=== PATIENT | male | born 1985 | race Caucasian/White ===

== ENCOUNTER → 2021-06-20 09:37 | Outpatient (BNVA) | payer OTHER, SELFPAY | PROVIDERS: PCP Physician Assistant Medical; Visit Provider Internal Medicine | DX: G71.00 Muscular dystrophy, unspecified (principal); I45.6 Pre-excitation syndrome; F11.99 Opioid use, unspecified with unspecified opioid-induced disorder; F10.10 Alcohol abuse, uncomplicated; F12.10 Cannabis abuse, uncomplicated; F17.200 Nicotine dependence, unspecified, uncomplicated; Z51.81 Encounter for therapeutic drug level monitoring | CPT/HCPCS: 80305; 99202 ==

== ENCOUNTER → 2021-06-27 13:12 | Outpatient (BNVA) | payer OTHER, SELFPAY | PROVIDERS: PCP Physician Assistant Medical; Visit Provider Internal Medicine | DX: Z51.81 Encounter for therapeutic drug level monitoring (principal); F11.90 Opioid use, unspecified, uncomplicated | CPT/HCPCS: 80305; 99212 ==

== ENCOUNTER → 2021-07-04 13:20 | Outpatient (BNVA) | payer OTHER, SELFPAY | PROVIDERS: PCP Physician Assistant Medical; Visit Provider Internal Medicine | DX: F11.20 Opioid dependence, uncomplicated (principal); Z51.81 Encounter for therapeutic drug level monitoring; Z79.899 Other long term (current) drug therapy | CPT/HCPCS: 80305; 99212 ==

== ENCOUNTER → 2021-07-11 13:54 | Outpatient (BNVA) | payer OTHER, SELFPAY | PROVIDERS: PCP Physician Assistant Medical; Visit Provider Internal Medicine | DX: F11.20 Opioid dependence, uncomplicated (principal); Z51.81 Encounter for therapeutic drug level monitoring; Z79.899 Other long term (current) drug therapy | CPT/HCPCS: 80305; 99212 ==

== ENCOUNTER → 2021-07-17 10:47 | Outpatient (BNVA) | payer OTHER, SELFPAY | PROVIDERS: Visit Provider Internal Medicine | DX: F11.90 Opioid use, unspecified, uncomplicated (principal) | CPT/HCPCS: 80305; 99212 ==

== ENCOUNTER → 2021-07-28 11:45 | Outpatient (BNVA) | payer OTHER, SELFPAY | PROVIDERS: Visit Provider Internal Medicine | DX: Z51.81 Encounter for therapeutic drug level monitoring (principal); F11.90 Opioid use, unspecified, uncomplicated | CPT/HCPCS: 80305; 99212 ==

== ENCOUNTER → 2021-08-11 15:47 | Outpatient (BNVA) | payer OTHER, SELFPAY | PROVIDERS: Visit Provider Internal Medicine | DX: Z51.81 Encounter for therapeutic drug level monitoring (principal); F11.90 Opioid use, unspecified, uncomplicated | CPT/HCPCS: 99212 ==

== ENCOUNTER → 2021-08-25 10:15 | Outpatient (BNVA) | payer OTHER, SELFPAY | PROVIDERS: Visit Provider Internal Medicine | DX: Z51.81 Encounter for therapeutic drug level monitoring (principal); F11.90 Opioid use, unspecified, uncomplicated; F17.200 Nicotine dependence, unspecified, uncomplicated | CPT/HCPCS: 80305; 99212 ==

== ENCOUNTER → 2021-09-25 10:45 | Outpatient (BNVA) | payer OTHER, SELFPAY | PROVIDERS: Visit Provider Internal Medicine | DX: Z51.81 Encounter for therapeutic drug level monitoring (principal); F11.20 Opioid dependence, uncomplicated | CPT/HCPCS: 80305; 99212 ==

== ENCOUNTER → 2021-10-23 10:27 | Outpatient (BNVA) | payer OTHER, SELFPAY | PROVIDERS: Visit Provider Internal Medicine | DX: Z51.81 Encounter for therapeutic drug level monitoring (principal); Z79.899 Other long term (current) drug therapy | CPT/HCPCS: 80305 ==

== ENCOUNTER → 2021-11-17 09:59 | Outpatient (BNVA) | payer OTHER, SELFPAY | PROVIDERS: Visit Provider Internal Medicine | DX: Z51.81 Encounter for therapeutic drug level monitoring (principal); F11.20 Opioid dependence, uncomplicated | CPT/HCPCS: 80305; 99211 ==

== ENCOUNTER → 2022-01-12 10:24 | Outpatient (BNVA) | payer OTHER, SELFPAY | PROVIDERS: Visit Provider Internal Medicine | DX: Z51.81 Encounter for therapeutic drug level monitoring (principal); F11.20 Opioid dependence, uncomplicated | CPT/HCPCS: 80305; 99211 ==

== ENCOUNTER → 2022-03-09 10:16 | Outpatient (BNVA) | payer OTHER, SELFPAY | PROVIDERS: Visit Provider Internal Medicine | DX: Z51.81 Encounter for therapeutic drug level monitoring (principal); F11.20 Opioid dependence, uncomplicated | CPT/HCPCS: 80305; 99212 ==

== ENCOUNTER → 2022-04-11 13:50 | Outpatient (BNVA) | payer OTHER, SELFPAY | PROVIDERS: Visit Provider Internal Medicine | DX: Z51.81 Encounter for therapeutic drug level monitoring (principal); F11.20 Opioid dependence, uncomplicated | CPT/HCPCS: 80305; 96372; Q9992 ==

== ENCOUNTER → 2022-05-02 13:56 | Outpatient (BNVA) | payer OTHER, SELFPAY | PROVIDERS: Visit Provider Internal Medicine | DX: Z51.81 Encounter for therapeutic drug level monitoring (principal); F11.20 Opioid dependence, uncomplicated | CPT/HCPCS: 80305; 96372; Q9992 ==

== ENCOUNTER → 2022-06-01 13:27 | Outpatient (BNVA) | payer OTHER, SELFPAY | PROVIDERS: Visit Provider Internal Medicine | DX: F11.20 Opioid dependence, uncomplicated (principal); Z51.81 Encounter for therapeutic drug level monitoring; Z79.899 Other long term (current) drug therapy | CPT/HCPCS: Q9991 ==

== ENCOUNTER → 2022-08-22 12:56 | Outpatient (BNVA) | payer OTHER, SELFPAY | PROVIDERS: Visit Provider Psychiatry & Neurology Neurology | DX: G71.02 Facioscapulohumeral muscular dystrophy (principal); M54.9 Dorsalgia, unspecified; M41.9 Scoliosis, unspecified; R20.0 Anesthesia of skin; R20.2 Paresthesia of skin | CPT/HCPCS: 99202 ==

== ENCOUNTER 2022-09-10 17:57 | Outpatient (REF) | payer OTHER, SELFPAY ==
--- NOTE | ~2022-09-10 | MR_ITS ---
EXAMINATION: MR LUMBAR SPINE WITHOUT CONTRAST CLINICAL INFORMATION: Dorsalgia. COMPARISON: None TECHNIQUE: MRI of the lumbar spine was obtained using routine sequences without contrast. FINDINGS: The lumbar vertebral bodies maintain normal heights and alignment. Mild edema seen at the anterior superior corner of T12, likely degenerative. The disc heights are preserved. The distal spinal cord appears normal. The conus medullaris terminates normally at the L1 level. There is significant fatty atrophy of the paraspinal and gluteal musculature. The imaged portions of the intra-abdominal and intrapelvic contents are within normal limits. SPINAL LEVELS: L1-L2: No posterior disc abnormality. No spinal canal or neural foraminal stenosis. L2-L3: No posterior disc abnormality. No spinal canal or neural foraminal stenosis. L3-L4: No posterior disc abnormality. No spinal canal or neural foraminal stenosis. L4-L5: Mild disc bulging with mild facet arthropathy. Mild narrowing of the bilateral neural foramina. No spinal canal stenosis. L5-S1: Prominent epidural fat. No spinal canal stenosis. Mild facet arthropathy. No neural foraminal stenosis. MR/MR lumbar spine wo con IMPRESSION: 1. No significant narrowing of the spinal canal or neural foramina. No nerve root compression identified. 2. Significant fatty atrophy of the paraspinal and gluteal musculature of uncertain etiology but given the patient's age, further evaluation is recommended.
== END 2022-09-10 17:58 | disposition home or self-care (01) ==
LOC: HO.MRI 17:57
PROVIDERS: Visit Provider Psychiatry & Neurology Neurology
DX: M54.9 Dorsalgia, unspecified (principal); M41.9 Scoliosis, unspecified; G71.02 Facioscapulohumeral muscular dystrophy
CPT/HCPCS: 72148

== ENCOUNTER 2022-10-25 13:18 | Outpatient (REF) | payer OTHER, SELFPAY ==
--- NOTE | 2022-10-25 09:30 | EMG_ITS ---
Bilateral median and ulnar motor and sensory studies were performed. Bilateral radial sensory studies were performed and paraspinal muscles were tested with a needle. IMPRESSION: 1. Wmad-af-bnypctkw bilateral median neuropathy across carpal tunnel. 2. 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 MD ABI Siddiqui/DEEPTHI / [id number]
== END 2022-10-25 13:19 | disposition home or self-care (01) ==
LOC: HO.NEURO 13:18
PROVIDERS: Visit Provider Psychiatry & Neurology Neurology
DX: R20.0 Anesthesia of skin (principal); R20.2 Paresthesia of skin
CPT/HCPCS: 95886; 95911

== ENCOUNTER → 2022-11-26 12:59 | Outpatient (BNVA) | payer OTHER, SELFPAY | PROVIDERS: Visit Provider Psychiatry & Neurology Neurology | DX: G71.02 Facioscapulohumeral muscular dystrophy (principal); M54.9 Dorsalgia, unspecified; M41.9 Scoliosis, unspecified; R20.0 Anesthesia of skin; R20.2 Paresthesia of skin; Z99.3 Dependence on wheelchair | CPT/HCPCS: 99212 ==

== ENCOUNTER 2023-04-18 22:18 | Emergency (ER) | payer OTHER, SELFPAY ==
[2023-04-18 22:28] VITALS: BP 159/105; PULSE 86; RESP 18; TEMP 37; O2SAT 96; BMI 40.7
[2023-04-18 22:55] LABS: MANUAL DIFF FLAG NO
[2023-04-18 22:57] LABS: Appearance Urine Clear; Color Urine Dark Yellow; Glucose Urine UA Negative (Negative); Leukocyte Esterase Urine Negative (Negative); Nitrite Urine Negative (Negative); Specific Gravity - Urine >= 1.030 (1.005-1.025); Urine Blood Negative (Negative); Urine Ketones Negative (Negative); Urine Protein Negative (Neg-Trace)
[2023-04-18 23:00] LABS: Basophils Absolute Auto 0.1 X10*3/uL (0.0-0.2); Basophils Percent Auto 0.4 % (0-2); Eosinophils Absolute Auto 0.2 X10*3/uL (0.0-0.4); Eosinophils Percent Auto 1.2 % (0-4); Hematocrit 48.2 % (42.0-52.0); Hemoglobin 16.1 g/dl (14.0-18.0); Imm Gran Abs Auto 0.02 X10*3/uL (0.00-0.03); Imm Gran Pct Auto 0.2 % (0.0-0.4); Lymphocytes Absolute Auto 4.2 X10*3/uL (1.2-4.9); Lymphocytes Percent Auto 31.8 % (20-40); Mean Corpuscular HGB Conc 33.4 g/dl (31.0-36.0); Mean Corpuscular Hemoglobin 31.8 pg (27.0-33.0); Mean Corpuscular Volume 95.3 fL (80.0-98.0); Mean Platelet Volume 11.5 fL (9.4-12.4); Monocytes Absolute Auto 1.1 X10*3/uL (0.1-1.2); Monocytes Percent Auto 8.3 % (2-11); Neutrophils Absolute Auto 7.6 x10*3/uL (2.0-8.3); Neutrophils Percent Auto 58.1 % (45-73); Platelet Count 243 X10*3/uL (160-400); Red Blood Count 5.06 X10*6/uL (4.60-5.80); Red Cell Distribution Width 13.2 % (11.0-16.0); White Blood Count 13.1 X10*3/uL (4.8-10.8)
[2023-04-18 23:12] LABS: Anion Gap 14 (12-20); Blood Urea Nitrogen 12 mg/dL (9-16); Calcium 9.9 mg/dL (8.4-10.2); Carbon Dioxide 27 mmol/L (22-29); Chloride 102 mmol/L (96-108); Creatinine Clr Calc Pharmacy 191.1; Estimated Glomerular Filt Rate > 60; Glucose Random 128 mg/dL (60-115); Potassium 4.1 mmol/L (3.3-5.1); Sodium 139 mmol/L (135-145)
--- NOTE | 2023-04-18 23:28 | ED_ITS ---
HPI - Male Genitourinary General Chief complaint: Urogenital-Male Stated complaint: ?uti Time Seen by Provider: 04/18/23 22:57 Source: patient Mode of arrival: ambulatory Limitations: no limitations History of Present Illness HPI Narrative: Patient is a 37-year-old male presents emergency department for evaluation of burning sensation to the shaft of his penis. He is being followed by his primary care provider for a fungal infection for which he is being prescribed clotrimazole. He states he has been using this for the past week but his symptoms continue. He states he initially had testing including gonorrhea, chlamydia, and a urinalysis all of which were negative. He denies concern of sexually transmitted infections at this time, he is only 1 sexual partner, his partner is not new. He denies any swelling, fevers, chills, burning upon urination. Related Data Home Medications Medication Instructions Recorded Confirmed albuterol sulfate 90 mcg/actuation 0 mcg inhalation 08/20/22 11/26/22 aerosol inhaler lisinopril 20 mg tablet 20 mg PO DAILY 08/20/22 11/26/22 Allergies Allergy/AdvReac Type Severity Reaction Status Date / Time naproxen Allergy Mild Unknown Verified 04/18/23 22:27 acetaminophen [From Vicodin] Allergy Unknown Itching Verified 04/18/23 22:27 baclofen Allergy Unknown ITCH, Verified 04/18/23 22:27 Dizziness hydrocodone [From Vicodin] Allergy Unknown Itching Verified 04/18/23 22:27 tramadol [TRAMADOL] Allergy Unknown ITCH Verified 04/18/23 22:27 [facility] Past Medical History Attestation statement: The following information was validated with the patient. Source: old records reviewed Medical History Back pain Carpal tunnel syndrome GERD (gastroesophageal reflux disease) HTN (hypertension) Hyperlipidemia Hypoxemia Muscular dystrophy Numbness and tingling in both hands Opioid use disorder GABRIEL on CPAP Right hip pain Scoliosis Tobacco use disorder WPW (Zfike-Vybdrvgvu-Zmdld syndrome) Family History Family History Mother Hypotension Muscular dystrophy Father Heart disease Social History Social History Alcohol intake: current Alcohol intake frequency: holidays/special occasions only Patient Tobacco Use Status: Current everyday Tobacco user Cigarette Packs Per Day: 1 Years Smoked: 20 e-Cigarette/Vaping Use: Never Used Substance Use Type: Marijuana Advance Directives: No Advance Directives Information Provided: Yes Physical Exam Vital Signs: Vital Signs: Last Vital Signs Temp 98.6 F 04/18/23 22:28 Pulse 86 04/18/23 22:28 Resp 18 04/18/23 22:28 BP 159/105 H 04/18/23 22:28 Pulse Ox 96 04/18/23 22:28 O2 Del Method Room Air 04/18/23 22:28 BMI result Body Mass Index 40.7 Vital signs have been reviewed as normal and appeared to be correct. Blood pressure initially elevated 159/105, patient with history of hypertension and anxiety, upon repeat 134/87..? Heart rate normal.? Respiration rate normal. T emperature normal.? Oxygen saturation normal. Appearance: Alert.?Oriented to person, place and time. No acute distress.?Normal affect. CVS: Heart sounds normal. Normal heart rate and rhythm.? Pulses normal.?? Respiratory: No respiratory distress.? Lung sounds clear to auscultation bilaterally?? Abdomen: Soft and non-tender. Normoactive bowel sounds. ? Genitourinary: Performed with frankie gonzalez; Sandip. Tinea cruris of scrotum/penile shaft with small fissure adjacent to the urethral meatus Skin: Skin warm and dry.? Normal skin color.? Neuro: Moves all extremities spontaneously. Sensation intact bilaterally. Ambulates with normal steady gait. Medical Decision Making Medical Decision Making MDM Narrative: Patient is a 37-year-old male who presents emergency department for painful irritation of the penis for which she is being followed by his primary care provider being treated for yeast infection with topical clotrimazole. Examination at this time is consistent with yeast infection, there is a small fissure adjacent to the urethral meatus. At this time I advised patient he should continue with current treatment, offered repeat testing for sexually transmitted infection, however he declines concern at this time. I reviewed serum labs obtained from triage; CBC reveals mild leukocytosis of 13.1 without left shift. BMP is overall unremarkable, aside from mildly elevated glucose. Urinalysis is not consistent with urinary tract infection. Patient will follow- up with primary care provider, and reviewed worrisome signs and symptoms that would warrant re-evaluation the emergency department. Differential Diagnosis Differential Diagnoses: The differential diagnosis associated with the presentation includes (Herpes simplex virus, chlamydia, gonorrhea, syphilis, tinea cruris, Cathy, urinary tract infection) Lab Data [facility] Lab Attestation statement: I reviewed the patient's lab results. (Findings As noted in [facility] narrative) 04/18/23 22:50 04/18/23 22:50 Labs: Lab Results 04/18/23 04/18/23 04/18/23 Range/Units 22:50 22:50 22:50 WBC 13.1 H (4.8-10.8) X10*3/uL RBC 5.06 (4.60-5.80) X10*6/uL Hgb 16.1 (14.0-18.0) g/dl Hct 48.2 (42.0-52.0) % MCV 95.3 (80.0-98.0) fL MCH 31.8 (27.0-33.0) pg MCHC 33.4 (31.0-36.0) g/dl RDW 13.2 (11.0-16.0) % Plt Count 243 (160-400) X10*3/uL MPV 11.5 (9.4-12.4) fL Immature Gran % (Auto) 0.2 (0.0-0.4) % Neut % (Auto) 58.1 (45-73) % Lymph % (Auto) 31.8 (20-40) % Wake % (Auto) 8.3 (2-11) % Eos % (Auto) 1.2 (0-4) % Baso % (Auto) 0.4 (0-2) % Lymph # (Auto) 4.2 (1.2-4.9) X10*3/uL Wake # (Auto) 1.1 (0.1-1.2) X10*3/uL Eos # (Auto) 0.2 (0.0-0.4) X10*3/uL Baso # (Auto) 0.1 (0.0-0.2) X10*3/uL Abs Immat Gran (auto) 0.02 (0.00-0.03) X10*3/uL Absolute Neuts (auto) 7.6 (2.0-8.3) x10*3/uL Absolute Nucleated RBC 0.000 (0.0-0.012) X10*3/uL Nucleated RBC % (auto) 0.0 (0.0-0.2) /100WBC Sodium 139 (135-145) mmol/L Potassium 4.1 (3.3-5.1) mmol/L Chloride 102 (96-108) mmol/L Carbon Dioxide 27 (22-29) mmol/L Anion Gap 14 (12-20) BUN 12 (9-16) mg/dL Creatinine 0.65 (0.5-1.4) mg/dL Estim Creat Clear Calc 191.1 Estimated GFR > 60 Random Glucose 128 H (60-115) mg/dL Calcium 9.9 (8.4-10.2) mg/dL Urine Color Dark Yellow Urine Appearance Clear Urine pH 6.0 (5.0-9.0) Ur Specific [place] >= 1.030 H (1.005-1.025) Urine Protein Negative (Neg-Trace) mg/dL Urine Glucose (UA) Negative (Negative) mg/dL Urine Ketones Negative (Negative) mg/dL Urine Blood Negative (Negative) Urine Nitrite Negative (Negative) Ur Leukocyte Esterase Negative (Negative) Discharge Plan Discharge Clinical Impression: Tinea cruris Patient Disposition: Home, Self-Care Instructions: Shailesh Stephen (ED) Additional Instructions: Continue using the antifungal cream as prescribed by your primary care provider. Please contact their office tomorrow to arrange for follow-up You may return back to emergency department any new or worsening symptoms or concerns. Prescriptions: No Action lisinopril 20 mg tablet 20 mg PO DAILY albuterol sulfate 90 mcg/actuation HFA aerosol inhaler 0 mcg inhalation Referrals: Physician,Unknown J [Primary Care Provider] -
--- NOTE | 2023-04-18 23:35 | PC.NURSE ---
Pt A&Ox4, Pt denies any pain at this time, reports burning to head of penis x 2 weeks and recent tx for yeast infection, denies pain/discharge/itching or pain with urination. Pt denies any ABD pain, N/V/D.
== END 2023-04-19 00:12 | disposition home or self-care (01) ==
PROVIDERS: Emergency Provider Student in an Organized Health Care Education/Training Program
DX: B35.6 Tinea cruris (principal); Z79.899 Other long term (current) drug therapy
CPT/HCPCS: 36415; 80048; 81003; 85025; 99283; 99284

== ENCOUNTER 2023-04-24 07:44 | Emergency (ER) | payer OTHER, SELFPAY ==
[2023-04-24 07:48] VITALS: BP 158/89; PULSE 89; RESP 20; TEMP 36.1; O2SAT 97; BMI 40.7
[2023-04-24 08:07] VITALS: BP 141/83; PULSE 108; RESP 17; O2SAT 98
--- NOTE | 2023-04-24 08:07 | ED_ITS ---
HPI - Male Genitourinary General Chief complaint: Urogenital-Male Stated complaint: Burning when Urinating Time Seen by Provider: 04/24/23 08:04 Source: patient Mode of arrival: ambulatory Limitations: no limitations History of Present Illness HPI Narrative: 2 weeks of penile burning. No burning with urination. There is burning when urine gets on the penis. No drainage from the penis. Onset (ago): week(s) Duration: constant Related Data Home Medications Medication Instructions Recorded Confirmed albuterol sulfate 90 mcg/actuation 0 mcg inhalation 08/20/22 11/26/22 aerosol inhaler lisinopril 20 mg tablet 20 mg PO DAILY 08/20/22 11/26/22 Allergies Allergy/AdvReac Type Severity Reaction Status Date / Time naproxen Allergy Mild Unknown Verified 04/24/23 07:51 acetaminophen [From Vicodin] Allergy Unknown Itching Verified 04/24/23 07:51 baclofen Allergy Unknown ITCH, Verified 04/24/23 07:51 Dizziness hydrocodone [From Vicodin] Allergy Unknown Itching Verified 04/24/23 07:51 tramadol [TRAMADOL] Allergy Unknown ITCH Verified 04/24/23 07:51 Review of Systems Review of Systems: Yes all other systems are reviewed and are negative Neurologic: Denies Sensory deficit (Neuro) PMFSH Past Medical History Medical History Back pain Carpal tunnel syndrome GERD (gastroesophageal reflux disease) HTN (hypertension) Hyperlipidemia Hypoxemia Muscular dystrophy Numbness and tingling in both hands Opioid use disorder GABRIEL on CPAP Right hip pain Scoliosis Tobacco use disorder WPW (Gepzl-Tqadxfkrq-Vjjvf syndrome) Family History Family History Mother Hypotension Muscular dystrophy Father Heart disease Social History Social History Alcohol intake: current Alcohol intake frequency: does not drink Patient Tobacco Use Status: Current everyday Tobacco user Cigarette Packs Per Day: 1 Years Smoked: 20 Smoked in Last 30 Days: No e-Cigarette/Vaping Use: Never Used Use of substances other than those prescribed or required for medical reasons: Yes Substance Use Type: Marijuana Advance Directives: No Advance Directives Information Provided: Yes Physical Exam Vital Signs: Vital Signs: Last Vital Signs Temp 98.7 F 04/24/23 10:22 Pulse 71 04/24/23 10:22 Resp 16 04/24/23 10:22 BP 117/72 04/24/23 10:22 Pulse Ox 99 04/24/23 10:22 O2 Del Method Room Air 04/24/23 10:22 BMI result Body Mass Index 40.7 Const: Nutritional Appearance: obese Orientation/consciousness: oriented to person and patient oriented x3 Limitations: no limitations HEENT: Head: Yes normal to inspection Ears: external ears normal General nose exam: Normal external nose present Mouth: Normal oral and palatal mucosa present and oropharynx normal Throat: Yes posterior oropharynx normal Eyes: General: appearance normal, both eyes and all related structures Neck: Other: supple Neck: Yes normal visual inspection Chest: Chest palpation & inspection: normal inspection of the chest Resp: Auscultation: clear to auscultation bilaterally Cardio: Jugular venous distension: no JVD Rate: regular rate Rhythm: regular rhythm Heart sounds: S1 normal heart sound present and S2 normal heart sound present GI: Inspection: Yes normal to inspection Palpation (GI): Soft to palpation, nontender and No hepatosplenomegaly present Auscultation: normal bowel sounds : Other: penis with erythema under and around glans consistent with candidiasis Skin: General skin exam: no rashes or lesions noted Neuro: General: oriented to person and patient oriented x3 Cranial nerves: Yes CN's II-XII intact bilaterally Motor exam (neuro): 5/5 motor strength present throughout Sensory Exam: No Sensory deficit (Neuro) Extrem: General: Yes normal to inspection Psych: Appearance: grossly normal Course Reevaluation(s) Reevaluation #1: patient with likely early diabetes and candidiasis will dc home Time: 10:29 Medications Administered Discontinued Medications Generic Name Dose Route Start Last Admin Trade Name Freq PRN Reason Stop Dose Admin Fluconazole 150 mg 04/24/23 08:13 04/24/23 08:19 Fluconazole 150 Mg Tablet PO 04/24/23 08:14 150 mg ONCE ONE Administration Medical Decision Making Differential Diagnosis Differential Diagnoses: The differential diagnosis associated with the presentation includes (Urinary tract infection, STD, diabetes were all considered) Lab Data MDM Lab Attestation statement: I reviewed the patient's lab results. (significant for no UTI, elevated glucose at 125) Labs: Lab Results 07/05/23 07/05/23 Range/Units 08:00 08:18 POC Glucose 125 H (60-115) mg/dL Urine Color Yellow Urine Appearance Clear Urine pH 5.5 (5.0-9.0) Ur Specific [place] >= 1.030 H (1.005-1.025) Urine Protein Negative (Neg-Trace) mg/dL Urine Glucose (UA) Negative (Negative) mg/dL Urine Ketones Trace (Negative) mg/dL Urine Blood Negative (Negative) Urine Nitrite Negative (Negative) Ur Leukocyte Esterase Negative (Negative) Tests considered The following testing was considered but not selected: I considered getting a chem 7 but glucose only 125 Discharge Plan Discharge Clinical Impression: Candidiasis, Diabetes Patient Disposition: Home, Self-Care Instructions: Diabetes and Your Skin (ED) Prescriptions: No Action lisinopril 20 mg tablet 20 mg PO DAILY albuterol sulfate 90 mcg/actuation HFA aerosol inhaler 0 mcg inhalation
[2023-04-24 10:22] VITALS: BP 117/72; PULSE 71; RESP 16; TEMP 37.1; O2SAT 99
== END 2023-04-24 12:12 | disposition home or self-care (01) ==
PROVIDERS: Emergency Provider Emergency Medicine; PCP Internal Medicine
DX: B37.9 Candidiasis, unspecified (principal); E11.9 Type 2 diabetes mellitus without complications; I10 Essential (primary) hypertension; E78.5 Hyperlipidemia, unspecified; G47.33 Obstructive sleep apnea (adult) (pediatric); Z99.89 Dependence on other enabling machines and devices; F17.210 Nicotine dependence, cigarettes, uncomplicated
CPT/HCPCS: 81003; 82947; 99283; 99284

== ENCOUNTER 2023-05-16 23:11 | Emergency (ER) | payer OTHER, SELFPAY ==
--- NOTE | ~2023-05-16 | CT_ITS ---
EXAMINATION: CT ABDOMEN AND PELVIS WITHOUT CONTRAST CLINICAL INFORMATION: Right abdominal pain COMPARISON: 11/20/2016 TECHNIQUE: Multidetector volumetric imaging was performed from the superior aspect of the liver through the pubic symphysis. Sagittal and coronal reformatted images were obtained on the technologist's workstation. This CT examination was performed using dose optimization techniques as appropriate, variously including the following: *Automated exposure control *Adjustment of mA and/or kV according to patient size (this includes techniques or standardized protocols for targeted exams where dose is matched to indication/reason for exam; i.e. extremities or head) *Use of iterative reconstruction technique DLP: 871 mGy-cm FINDINGS: LUNG BASES: The visualized lung bases are unremarkable. LIVER, GALLBLADDER, AND BILIARY TREE: The liver is normal in size and shape with decreased attenuation. No focal hepatic lesion or biliary ductal dilatation is present. The gallbladder is unremarkable with no evidence of radiopaque gallstones, gallbladder wall thickening, or obvious pericholecystic inflammatory changes. PANCREAS: Unremarkable. SPLEEN: Unremarkable. ADRENAL GLANDS: Unremarkable. KIDNEYS AND URETERS: The kidneys are normal in size, shape, and attenuation. No hydronephrosis, hydroureter, or calculi seen. No perinephric stranding. BLADDER: Unremarkable. GASTROINTESTINAL TRACT: The stomach is unremarkable. Normal caliber small bowel. There is no obstruction. Normal appendix. No colonic wall thickening or inflammation. No free air or free fluid. ABDOMINAL WALL: No significant hernia is appreciated. LYMPH NODES: Normal. VASCULAR: Normal caliber aorta with mild atherosclerotic vascular calcifications noted. PELVIC VISCERA: The prostate and seminal vesicles are unremarkable. OSSEOUS STRUCTURES: No acute or suspicious osseous abnormality. Mild degenerative change throughout the spine. Small endplate osteophytes are present. CT/CT abdomen pelvis wo IV con IMPRESSION: 1. No acute findings in the abdomen or pelvis. No inflammatory changes. Normal appendix. 2. Hepatic steatosis. Fleischner guidelines were followed.
[2023-05-16 23:36] VITALS: BP 133/90; PULSE 116; RESP 20; TEMP 36.6; O2SAT 95; BMI 41.5
[2023-05-17 00:23] LABS: MANUAL DIFF FLAG NO
[2023-05-17 00:24] VITALS: BP 143/84; PULSE 95; RESP 18; TEMP 36.7; O2SAT 95
[2023-05-17 00:24] LABS: Basophils Percent Auto 0.4 % (0-2); Eosinophils Absolute Auto 0.2 X10*3/uL (0.0-0.4); Hemoglobin 14.7 g/dl (14.0-18.0); Imm Gran Abs Auto 0.02 X10*3/uL (0.00-0.03); Imm Gran Pct Auto 0.2 % (0.0-0.4); Lymphocytes Absolute Auto 3.1 X10*3/uL (1.2-4.9); Mean Corpuscular HGB Conc 32.7 g/dl (31.0-36.0); Mean Corpuscular Hemoglobin 31.5 pg (27.0-33.0); Mean Corpuscular Volume 96.4 fL (80.0-98.0); Mean Platelet Volume 11.4 fL (9.4-12.4); Monocytes Absolute Auto 0.7 X10*3/uL (0.1-1.2); Monocytes Percent Auto 8.6 % (2-11); Neutrophils Absolute Auto 4.5 x10*3/uL (2.0-8.3); Neutrophils Percent Auto 52.8 % (45-73); Platelet Count 226 X10*3/uL (160-400); Red Blood Count 4.67 X10*6/uL (4.60-5.80); Red Cell Distribution Width 12.9 % (11.0-16.0); White Blood Count 8.5 X10*3/uL (4.8-10.8)
[2023-05-17 00:26] LABS: Appearance Urine Clear; Color Urine Yellow; Glucose Urine UA Negative (Negative); Leukocyte Esterase Urine Trace (Negative); Nitrite Urine Negative (Negative); Specific Gravity - Urine >= 1.030 (1.005-1.025); UMIC TRIGGER UACC YES; Urine Blood Negative (Negative); Urine Ketones Trace mg/dL (Negative); Urine Protein 30 (1+) mg/dL (Neg-Trace)
[2023-05-17 00:31] LABS: Bacteria Urine None Seen (None Seen); Hyaline Casts Urine 0-2 /LPF (0-2); RBC Urine 0-2 /HPF (0-2); UACC Culture Trigger YES
[2023-05-17 00:48] LABS: Alanine Aminotransferase 49 U/L (0-40); Albumin Level 4.3 g/dL (3.5-5.0); Alkaline Phosphatase 71 U/L (39-117); Anion Gap 18 (12-20); Aspartate Amino Transferase 30 U/L (5-37); Bilirubin Direct 0.2 mg/dL (0.0-0.5); Bilirubin Total 0.8 mg/dL (0.0-1.0); Blood Urea Nitrogen 11 mg/dL (9-16); Calcium 10.2 mg/dL (8.4-10.2); Carbon Dioxide 23 mmol/L (22-29); Chloride 105 mmol/L (96-108); Estimated Glomerular Filt Rate > 60; Glucose Random 151 mg/dL (60-115); Lipase 22 U/L (8-78); Potassium 4.2 mmol/L (3.3-5.1); Sodium 142 mmol/L (135-145); Total Protein 7.8 g/dL (6.5-8.0)
--- NOTE | 2023-05-17 01:26 | ED.ABDPAIN ---
HPI - Abdominal Pain General Chief Complaint: Abdominal Pain Stated Complaint: abd pain Time Seen by Provider: 05/17/23 00:27 Source: patient and family Mode of arrival: ambulatory Limitations: no limitations History of Present Illness HPI narrative: 37-year-old male presented for evaluation of lower abdominal pain. Abdominal pain symptoms started about a month ago that is associated with severe burning in the genital you patient was evaluated by PCP several times and has been tested for STDs with negative results, patient declined risk for STDs, no past intra-abdominal surgery history. Pain is associated with nausea no vomiting, good appetite Parth's. Related Data Home Medications Medication Instructions Recorded Confirmed albuterol sulfate 90 mcg/actuation 0 mcg inhalation 08/20/22 11/26/22 aerosol inhaler lisinopril 20 mg tablet 20 mg PO DAILY 08/20/22 11/26/22 Previous Rx's Medication Instructions Recorded fluconazole 150 mg tablet 150 mg PO DAILY #1 tab 04/24/23 (Diflucan) cefuroxime axetil 500 mg tablet 500 mg PO Q12H #14 tabs 05/17/23 Allergies Allergy/AdvReac Type Severity Reaction Status Date / Time naproxen Allergy Mild Unknown Verified 05/16/23 23:36 acetaminophen [From Vicodin] Allergy Unknown Itching Verified 05/16/23 23:36 baclofen Allergy Unknown ITCH, Verified 05/16/23 23:36 Dizziness hydrocodone [From Vicodin] Allergy Unknown Itching Verified 05/16/23 23:36 tramadol [TRAMADOL] Allergy Unknown ITCH Verified 05/16/23 23:36 Review of Systems Review of Systems All other systems are reviewed and are negative Constitutional: Reports as per HPI and Reports no additional constitutional complaints Eyes: Reports as per HPI and Reports no additional eye complaints Reports system reviewed and no additional complaints, except as documented Cardiovascular: Reports as per HPI and Reports no additional cardiovascular complaints Respiratory: Reports as per HPI and Reports no additional respiratory complaints Gastrointestinal: Reports as per HPI and Reports no additional gastrointestinal complaints Genitourinary: Reports no additional female genitourinary complaints Musculoskeletal: Reports no additional musculoskeletal complaints Skin/Breast: Reports system reviewed and no additional complaints, except as docu Psychiatric: Reports no additional psychiatric complaints Endocrine: Reports no additional endocrine complaints Hematologic/Lymphatic: Reports no additional hematologic/lymphatic complaints Allergic/Immunologic: Reports no additional allergic/immunologic complaints Reports system reviewed and no additional complaints, except as documented and Reports Abnormal speech present [facility] Past Medical History Medical History Back pain Carpal tunnel syndrome GERD (gastroesophageal reflux disease) HTN (hypertension) Hyperlipidemia Hypoxemia Muscular dystrophy Numbness and tingling in both hands Opioid use disorder GABRIEL on CPAP Right hip pain Scoliosis Tobacco use disorder WPW (Ujckm-Oybjpoong-Chslx syndrome) Family History Family History Mother Hypotension Muscular dystrophy Father Heart disease Social History Social History Alcohol intake: current Alcohol intake frequency: does not drink Patient Tobacco Use Status: Current everyday Tobacco user Cigarette Packs Per Day: 1 Years Smoked: 20 e-Cigarette/Vaping Use: Never Used Substance Use Type: Marijuana Advance Directives: No Advance Directives Information Provided: No Physical Exam ED Vital Signs: Vital Signs - 24 hr 05/16/23 23:36 05/17/23 00:24 05/17/23 01:59 Temperature 98 F 98.1 F 98.2 F Pulse Rate 116 H 95 77 Respiratory Rate 20 18 16 Blood Pressure 133/90 H 143/84 H 119/83 Pulse Oximetry 95 95 96 Oxygen Delivery Method Room Air Room Air Room Air BMI result Body Mass Index 41.5 Vital signs have been reviewed as appeared to be correct. Blood pressure normal. Heart rate normal. Respiration rate normal. Temperature normal. Oxygen saturation normal. Appearance: Alert. Oriented X3. No acute distress. Head: Normal external exam. Normocephalic. Atraumatic. No Henry signs noted. No raccoon eyes noted Eyes: PERRLA. EOMI. Conjunctiva and sclera normal. Eyelids normal. ENT: TM's Normal. Pharynx normal. Uvula midline. Moist mucous membranes. No trismus noted. No drooling noted. No muffled voice noted. Neck: Normal inspection. Neck supple. FROM. No adenopathy. Thyroid Normal. No meningeal signs. No neck mass noted. CVS: Normal heart rate and rhythm. Heart sound normal. No murmurs noted. Pulses normal throughout. Respiratory: No respiratory distress. Painless inspiration. Breath sounds normal. No wheezes/rales/rhonchi noted. Chest nontender. No accessory muscle usage noted or decreased air movement noted. Abdomen: Soft and nontender. Bowel sounds normal in all 4 quadrants. No distention noted. No organomegaly noted. No visible injury noted. Back: No CVA tenderness. Full range of motion noted. Skin: Skin warm and dry. Normal skin color. Normal skin turgor. No rashes/lesions/lacerations noted. Extremities: No lower extremity edema. Extremities exhibit normal range of motion. Extremities nontender. Neuro: Oriented X 3. Cranial nerve exam: II-XII are grossly intact No motor deficit. No sensory deficit. Reflexes normal. Course Course Course Narrative: 37-year-old male came in for acute on chronic abdominal pain, patient has unremarkable CT of the abdomen and pelvis unremarkable labs, UA is consistent with mild UTI start the patient on cefuroxime and drink plenty of fluids. will reassure the patient and instructed to follow-up with PCP. Medical Decision Making Differential Diagnosis Differential Diagnoses: The differential diagnosis associated with the presentation includes (Diverticular disease, colitis, appendicitis, pancreatitis, severe electrolyte abnormality, severe anemia, UTI.) Admission/Observation Consideration of admission/observation: Escalation of care including admission/observation considered Lab Data MDM Lab Attestation statement: I reviewed the patient's lab results. 05/17/23 00:20 05/17/23 00:18 Labs: Lab Results 05/17/23 05/17/23 05/17/23 Range/Units 00:18 00:20 00:20 WBC 8.5 (4.8-10.8) X10*3/uL RBC 4.67 (4.60-5.80) X10*6/uL Hgb 14.7 (14.0-18.0) g/dl Hct 45.0 (42.0-52.0) % MCV 96.4 (80.0-98.0) fL MCH 31.5 (27.0-33.0) pg MCHC 32.7 (31.0-36.0) g/dl RDW 12.9 (11.0-16.0) % Plt Count 226 (160-400) X10*3/uL MPV 11.4 (9.4-12.4) fL Immature Gran % (Auto) 0.2 (0.0-0.4) % Neut % (Auto) 52.8 (45-73) % Lymph % (Auto) 36.0 (20-40) % [place] % (Auto) 8.6 (2-11) % Eos % (Auto) 2.0 (0-4) % Baso % (Auto) 0.4 (0-2) % Lymph # (Auto) 3.1 (1.2-4.9) X10*3/uL [place] # (Auto) 0.7 (0.1-1.2) X10*3/uL Eos # (Auto) 0.2 (0.0-0.4) X10*3/uL Baso # (Auto) 0.0 (0.0-0.2) X10*3/uL Abs Immat Gran (auto) 0.02 (0.00-0.03) X10*3/uL Absolute Neuts (auto) 4.5 (2.0-8.3) x10*3/uL Absolute Nucleated RBC 0.000 (0.0-0.012) X10*3/uL Nucleated RBC % (auto) 0.0 (0.0-0.2) /100WBC Sodium 142 (135-145) mmol/L Potassium 4.2 (3.3-5.1) mmol/L Chloride 105 (96-108) mmol/L Carbon Dioxide 23 (22-29) mmol/L Anion Gap 18 (12-20) BUN 11 (9-16) mg/dL Creatinine 0.82 (0.5-1.4) mg/dL Estim Creat Clear Calc 153.0 Estimated GFR > 60 Random Glucose 151 H (60-115) mg/dL Calcium 10.2 (8.4-10.2) mg/dL Total Bilirubin 0.8 (0.0-1.0) mg/dL Direct Bilirubin 0.2 (0.0-0.5) mg/dL AST 30 (5-37) U/L ALT 49 H (0-40) U/L Alkaline Phosphatase 71 (39-117) U/L Total Protein 7.8 (6.5-8.0) g/dL Albumin 4.3 (3.5-5.0) g/dL Lipase 22 (8-78) U/L Urine Color Yellow Urine Appearance Clear Urine pH 6.0 (5.0-9.0) Ur Specific [place] >= 1.030 H (1.005-1.025) Urine Protein 30 (1+) H (Neg-Trace) mg/dL Urine Glucose (UA) Negative (Negative) mg/dL Urine Ketones Trace (Negative) mg/dL Urine Blood Negative (Negative) Urine Nitrite Negative (Negative) Ur Leukocyte Esterase Trace H (Negative) Urine RBC 0-2 (0-2) /HPF Urine WBC 11-20 H (0-5) /HPF Ur Squamous Epith Cells 3-5 (0-2) /HPF Urine Bacteria None Seen (None Seen) Hyaline Casts 0-2 (0-2) /LPF Independent Interpretation I performed an independent interpretation of an: CT Scan (Abdomen and pelvis: No acute intra-abdominal pathology.) Radiology Impression Discussion of test interpretation with radiology: I have reviewed the radiologist's reading. Discharge Plan Discharge Clinical Impression: Abdominal pain, Acute UTI Patient Disposition: Home, Self-Care Instructions: Abdominal Pain (ED) Prescriptions: New cefuroxime axetil 500 mg tablet 500 mg PO Q12H Qty: 14 0RF No Action fluconazole [Diflucan] 150 mg tablet 150 mg PO DAILY Qty: 1 0RF Rx Instructions: take in 10 days lisinopril 20 mg tablet 20 mg PO DAILY albuterol sulfate 90 mcg/actuation HFA aerosol inhaler 0 mcg inhalation Referrals: Bebeto Proctor MD [Primary Care Provider] -
[2023-05-17 01:59] VITALS: BP 119/83; PULSE 77; RESP 16; TEMP 36.8; O2SAT 96
== END 2023-05-17 03:33 | disposition home or self-care (01) ==
PROVIDERS: Emergency Provider Emergency Medicine; PCP Internal Medicine
DX: N39.0 Urinary tract infection, site not specified (principal); R10.2 Pelvic and perineal pain; F17.210 Nicotine dependence, cigarettes, uncomplicated; Z71.6 Tobacco abuse counseling; Z79.899 Other long term (current) drug therapy
CPT/HCPCS: 36415; 74176; 80048; 80076; 81001; 83690; 85025; 87086; 87147; 99284

== ENCOUNTER 2023-07-31 14:26 | Emergency (ER) | payer OTHER, SELFPAY ==
--- NOTE | ~2023-07-31 | XR_ITS ---
EXAMINATION: XR CHEST CLINICAL INFORMATION: Chest pain COMPARISON: None available. TECHNIQUE: Frontal view of the chest was obtained. FINDINGS: No significant abnormality is noted involving the heart, lungs, mediastinum, bony thorax or soft tissues. XR/XR chest 1V IMPRESSION: Unremarkable chest examination.
[2023-07-31 15:12] VITALS: BP 156/90; PULSE 102; RESP 20; TEMP 36.8; O2SAT 100; BMI 40.7
--- NOTE | 2023-07-31 15:13 | ED.GENADULT ---
HPI - General Adult General Stated complaint: Dizzy SOB Related Data Home Medications Medication Instructions Recorded Confirmed albuterol sulfate 90 mcg/actuation 0 mcg inhalation 08/20/22 11/26/22 aerosol inhaler lisinopril 20 mg tablet 20 mg PO DAILY 08/20/22 11/26/22 Previous Rx's Medication Instructions Recorded fluconazole 150 mg tablet 150 mg PO DAILY #1 tab 04/24/23 (Diflucan) cefuroxime axetil 500 mg tablet 500 mg PO Q12H #14 tabs 05/17/23 Allergies Allergy/AdvReac Type Severity Reaction Status Date / Time naproxen Allergy Mild Unknown Verified 05/16/23 23:36 acetaminophen [From Vicodin] Allergy Unknown Itching Verified 05/16/23 23:36 baclofen Allergy Unknown ITCH, Verified 05/16/23 23:36 Dizziness hydrocodone [From Vicodin] Allergy Unknown Itching Verified 05/16/23 23:36 tramadol [TRAMADOL] Allergy Unknown ITCH Verified 05/16/23 23:36 PMFSH Past Medical History Medical History Back pain Carpal tunnel syndrome GERD (gastroesophageal reflux disease) HTN (hypertension) Hyperlipidemia Hypoxemia Muscular dystrophy Numbness and tingling in both hands Opioid use disorder GABRIEL on CPAP Right hip pain Scoliosis Tobacco use disorder WPW (Uqonr-Omdbnkweb-Mofbc syndrome) Family History Family History Mother Hypotension Muscular dystrophy Father Heart disease Social History Social History Alcohol intake: current Alcohol intake frequency: does not drink Patient Tobacco Use Status: Current everyday Tobacco user Cigarette Packs Per Day: 1 Years Smoked: 20 e-Cigarette/Vaping Use: Never Used Substance Use Type: Marijuana Course Course Course Narrative: This is an RME: Additional HPI, ROS, PE not included below will be deferred to primary provider. This is [id number], with a hx of MS, HTN, GABRIEL, WPW, GERD, presenting to the emergency department with a complaint of chest pain x 3 days. Pt reporting left arm pain and numbness. Father had many heart attacks before the age of 40. Patient pale, diaphoretic, appears unwell. Will to charge nurse who will bring patient back LUBA Plan: EKG, labs Discharge Plan Discharge Prescriptions: No Action fluconazole [Diflucan] 150 mg tablet 150 mg PO DAILY Qty: 1 0RF Rx Instructions: take in 10 days cefuroxime axetil 500 mg tablet 500 mg PO Q12H Qty: 14 0RF lisinopril 20 mg tablet 20 mg PO DAILY albuterol sulfate 90 mcg/actuation HFA aerosol inhaler 0 mcg inhalation
--- NOTE | 2023-07-31 15:14 | ECG_ITS ---
Test Reason : CHEST PAIN Blood Pressure : / mmHG Vent. Rate : 095 BPM Atrial Rate : 095 BPM P-R Int : 140 ms QRS Dur : 070 ms QT Int : 344 ms P-R-T Axes : 063 020 -02 degrees QTc Int : 432 ms Normal sinus rhythm Anterior infarct , age undetermined Abnormal ECG When compared with ECG of 24-AUG-2008 19:38, Vncjv-[id number]-[id number] is no longer Present Referred By: Sheila Galloway Electronically Signed By:TAWANA REYES MD
--- NOTE | 2023-07-31 15:38 | ED_ITS ---
HPI - Chest Pain General Chief Complaint: Chest Pain Stated Complaint: Dizzy SOB Time Seen by Provider: 07/31/23 15:25 Source: patient Mode of arrival: ambulatory Limitations: no limitations History of Present Illness HPI narrative: This is a 37 years old male presented to the emergency department with chief complaint of chest pain for about 3 days he is also complaining of shortness of breath. He has been in a lot of stress he states that his brother age 39 of respiratory failure secondary to COPD on June. Chest pain is precordial not exertional he states shows that he has history of GERD the is supposed to have an endoscopy in August complaint: chest pain Onset (ago): day(s) (3) Timing of current episode: constant Onset: during rest Pain location: substernal Relieving factors: nothing Exacerbating factors: nothing Risk Factors Coronary artery disease risk factors: smoking history (Quit smoking 2 months ago), hypertension and family history of CAD before age 50 (Father had an NC before age 50) Thoracic aortic dissection risk factors: none Related Data Home Medications Medication Instructions Recorded Confirmed albuterol sulfate 90 mcg/actuation 0 mcg inhalation 08/20/22 11/26/22 aerosol inhaler lisinopril 20 mg tablet 20 mg PO DAILY 08/20/22 11/26/22 Previous Rx's Medication Instructions Recorded fluconazole 150 mg tablet 150 mg PO DAILY #1 tab 04/24/23 (Diflucan) cefuroxime axetil 500 mg tablet 500 mg PO Q12H #14 tabs 05/17/23 lorazepam 1 mg tablet 1 mg PO BEDTIME PRN anxiety #7 tabs 07/31/23 Allergies Allergy/AdvReac Type Severity Reaction Status Date / Time naproxen Allergy Mild Unknown Verified 05/16/23 23:36 acetaminophen [From Vicodin] Allergy Unknown Itching Verified 05/16/23 23:36 baclofen Allergy Unknown ITCH, Verified 05/16/23 23:36 Dizziness hydrocodone [From Vicodin] Allergy Unknown Itching Verified 05/16/23 23:36 tramadol [TRAMADOL] Allergy Unknown ITCH Verified 05/16/23 23:36 Review of Systems 2 Constitutional: Constitutional: Reports no additional constitutional complaints ENT: Reports system reviewed and no additional complaints, except as documented Cardiovascular: Cardiovascular: Reports chest pain PMFSH Past Medical History Medical History Carpal tunnel syndrome Right hip pain Numbness and tingling in both hands Scoliosis Back pain Hyperlipidemia GERD (gastroesophageal reflux disease) HTN (hypertension) GABRIEL on CPAP Hypoxemia Tobacco use disorder Opioid use disorder WPW (Ubpan-Clququgtb-Hixcw syndrome) Muscular dystrophy Family History Family History Mother Hypotension Muscular dystrophy Father Heart disease Social History Social History Unable to assess alcohol history related to: Unknown Alcohol intake: current Alcohol intake frequency: does not drink Patient Tobacco Use Status: Current everyday Tobacco user Cigarette Packs Per Day: 1 Years Smoked: 20 Smoked in Last 30 Days: No e-Cigarette/Vaping Use: Never Used Use of substances other than those prescribed or required for medical reasons: Unknown Substance Use Type: Marijuana Advance Directives: No Advance Directives Information Provided: No Physical Exam 2 Vital Signs: Vital Signs: Last Vital Signs Temp 98.3 F 07/31/23 20:02 Pulse 78 07/31/23 20:02 Resp 16 07/31/23 20:02 BP 126/75 07/31/23 20:02 Pulse Ox 98 07/31/23 20:02 O2 Del Method Room Air 07/31/23 20:02 BMI result Body Mass Index 40.7 Const: General: cooperative Nutritional Appearance: well nourished O rientation/consciousness: patient oriented x3 Limitations: no limitations HEENT: Head: Yes normal to inspection General nose exam: Normal external nose present Face and sinus: Yes normal facial exam Neck: Neck: Yes normal visual inspection Chest: Chest palpation & inspection: normal inspection of the chest Cardio: Jugular venous distension: no JVD Rate: regular rate Rhythm: r egular rhythm GI: Inspection: Yes normal to inspection Palpation (GI): Soft to palpation, not firm, nontender and no guarding Auscultation: normal bowel sounds Skin: General skin exam: no rashes or lesions noted and elasticity normal R ashes: no rashes Neuro: General: patient oriented x3 Extrem: General: Yes normal to inspection and Yes full ROM Right lower extremity: normal to inspection Course Reevaluation(s) Reevaluation #1: I re-examined the patient at this time delta troponin is fllat, chest x-ray within normal limits a D-dimer negative I think at this point can be discharged home safely. He did ask me for a brief prescription for lorazepam he has a lot of anxiety secondary to the of his brother Time: 21:54 Medications Administered Discontinued Medications Generic Name Dose Route Start Last Admin Trade Name Richarq PRN Reason Stop Dose Admin Lorazepam 1 mg 07/31/23 15:37 07/31/23 15:51 Lorazepam 1 Mg Tablet PO 07/31/23 15:38 1 mg ONCE ONE Administration Medical Decision Making Lab Data 07/31/23 15:46 07/31/23 15:46 Labs: Lab Results 07/31/23 07/31/23 Range/Units 15:46 18:22 WBC 10.6 (4.8-10.8) X10*3/uL RBC 4.86 (4.60-5.80) X10*6/uL Hgb 15.5 (14.0-18.0) g/dl Hct 45.6 (42.0-52.0) % MCV 93.8 (80.0-98.0) fL MCH 31.9 (27.0-33.0) pg MCHC 34.0 (31.0-36.0) g/dl RDW 12.6 (11.0-16.0) % Plt Count 245 (160-400) X10*3/uL MPV 11.4 (9.4-12.4) fL Immature Gran % (Auto) 0.3 (0.0-0.4) % Neut % (Auto) 71.9 (45-73) % Lymph % (Auto) 21.6 (20-40) % [place] % (Auto) 5.5 (2-11) % Eos % (Auto) 0.2 (0-4) % Baso % (Auto) 0.5 (0-2) % Lymph # (Auto) 2.3 (1.2-4.9) X10*3/uL [place] # (Auto) 0.6 (0.1-1.2) X10*3/uL Eos # (Auto) 0.0 (0.0-0.4) X10*3/uL Baso # (Auto) 0.1 (0.0-0.2) X10*3/uL Abs Immat Gran (auto) 0.03 (0.00-0.03) X10*3/uL Absolute Neuts (auto) 7.7 (2.0-8.3) x10*3/uL Absolute Nucleated RBC 0.000 (0.0-0.012) X10*3/uL Nucleated RBC % (auto) 0.0 (0.0-0.2) /100WBC PT 12.2 (11.1-13.3) SEC INR 1.0 (0.9-1.1) APTT 30.5 (26.0-36.4) SEC D-Dimer High Sensitivty < 150 NG/ML Sodium 140 (135-145) mmol/L Potassium 4.0 (3.3-5.1) mmol/L Chloride 104 (96-108) mmol/L Carbon Dioxide 17 L (22-29) mmol/L Anion Gap 23 H (12-20) BUN 8 L (9-16) mg/dL Creatinine 0.58 (0.5-1.4) mg/dL Estim Creat Clear Calc 214.1 Estimated GFR > 60 Random Glucose 117 H (60-115) mg/dL Calcium 10.2 (8.4-10.2) mg/dL Magnesium 2.0 (1.6-2.6) mg/dL Total Bilirubin 1.3 H (0.0-1.0) mg/dL Direct Bilirubin 0.3 (0.0-0.5) mg/dL AST 42 H (5-37) U/L ALT 70 H (0-40) U/L Alkaline Phosphatase 73 (39-117) U/L Troponin I High Sens < 2.7 2.7 (<3.5-35.0) ng/L Total Protein 8.1 H (6.5-8.0) g/dL Albumin 4.5 (3.5-5.0) g/dL Discharge Plan Discharge Clinical Impression: Chest pain Patient Disposition: Home, Self-Care Instructions: Chest Pain (DC) Prescriptions: New lorazepam 1 mg tablet 1 mg PO BEDTIME PRN (Reason: anxiety) Qty: 7 0RF No Action fluconazole [Diflucan] 150 mg tablet 150 mg PO DAILY Qty: 1 0RF Rx Instructions: take in 10 days cefuroxime axetil 500 mg tablet 500 mg PO Q12H Qty: 14 0RF lisinopril 20 mg tablet 20 mg PO DAILY albuterol sulfate 90 mcg/actuation HFA aerosol inhaler 0 mcg inhalation
[2023-07-31 16:23] LABS: Troponin-I High Sensitivity < 2.7 ng/L (<3.5-35.0)
[2023-07-31 16:30] LABS: Alanine Aminotransferase 70 U/L (0-40); Albumin Level 4.5 g/dL (3.5-5.0); Alkaline Phosphatase 73 U/L (39-117); Anion Gap 23 (12-20); Aspartate Amino Transferase 42 U/L (5-37); Bilirubin Direct 0.3 mg/dL (0.0-0.5); Bilirubin Total 1.3 mg/dL (0.0-1.0); Blood Urea Nitrogen 8 mg/dL (9-16); Calcium 10.2 mg/dL (8.4-10.2); Carbon Dioxide 17 mmol/L (22-29); Chloride 104 mmol/L (96-108); Creatinine Clr Calc Pharmacy 214.1; Estimated Glomerular Filt Rate > 60; Glucose Random 117 mg/dL (60-115); Sodium 140 mmol/L (135-145); Total Protein 8.1 g/dL (6.5-8.0)
[2023-07-31 18:54] LABS: Troponin-I High Sensitivity 2.7 ng/L (<3.5-35.0)
[2023-07-31 19:36] VITALS: PULSE 72
--- NOTE | 2023-07-31 19:36 | PC.NURSE ---
I assumedc are of the pt at 1900. Pt is sitting up in bed at this time.Pt stated he feels better now than he did when he came in. Pt is A&Ox4, GCS 15, with warm dry skin. Pt is on the ekg monitor at this time. Waiting for disposition.
[2023-07-31 20:02] VITALS: BP 126/75; PULSE 78; RESP 16; TEMP 36.8; O2SAT 98
--- NOTE | 2023-07-31 20:02 | MHC.EDTECH ---
This tech assumed care of patient at 1900, hourly rounds and vitals completed. Patient is watching TV at this time and call street within reach.
== END 2023-07-31 22:07 | disposition home or self-care (01) ==
PROVIDERS: Physician Assistant Medical; Emergency Provider Emergency Medicine; PCP Internal Medicine
DX: R07.89 Other chest pain (principal); R42 Dizziness and giddiness; R06.02 Shortness of breath; Z87.891 Personal history of nicotine dependence; Z79.899 Other long term (current) drug therapy
CPT/HCPCS: 36415; 71045; 80048; 80076; 83735; 84484; 85025; 85379; 85610; 85730; 93005; 99283; 99285

== ENCOUNTER 2023-09-19 09:06 | Inpatient (IN) | payer OTHER, SELFPAY ==
[2023-09-19] VITALS (8 sets, daily range): BP systolic 132–161; BP diastolic 64–97; PULSE 74–99; RESP 18–22; TEMP 36.6–36.8; O2SAT 94–100; BMI 44.7; BMI 45.6
--- NOTE | ~2023-09-19 | XR_ITS ---
EXAMINATION: XR CHEST 2 VIEW CLINICAL INFORMATION: Chest pain and shortness of breath COMPARISON: 07/31/2023 TECHNIQUE: PA and lateral views of the chest obtained. FINDINGS: Patchy infiltrate is evident in the lingula, new since the prior examination. The right lung is clear. There are no pleural effusions. The cardiomediastinal silhouette is normal. XR/XR chest 2V IMPRESSION: Lingular pneumonia. Follow-up is recommended to confirm clearing.
--- NOTE | 2023-09-19 11:03 | ECG_ITS ---
Test Reason : chest pain, SOB Blood Pressure : / mmHG Vent. Rate : 074 BPM Atrial Rate : 074 BPM P-R Int : 142 ms QRS Dur : 080 ms QT Int : 404 ms P-R-T Axes : 063 008 -16 degrees QTc Int : 448 ms Normal sinus rhythm with sinus arrhythmia Low voltage QRS Possible Inferior infarct , age undetermined Abnormal ECG When compared with ECG of 31-JUL-2023 15:18, No significant change was found Referred By: Sheila Galloway Electronically Signed By:VLADIMIR GOINS MD
[2023-09-19] MEDS: Albuterol Sulfate 2.5 MG, Albuterol/Iprat 2.5/0.5MG 3 ML 3 ML INHALE (11:21)
[2023-09-19 11:33] LABS: Influenza A PCR NEGATIVE (Negative); Influenza B PCR NEGATIVE (Negative); Resp Syncy Virus RNA Qual PCR NEGATIVE (Negative); SARS COV2 PCR INHOUSE NEGATIVE (Negative)
[2023-09-19 12:39] LABS: MANUAL DIFF FLAG NO
[2023-09-19 12:56] LABS: Basophils Absolute Auto 0.1 X10*3/uL (0.0-0.2); Basophils Percent Auto 0.5 % (0-2); Eosinophils Absolute Auto 0.1 X10*3/uL (0.0-0.4); Eosinophils Percent Auto 0.9 % (0-4); Hematocrit 46.9 % (42.0-52.0); Hemoglobin 15.3 g/dl (14.0-18.0); Imm Gran Abs Auto 0.03 X10*3/uL (0.00-0.03); Imm Gran Pct Auto 0.3 % (0.0-0.4); Lymphocytes Absolute Auto 3.6 X10*3/uL (1.2-4.9); Lymphocytes Percent Auto 34.1 % (20-40); Mean Corpuscular HGB Conc 32.6 g/dl (31.0-36.0); Mean Corpuscular Hemoglobin 31.3 pg (27.0-33.0); Mean Corpuscular Volume 95.9 fL (80.0-98.0); Mean Platelet Volume 11.4 fL (9.4-12.4); Monocytes Absolute Auto 0.8 X10*3/uL (0.1-1.2); Monocytes Percent Auto 7.9 % (2-11); Neutrophils Percent Auto 56.3 % (45-73); Platelet Count 246 X10*3/uL (160-400); Red Blood Count 4.89 X10*6/uL (4.60-5.80); White Blood Count 10.6 X10*3/uL (4.8-10.8)
[2023-09-19 12:58] LABS: Lactic Acid 3.4 mmol/L (0.5-2.0)
[2023-09-19 13:00] LABS: Alanine Aminotransferase 67 U/L (0-40); Albumin Level 4.1 g/dL (3.5-5.0); Alkaline Phosphatase 74 U/L (39-117); Anion Gap 14 (12-20); Aspartate Amino Transferase 35 U/L (5-37); Bilirubin Direct 0.3 mg/dL (0.0-0.5); Blood Urea Nitrogen 17 mg/dL (9-16); Calcium 9.2 mg/dL (8.4-10.2); Carbon Dioxide 28 mmol/L (22-29); Chloride 103 mmol/L (96-108); Creatinine Clr Calc Pharmacy 201.2; Estimated Glomerular Filt Rate > 60; Glucose Random 148 mg/dL (60-115); Potassium 3.8 mmol/L (3.3-5.1); Sodium 141 mmol/L (135-145); Total Protein 7.2 g/dL (6.5-8.0)
[2023-09-19 13:03] LABS: B Type Natriuretic Peptide < 10 pg/mL (<100)
--- NOTE | 2023-09-19 13:03 | ED.URI ---
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 He was seen by his primary care physician who prescribed him doxycycline and prednisone. He finish the entire course of doxycycline, states that several days into this prescription he started to feel better however over the last several days he has felt worse. He has been unable sleep as he has had some pressure in his chest as well as a cold sensation throughout his chest. He states that he has been unable to sleep lying down as he has had worsening shortness of breath. He is coughing up yellow mucus. Also endorsing subjective fevers and chills. No abdominal pain, nausea, vomiting or diarrhea. He is a former smoker, quit in March. Of note, he has a history of opiate use disorder, denies IV drug use, has not used opiates in over 10 years. Other complaints or concerns at this time. MD elicited complaint: fever and cough Pertinent past history: immunosuppression (Muscular dystrophy) Onset (ago): week(s) Consistency: constant and progressively worsening Severity: moderate Description of mucous: yellow Able to tolerate fluids by mouth: Yes Exacerbating factors: nothing Relieving factors: nothing Associated symptoms: denies other symptoms Treatments prior to arrival: none Related Data Home Medications Medication Instructions Recorded Confirmed albuterol sulfate 90 mcg/actuation 90 mcg inhalation Q4H PRN 08/20/22 09/19/23 aerosol inhaler Shortness Of Breath lisinopril 20 mg tablet 20 mg PO DAILY 08/20/22 09/19/23 doxycycline monohydrate 100 mg 100 mg PO BID 09/19/23 09/19/23 tablet gabapentin 100 mg capsule 100 mg PO BID 09/19/23 09/19/23 prednisone 20 mg tablet 40 mg PO DAILY 09/19/23 09/19/23 sertraline 50 mg tablet 50 mg PO DAILY 09/19/23 09/19/23 Previous Rx's Medication Instructions Recorded lorazepam 1 mg tablet 1 mg PO BEDTIME PRN anxiety #7 tabs 07/31/23 Allergies Allergy/AdvReac Type Severity Reaction Status Date / Time naproxen Allergy Mild Unknown Verified 09/19/23 09:23 acetaminophen [From Vicodin] Allergy Unknown Itching Verified 09/19/23 09:23 baclofen Allergy Unknown ITCH, Verified 05/16/23 23:36 Dizziness hydrocodone [From Vicodin] Allergy Unknown Itching Verified 09/19/23 09:23 tramadol [TRAMADOL] Allergy Unknown ITCH Verified 09/19/23 09:23 Review of Systems Review of Systems: Yes all other systems are reviewed and are negative Constitutional: Constitutional: Reports as per [facility] Past Medical History Attestation statement: The following information was validated with the patient. Medical History Carpal tunnel syndrome Right hip pain Numbness and tingling in both hands Scoliosis Back pain Hyperlipidemia GERD (gastroesophageal reflux disease) HTN (hypertension) GABRIEL on CPAP Hypoxemia Tobacco use disorder Opioid use disorder WPW (Chcvz-Hevoftgnx-Inikz syndrome) Muscular dystrophy Family History Family History Mother Hypotension Muscular dystrophy Father Heart disease Social History Social History Unable to assess alcohol history related to: Unknown Alcohol intake: current Alcohol intake frequency: does not drink Patient Tobacco Use Status: Current everyday Tobacco user Cigarette Packs Per Day: 1 Years Smoked: 20 Smoked in Last 30 Days: No e-Cigarette/Vaping Use: Never Used Substance Use Type: Marijuana Advance Directives: No Physical Exam Vital Signs: Vital Signs: Last Vital Signs Temp 98.2 F 09/19/23 16:34 Pulse 80 09/19/23 16:34 Resp 20 09/19/23 16:34 BP 136/73 09/19/23 16:34 Pulse Ox 96 09/19/23 16:34 O2 Del Method Room Air 09/19/23 16:34 BMI result Body Mass Index 44.7 Const: General: cooperative, comfortable and no acute distress Orientation/consciousness: patient oriented x3 Limitations: no limitations HEENT: Head: Yes normal to inspection, Yes normocephalic and Yes atraumatic Ears: hearing grossly normal bilaterally and TM's normal bilaterally General nose exam: Normal external nose present Face and sinus: Yes normal facial exam Mouth: Normal oral and palatal mucosa present, oropharynx normal and moist mucous membranes Throat: Yes posterior oropharynx normal, Yes tonsils normal and Yes uvula midline Eyes: General: appearance normal, both eyes and all related structures Eyelids: Yes eyelids normal Conjunctivae: conjunctivae normal Sclerae: sclerae normal Pupils: Equal, round and reactive pupils present EOM: EOMs intact bilaterally Neck: Neck: Yes normal visual inspection, Yes full ROM and Yes no lymphadenopathy Lymphatic: no lymphadenopathy noted Chest: Chest palpation & inspection: normal inspection of the chest Resp: Other: Coarse lung sounds heard throughout, expiratory wheezes heard in the upper lungs Effort & Inspection: normal respiratory effort and able to speak in complete sentences Cardio: Rate: regular rate Rhythm: regular rhythm Heart sounds: S1 normal heart sound present and S2 normal heart sound present GI: Inspection: Yes normal to inspection Skin: General skin exam: no rashes or lesions noted Trauma: no lacerations or abrasions Wounds: no wounds Neuro: General: patient oriented x3 and moves all extremities Cranial nerves: Yes Equal, round and reactive pupils present Extrem: Other: No peripheral edema noted. No calf tenderness. General: Yes normal to inspection Right upper extremity: normal to inspection Left upper extremity: normal to inspection Right lower extremity: normal to inspection Left lower extremity: normal to inspection Course Reevaluation(s) Reevaluation #1: Patient feeling better after receiving updraft however still feeling short of breath, with chest tightness. Lungs still coarse. Chest x-ray returns, revealing lingular pneumonia. Blood work returns, no leukocytosis however patient has a lactic acid at 3.4. Given known infection of pneumonia, will treat with IV fluid bolus, ceftriaxone and azithromycin. This was discussed with my attending physician Dr. Vasquez, who agrees that given patient's clinical appearance upon arrival and failure of outpatient antibiotics, will attempt to admit for further management and care of pneumonia. Nurse attempting IV at bedside at this time. Time: 13:00 Reevaluation #2: It is brought to my attention that the antibiotics were hung prior to obtaining the blood cultures. The antibiotics were stopped and blood cultures were taken on opposite arm. I discussed hospital admission with patient who is agreeable. Discussed case with hospitalist, Iram Bass PA-C. Time: 14:48 Reevaluation #3: Patient was seen by hospitalist and transfer of care was initiated. Medications Administered Generic Name Dose Route Start Last Admin Trade Name Freq PRN Reason Stop Dose Admin Enoxaparin Sodium 40 mg 09/19/23 19:30 09/19/23 19:47 Enoxaparin Sodium 40 Mg/0.4 Ml Syringe SUBCUT 40 mg Q24H FABIO Administration Gabapentin 100 mg 09/19/23 21:00 09/19/23 19:47 Gabapentin 100 Mg Capsule PO 100 mg BID FABIO Administration Discontinued Medications Generic Name Dose Route Start Last Admin Trade Name Freq PRN Reason Stop Dose Admin Albuterol/Ipratropium 3 ml 09/19/23 18:15 09/19/23 18:21 Albuterol/Iprat 2.5/0.5mg 3 Ml Ampul.Neb INHALE Not Given Q4H FABIO Albuterol Sulfate 2.5 mg/ 0 mg 09/19/23 11:18 09/19/23 11:21 Albuterol/Ipratropium 3 ml INHALE 09/19/23 11:19 1 dose ONCE ONE Administration Sodium Chloride 3,885 mls @ 3,885 mls/hr 09/19/23 12:59 09/19/23 16:42 Ns 30 ml/kg infuse over 1 hr (3885 ml) 09/19/23 13:58 Infused IV Infusion .Q1H STA Azithromycin 500 mg/ Sodium 250 mls @ 125 mls/hr 09/19/23 13:17 09/19/23 16:31 Chloride IV 09/19/23 15:16 Infused ONCE ONE Infusion Ceftriaxone Sodium 1 gm/ 50 mls @ 100 mls/hr 09/19/23 13:17 09/19/23 14:18 Sodium Chloride IV 09/19/23 13:46 Infused ONCE ONE Infusion Lorazepam 0.5 mg 09/19/23 13:53 09/19/23 14:57 Lorazepam 0.5 Mg Tablet PO 09/19/23 13:54 0.5 mg ONCE ONE Administration Medical Decision Making Medical Decision Making [facility] Narrative: 37-year-old male presenting to the emergency department for evaluation cough and wheeze the last month, worsening over the last week. He was seen by primary care physician last week and was started on a course of doxycycline and prednisone. He states initially he felt as though his symptoms were improving however, symptoms worsened over the last several days. He has been on no able to lie flat secondary to his shortness of breath. Upon my initial assessment, patient appear to be in slight respiratory distress, leaning forward, unable to lie backwards secondary to shortness of breath. Respiratory therapy was called for treatment. Plan: Labs, EKG, chest x-ray, viral swabs, lactic Differential Diagnosis Differential Diagnoses: The differential diagnosis associated with the presentation includes Pneumonia, ACS, upper respiratory infection, COVID Admission/Observation Consideration of admission/observation: Escalation of care including admission/observation considered Escalation of care including admission and observation was considered given failure of outpatient treatment as well as immunosuppression. Lab Data MDM Lab Attestation statement: I reviewed the patient's lab results. Patient has no leukocytosis, stable H&H. BUN 17, random glucose 148, ALT mildly elevated at 67, all other liver enzymes within normal limits. Viral swabs negative. 09/19/23 12:34 09/19/23 12:34 Labs: Lab Results 09/19/23 09/19/23 09/19/23 Range/Units 10:49 12:34 16:55 WBC 10.6 (4.8-10.8) X10*3/uL RBC 4.89 (4.60-5.80) X10*6/uL Hgb 15.3 (14.0-18.0) g/dl Hct 46.9 (42.0-52.0) % MCV 95.9 (80.0-98.0) fL MCH 31.3 (27.0-33.0) pg MCHC 32.6 (31.0-36.0) g/dl RDW 13.0 (11.0-16.0) % Plt Count 246 (160-400) X10*3/uL MPV 11.4 (9.4-12.4) fL Immature Gran % (Auto) 0.3 (0.0-0.4) % Neut % (Auto) 56.3 (45-73) % Lymph % (Auto) 34.1 (20-40) % [place] % (Auto) 7.9 (2-11) % Eos % (Auto) 0.9 (0-4) % Baso % (Auto) 0.5 (0-2) % Lymph # (Auto) 3.6 (1.2-4.9) X10*3/uL [place] # (Auto) 0.8 (0.1-1.2) X10*3/uL Eos # (Auto) 0.1 (0.0-0.4) X10*3/uL Baso # (Auto) 0.1 (0.0-0.2) X10*3/uL Abs Immat Gran (auto) 0.03 (0.00-0.03) X10*3/uL Absolute Neuts (auto) 6.0 (2.0-8.3) x10*3/uL Absolute Nucleated RBC 0.000 (0.0-0.012) X10*3/uL Nucleated RBC % (auto) 0.0 (0.0-0.2) /100WBC Sodium 141 (135-145) mmol/L Potassium 3.8 (3.3-5.1) mmol/L Chloride 103 (96-108) mmol/L Carbon Dioxide 28 (22-29) mmol/L Anion Gap 14 (12-20) BUN 17 H (9-16) mg/dL Creatinine 0.65 (0.5-1.4) mg/dL Estim Creat Clear Calc 201.2 Estimated GFR > 60 Random Glucose 148 H (60-115) mg/dL Lactic Acid 3.4 H* (0.5-2.0) mmol/L Lactic Acid F/U @ 2Hr 2.7 H* (0.5-2.0) mmol/L Calcium 9.2 D (8.4-10.2) mg/dL Total Bilirubin 1.0 (0.0-1.0) mg/dL Direct Bilirubin 0.3 (0.0-0.5) mg/dL AST 35 (5-37) U/L ALT 67 H (0-40) U/L Alkaline Phosphatase 74 (39-117) U/L Troponin I High Sens < 2.7 (<3.5-35.0) ng/L B-Natriuretic Peptide < 10 (<100) pg/mL Total Protein 7.2 (6.5-8.0) g/dL Albumin 4.1 (3.5-5.0) g/dL Influenza Type A (PCR) NEGATIVE (Negative) Influenza Type B (PCR) NEGATIVE (Negative) RSV RNA Qual (PCR) NEGATIVE (Negative) SARS-CoV-2 RNA (RT-PCR) NEGATIVE (Negative) Independent Interpretation I performed an independent interpretation of an: EKG Interpretation: EKG, normal sinus rhythm with sinus arrhythmia at a ventricular rate of 74 beats per minute, HI interval 142 Similar appearing EKG from previous EKG performed on July 31, 2023. Radiology Impression Discussion of test interpretation with radiology: I have reviewed the radiologist's reading. Radiologist Impression: EXAMINATION: XR CHEST 2 VIEW CLINICAL INFORMATION: Chest pain and shortness of breath COMPARISON: 07/31/2023 TECHNIQUE: PA and lateral views of the chest obtained. FINDINGS: Patchy infiltrate is evident in the lingula, new since the prior examination. The right lung is clear. There are no pleural effusions. The cardiomediastinal silhouette is normal. XR/XR chest 2V IMPRESSION: Lingular pneumonia. Follow-up is recommended to confirm clearing. Dictated By: Sandip Marrero MD Critical Care Time Critical Care Time Critical Care Time: Yes Total Critical Care Time: 40 Attestation: I have personally provided critical care time exclusive of time spent on separately billable procedures. Time includes review of lab data, radiology results, discussion with consultants, and monitoring for potential decompensation. Intervention performed as documented. Discharge Plan Discharge Clinical Impression: Lingular pneumonia Patient Disposition: Admitted As Inpatient
[2023-09-19 13:06] LABS: Troponin-I High Sensitivity < 2.7 ng/L (<3.5-35.0)
[2023-09-19] MEDS: cefTRIAXone sodium 1 GM in 0.9 % Sodium Chloride 50 ML IV (13:29)
[2023-09-19] MEDS: Azithromycin 500 MG in 0.9 % Sodium Chloride 250 ML 125 MG IV (14:17)
[2023-09-19 14:38] LABS: Reflex Lactate? Lactic Acid Added
[2023-09-19] MEDS: LORazepam 0.5 MG TABLET PO (14:57)
--- NOTE | 2023-09-19 16:43 | PC.NURSE ---
2L of IV infused, was slower than normal due to the position of the IV but fluid finally was all infused. Per PA, wait on the other 2 Liters until Lactic Acid comes back. Tech will draw lab soon.
[2023-09-19 17:21] LABS: ~Lactic Acid-LAB USE ONLY 2.7 mmol/L (0.5-2.0)
--- NOTE | 2023-09-19 17:28 | PHA.MEDREC ---
Pharmacy Consult ? Medication Reconciliation Pharmacy has completed the medication reconciliation. Patient states he no longer takes Buspar or Hydroxyzine due to unwanted side affects such as shaking
--- NOTE | 2023-09-19 18:01 | PC.NURSE ---
3rd liter of fluid was hung at approx 5pm
--- NOTE | 2023-09-19 18:30 | P.HPHOSP_ITS ---
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 In the ED pt was Labs were significant for CXR showed CT? EKG demonstrated Pt was treated with Pt will be admitted to the hospital [facility] Medical History Carpal tunnel syndrome Right hip pain Numbness and tingling in both hands Scoliosis Back pain Hyperlipidemia GERD (gastroesophageal reflux disease) HTN (hypertension) GABRIEL on CPAP Hypoxemia Tobacco use disorder Opioid use disorder WPW (Uzvhm-Hvbzrnrsj-Stpra syndrome) Muscular dystrophy Family History Mother Hypotension Muscular dystrophy Father Heart disease Social History Unable to assess alcohol history related to: Unknown Alcohol intake: current Alcohol intake frequency: does not drink Patient Tobacco Use Status: Current everyday Tobacco user Cigarette Packs Per Day: 1 Years Smoked: 20 Smoked in Last 30 Days: No e-Cigarette/Vaping Use: Never Used Substance Use Type: Marijuana Advance Directives: No Meds Allergies Allergy/AdvReac Type Severity Reaction Status Date / Time naproxen Allergy Mild Unknown Verified 09/19/23 09:23 acetaminophen [From Vicodin] Allergy Unknown Itching Verified 09/19/23 09:23 baclofen Allergy Unknown ITCH, Verified 05/16/23 23:36 Dizziness hydrocodone [From Vicodin] Allergy Unknown Itching Verified 09/19/23 09:23 tramadol [TRAMADOL] Allergy Unknown ITCH Verified 09/19/23 09:23 Active Medications: Current Medications Albuterol/Ipratropium (Albuterol/Iprat 2.5/0.5mg 3 Ml Ampul.Neb) 3 ml INHALE RQ4H FABIO Azithromycin 500 mg/ Sodium (Chloride) 250 mls @ 125 mls/hr IV Q24H FABIO Ceftriaxone Sodium 1 gm/ (Sodium Chloride) 50 mls @ 100 mls/hr IV Q24H FABIO Sodium Chloride (0.9 % Sodium Chloride Flush 3 Ml Syringe) 3 ml IVFLUSH QSHIFT FABIO Home Medications Medication Instructions Recorded Confirmed Last Taken Type albuterol sulfate 90 mcg/actuation 90 mcg inhalation Q4H PRN 08/20/22 09/19/23 Unknown History aerosol inhaler Shortness Of Breath lisinopril 20 mg tablet 20 mg PO DAILY 08/20/22 09/19/23 Unknown History doxycycline monohydrate 100 mg 100 mg PO BID 09/19/23 09/19/23 Unknown History tablet gabapentin 100 mg capsule 100 mg PO BID 09/19/23 09/19/23 Unknown History prednisone 20 mg tablet 40 mg PO DAILY 09/19/23 09/19/23 Unknown History sertraline 50 mg tablet 50 mg PO DAILY 09/19/23 09/19/23 Unknown History Physical Exam 2 Vital Signs and Narrative: Vital Signs: Last Vital Signs Temp 98.2 F 09/19/23 16:34 Pulse 80 09/19/23 16:34 Resp 20 09/19/23 16:34 BP 136/73 09/19/23 16:34 Pulse Ox 96 09/19/23 16:34 O2 Del Method Room Air 09/19/23 16:34 BMI result Body Mass Index 44.7 Results Labs 09/19/23 12:34 09/19/23 12:34 Labs: Laboratory Results - last 24 hr 09/19/23 09/19/23 09/19/23 10:49 12:34 16:55 MCV 95.9 MCH 31.3 MCHC 32.6 RDW 13.0 Plt Count 246 MPV 11.4 Immature Gran % (Auto) 0.3 Neut % (Auto) 56.3 Lymph % (Auto) 34.1 Miller % (Auto) 7.9 Eos % (Auto) 0.9 Baso % (Auto) 0.5 Lymph # (Auto) 3.6 Miller # (Auto) 0.8 Eos # (Auto) 0.1 Baso # (Auto) 0.1 Abs Immat Gran (auto) 0.03 Absolute Neuts (auto) 6.0 Absolute Nucleated RBC 0.000 Nucleated RBC % (auto) 0.0 Anion Gap 14 Estim Creat Clear Calc 201.2 Estimated GFR > 60 Random Glucose 148 H Lactic Acid 3.4 H* Lactic Acid F/U @ 2Hr 2.7 H* Calcium 9.2 D Total Bilirubin 1.0 Direct Bilirubin 0.3 AST 35 ALT 67 H Alkaline Phosphatase 74 B-Natriuretic Peptide < 10 Total Protein 7.2 Albumin 4.1 Influenza Type A (PCR) NEGATIVE Influenza Type B (PCR) NEGATIVE RSV RNA Qual (PCR) NEGATIVE SARS-CoV-2 RNA (RT-PCR) NEGATIVE Imaging Radiologist's Impressions: Impressions Chest X-Ray 09/19/23 11:20 IMPRESSION: Lingular pneumonia. Follow-up is recommended to confirm clearing. Quality VTE VTE Risk Level:: Medical - moderate - high VTE Device Contraindication: N/A - Device Ordered VTE Drug Contraindication: N/A - Med Ordered
[2023-09-19 18:37] LABS: Cancel Lactic Acid Canceled
--- NOTE | 2023-09-19 18:47 | PC.NURSE ---
Per Dr Eubanks he does not want the fourth liter of fluid hung. Per pharmacy ( [facility]), IV fluid cannot be discontinued as I had already done so.
--- NOTE | 2023-09-19 19:05 | P.HPHOSP_ITS ---
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 he c/o sob and He is coughing up yellow mucus. Also endorsing subjective fevers and chills. No abdominal pain, nausea, vomiting or diarrhea. He is a former smoker, quit in March. Of note, he has a history of opiate use disorder, denies IV drug use, has not used opiates in over 10 years. Other complaints or concerns at this time. Lab imaging EKG reviewed: CBC seems fine BMP fine Has lactic acidosis 3.4-2.7 XR/XR chest 2V IMPRESSION: Lingular pneumonia. Follow-up is recommended to confirm clearing. Patient received nebs, antibiotics in the ED: Requested admission for pneumonia. Review of Systems 2 Review of Systems: As above. COUNTS INCLUDE 234 BEDS AT THE [facility] Medical History Carpal tunnel syndrome Right hip pain Numbness and tingling in both hands Scoliosis Back pain Hyperlipidemia GERD (gastroesophageal reflux disease) HTN (hypertension) GABRIEL on CPAP Hypoxemia Tobacco use disorder Opioid use disorder WPW (Baaem-Hwruhtyst-Cmjta syndrome) Muscular dystrophy Family History Mother Hypotension Muscular dystrophy Father Heart disease Social History Household Members: Family Housing: House Do you presently have visiting nurse or other home services: No Unable to assess alcohol history related to: Unknown Alcohol intake: current Alcohol intake frequency: does not drink Patient Tobacco Use Status: Former Tobacco user Quit Date: 03/21/2023 Cigarette Packs Per Day: 1 Years Smoked: 20 Smoked in Last 30 Days: No e-Cigarette/Vaping Use: Never Used Use of substances other than those prescribed or required for medical reasons: No Substance Use Type: Marijuana Currently Displaying Signs/Symptoms of Drug Intoxication Withdrawal: No Have you been hit, kicked, punched, or otherwise hurt by someone within the past year? If so, by whom?: No Do you feel safe in your current relationship?: Yes Is there a partner from a previous relationship who is making you feel unsafe now?: No Are you made to feel afraid or neglected: No Advance Directives: No Do you have thoughts of harming others: None Do you have a plan to hurt others: No Plan Recently lost weight without trying: No Nutrition Risks: No Nutritional Risk Meds Allergies Allergy/AdvReac Type Severity Reaction Status Date / Time naproxen Allergy Mild Unknown Verified 09/19/23 09:23 acetaminophen [From Vicodin] Allergy Unknown Itching Verified 09/19/23 09:23 baclofen Allergy Unknown ITCH, Verified 05/16/23 23:36 Dizziness hydrocodone [From Vicodin] Allergy Unknown Itching Verified 09/19/23 09:23 tramadol [TRAMADOL] Allergy Unknown ITCH Verified 09/19/23 09:23 Active Medications: Current Medications Albuterol/Ipratropium (Albuterol/Iprat 2.5/0.5mg 3 Ml Ampul.Neb) 3 ml INHALE RQ4H [facility] Azithromycin 500 mg/ Sodium (Chloride) 250 mls @ 125 mls/hr IV Q24H [facility] Ceftriaxone Sodium 1 gm/ (Sodium Chloride) 50 mls @ 100 mls/hr IV Q24H [facility] Sodium Chloride (0.9 % Sodium Chloride Flush 3 Ml Syringe) 3 ml IVFLUSH QSHIFT [facility] Home Medications Medication Instructions Recorded Confirmed Last Taken Type albuterol sulfate 90 mcg/actuation 90 mcg inhalation Q4H PRN 08/20/22 09/19/23 Unknown History aerosol inhaler Shortness Of Breath lisinopril 20 mg tablet 20 mg PO DAILY 08/20/22 09/19/23 Unknown History doxycycline monohydrate 100 mg 100 mg PO BID 09/19/23 09/19/23 Unknown History tablet gabapentin 100 mg capsule 100 mg PO BID 09/19/23 09/19/23 Unknown History prednisone 20 mg tablet 40 mg PO DAILY 09/19/23 09/19/23 Unknown History sertraline 50 mg tablet 50 mg PO DAILY 09/19/23 09/19/23 Unknown History ropinirole 1 mg tablet 1 mg PO BEDTIME 09/20/23 09/20/23 09/18/23 23:55 History Physical Exam 2 Vital Signs and Narrative: Vital Signs: Last Vital Signs Temp 98.2 F 09/19/23 16:34 Pulse 80 09/19/23 16:34 Resp 20 09/19/23 16:34 BP 136/73 09/19/23 16:34 Pulse Ox 96 09/19/23 16:34 O2 Del Method Room Air 09/19/23 16:34 BMI result Body Mass Index 44.7 Appearance: Alert.? Oriented X3.? sob Eyes: Pupils equal, round and reactive to light.? Sclera nonicteric.? ENT: Pharynx normal.? Moist mucous membranes. cvs: rrr, [id number] , no murmur res: air entry slightly diminshed at bases ,has faint wheezing left>right abd: no rebound or guarding ,nt, bs present. ext pulses present , no cyanosis. neuro: axo3 , nonfocal. Results Labs 09/19/23 12:34 09/19/23 12:34 Labs: Laboratory Results - last 24 hr 09/19/23 09/19/23 09/19/23 10:49 12:34 16:55 MCV 95.9 MCH 31.3 MCHC 32.6 RDW 13.0 Plt Count 246 MPV 11.4 Immature Gran % (Auto) 0.3 Neut % (Auto) 56.3 Lymph % (Auto) 34.1 [place] % (Auto) 7.9 Eos % (Auto) 0.9 Baso % (Auto) 0.5 Lymph # (Auto) 3.6 [place] # (Auto) 0.8 Eos # (Auto) 0.1 Baso # (Auto) 0.1 Abs Immat Gran (auto) 0.03 Absolute Neuts (auto) 6.0 Absolute Nucleated RBC 0.000 Nucleated RBC % (auto) 0.0 Anion Gap 14 Estim Creat Clear Calc 201.2 Estimated GFR > 60 Random Glucose 148 H Lactic Acid 3.4 H* Lactic Acid F/U @ 2Hr 2.7 H* Calcium 9.2 D Total Bilirubin 1.0 Direct Bilirubin 0.3 AST 35 ALT 67 H Alkaline Phosphatase 74 B-Natriuretic Peptide < 10 Total Protein 7.2 Albumin 4.1 Influenza Type A (PCR) NEGATIVE Influenza Type B (PCR) NEGATIVE RSV RNA Qual (PCR) NEGATIVE SARS-CoV-2 RNA (RT-PCR) NEGATIVE Imaging Radiologist's Impressions: Impressions Chest X-Ray 09/19/23 11:20 IMPRESSION: Lingular pneumonia. Follow-up is recommended to confirm clearing. 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 CAP: Chest x-ray shows pneumonia: Patient seen event short of breath, productive cough patient also failed outpatient antibiotic therapy, also has history of muscular dystrophy. Elevated lactic acid likely due to nebs use. Not septic Blood cultures sent. Will continue nebs, antibiotics. Muscular dystrophy: Supportive care. Depression: Continue home medications Hypertension:: Stable, continue home lisinopril. DVT prophylaxis: SubQ Lovenox. Patient will benefit from 48-72 hour hospital admission care: Considering patient failed outpatient antibiotic therapy, still significant symptomatic, needs IV antibiotics, and respiratory status monitoring. Quality Stroke Does the patient have a stroke diagnosis?: No VTE Prior VTE?: No VTE Risk Level:: Medical - moderate - high VTE Device Contraindication: N/A - Device Ordered VTE Drug Contraindication: N/A - Med Ordered
[2023-09-19 19:21] LABS: Cancel Lactic Acid Canceled
[2023-09-19] MEDS: Enoxaparin Sodium 40 MG/0.4 ML SYRINGE SUBCUT (19:47)
[2023-09-19] MEDS: Gabapentin 100 MG CAPSULE PO (19:47)
[2023-09-19] MEDS: Albuterol/Iprat 2.5/0.5MG 3 ML AMPUL.NEB INHALE ×2 (20:12→23:22)
[2023-09-20] VITALS (9 sets, daily range): BP systolic 114–133; BP diastolic 56–73; PULSE 69–91; RESP 17–20; TEMP 36.2–37.1; O2SAT 93–97
[2023-09-20] MEDS: 0.9 % Sodium Chloride Flush 3 ML SYRINGE IVFLUSH ×3 (00:24→20:36)
[2023-09-20] MEDS: LORazepam 1 MG TABLET PO ×2 (00:24→23:29)
[2023-09-20] MEDS: rOPINIRole HCL 1 MG TABLET PO ×2 (00:24→23:28)
[2023-09-20] MEDS: Gabapentin 100 MG CAPSULE PO ×2 (08:00→23:28)
[2023-09-20] MEDS: Sertraline HCL 50 MG TABLET PO (08:00)
[2023-09-20] MEDS: lisinopriL 20 MG TABLET PO (08:00)
[2023-09-20] MEDS: Ibuprofen 400 MG TABLET PO (08:22)
[2023-09-20] MEDS: Albuterol/Iprat 2.5/0.5MG 3 ML AMPUL.NEB INHALE ×2 (08:50→11:46)
[2023-09-20] MEDS: cefTRIAXone sodium 1 GM in 0.9 % Sodium Chloride 50 ML IV (12:58)
[2023-09-20] MEDS: Azithromycin 500 MG in 0.9 % Sodium Chloride 250 ML 125 MG IV (13:31)
--- NOTE | 2023-09-20 16:45 | P.CDIM_ITS ---
PROVIDER RESPONSE TEXT: To clarify, the appropriate diagnosis supported by the clinical indicators: Acute QUERY TEXT: PHYSICIAN'S DOCUMENTATION REQUEST Date of Query: 09/20/2023 09:13 AM EST Patient Name: Baron Pickering Admit Date: 09/19/2023 Dear Sunita Eubanks, A review of the medical record indicates additional documentation may be needed. Please review below and update the documentation accordingly. Clinical Indicators: H&P: Plan - Lactic acidosis 3.4-2.7 elevated lactic acid likely due to nebs use. Not septic. Clarify which of the following accurately represents the acuity of the Lactic acidosis: Acute Acute on chronic Other (explain) Clinically unable to determine (explain) Thank you, Tere Wise, CCS, CDIS Use of terms such as suspected, likely, concern for, or probable (associated with a specific diagnosi s that is being evaluated, monitored, or treated as if it exists) are acceptable and can be coded in the inpatient se tting, when documented at the time of discharge. Please use your independent medical judgment in providing your response. THIS QUERY IS PART OF THE PERMANENT MEDICAL RECORD
--- NOTE | 2023-09-20 16:57 | P.CDIM_ITS ---
PROVIDER RESPONSE TEXT: To clarify, the appropriate diagnosis supported by the clinical indicators: Obesity Due to excess calories QUERY TEXT: PHYSICIAN'S DOCUMENTATION REQUEST Date of Query: 09/20/2023 10:20 AM EST Patient Name: Baron Pickering Admit Date: 09/19/2023 Dear Sunita Eubanks, A review of the medical record indicates additional documentation may be needed. Please review below and update the documentation accordingly. Clinical Indicators: Nursing notes Height and Weight: BMI 45.6 132kg Extreme obesity Class III If possible, please provide an associated diagnosis related to the abnormal BMI, such as: Obesity Due to excess calories Obesity Due to other cause Specify the other cause Severe or Morbid Obesity With alveolar hypoventilation Severe or Morbid Obesity Without alveolar hypoventilation Other (explain) Clinically unable to determine (explain) Thank you, Tere Wise, CCS, CDIS Use of terms such as suspected, likely, concern for, or probable (associated with a specific diagnosi s that is being evaluated, monitored, or treated as if it exists) are acceptable and can be coded in the inpatient se tting, when documented at the time of discharge. Please use your independent medical judgment in providing your response. THIS QUERY IS PART OF THE PERMANENT MEDICAL RECORD
[2023-09-20] MEDS: Enoxaparin Sodium 40 MG/0.4 ML SYRINGE SUBCUT (20:36)
[2023-09-20] MEDS: Ibuprofen 600 MG TABLET PO (21:15)
[2023-09-21 03:58] VITALS: BP 110/67; PULSE 67; RESP 17; TEMP 37.1; O2SAT 96
[2023-09-21 07:39] VITALS: BP 145/88; PULSE 63; RESP 18; TEMP 36.4; O2SAT 93
[2023-09-21] MEDS: lisinopriL 20 MG TABLET PO (08:20)
[2023-09-21] MEDS: Sertraline HCL 50 MG TABLET PO (08:20)
[2023-09-21] MEDS: Gabapentin 100 MG CAPSULE PO (08:20)
[2023-09-21] MEDS: 0.9 % Sodium Chloride Flush 3 ML SYRINGE IVFLUSH (08:21)
--- NOTE | 2023-09-21 09:09 | MHC.CM.PN ---
PT REPORTS HE LIVES AT HOME WITH HIS S/O AND IS INDEPENDENT WITH ALL CARE HE DENIES HAVING ANY HOME SERVICES AND USES ONLY A CPAP FOR DME PT SAYS HE HAS A HCP NAMING HIS MOTHER AND S/O HIS AGENTS, COPY REQUESTED PCP: CHELSEA EMERY DCP: HOME NO SERVICES VIA SELF TRANSPORT
[2023-09-21 11:19] VITALS: BP 150/90; PULSE 73; RESP 18; TEMP 36.4; O2SAT 94
--- NOTE | 2023-09-21 11:25 | MHC.CM.PN ---
Patient has been medically cleared for dc to home today, self care.
--- NOTE | 2023-09-21 11:28 | PM.DS ---
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 he c/o sob and He is coughing up yellow mucus. Also endorsing subjective fevers and chills. No abdominal pain, nausea, vomiting or diarrhea. He is a former smoker, quit in March. Of note, he has a history of opiate use disorder, denies IV drug use, has not used opiates in over 10 years. Other complaints or concerns at this time. Lab imaging EKG reviewed: CBC seems fine BMP fine Has lactic acidosis 3.4-2.7 XR/XR chest 2V IMPRESSION: Lingular pneumonia. Follow-up is recommended to confirm clearing. Patient received nebs, antibiotics in the ED: Requested admission for pneumonia. hospital course: Patient was admitted for community-acquired pneumonia: No leukocytosis, no fever, chest x-ray shows lingular pneumonia: blood cultures sent which is negative for 48 hour, patient was given IV antibiotics. viral -influenza a and B negative, RSV negative, COVID negative also. Patient seems to be improved significantly. Going home with p.o. antibiotics. Consider chest imaging study in 3-4 weeks to see resolution of pneumonia. Patient will need 8 more days of antibiotics p.o. Ceftin 500 mg p.o. b.i.d., azithromycin 500 mg daily. plan: complete 8 more days of antibiotics p.o. Ceftin 500 mg p.o. b.i.d., azithromycin 500 mg daily. Above plan discussed with the patient detail length he understand and in agreement with the above plan, time spent 50 minute. Time Attestation Discharge coordination time: Greater than 30 minutes Quality: Safe Use of Opioids Does Pt have an Active Cancer Diagnosis on the Problem List?: No Quality: Stroke Does the patient have a stroke diagnosis?: No Physical Exam Vital Signs: Vital Signs: Last Vital Signs Temp 97.5 F 09/21/23 11:19 Pulse 73 09/21/23 11:19 Resp 18 09/21/23 11:19 BP 150/90 H 09/21/23 11:19 Pulse Ox 94 09/21/23 11:19 O2 Del Method Room Air 09/21/23 11:19 BMI result Body Mass Index 45.6 Appearance: Alert.? Oriented X3.? not in distress.? cvs: rrr, [id number] , no murmur res: clear to auscultation ,no rhonchii or wheezing abd: no rebound or guarding ,nt, bs present. ext pulses present , no cyanosis . neuro: axo3 , nonfocal. DS: Data Data Completed and Pending Labs on day of discharge: Preliminary micro results at discharge 09/19/23 14:38 Blood Culture - Preliminary Blood - Venous No growth after 24 hours. 09/19/23 14:32 Blood Culture - Preliminary Blood - Venous No growth after 24 hours. Imaging Chest x-ray: Radiologist's impression: ITS Impressions Chest X-Ray 09/19/23 11:20 IMPRESSION: Lingular pneumonia. Follow-up is recommended to confirm clearing. Discharge Plan Discharge Anticipated Discharge Date/Time: 09/21/23 11:22 Patient Disposition: Home, Self-Care Discharge Diagnosis: pneumonia Referrals: Bebeto Proctor MD [Primary Care Provider] - 1 Week Discharge Medications: New cefuroxime axetil 500 mg tablet 500 mg PO BID Qty: 18 0RF azithromycin 500 mg tablet 500 mg PO DAILY 6 Days Qty: 7 0RF Continued lorazepam 1 mg tablet 1 mg PO BEDTIME PRN (Reason: anxiety) Qty: 7 0RF prednisone 20 mg tablet 40 mg PO DAILY doxycycline monohydrate 100 mg tablet 100 mg PO BID gabapentin 100 mg capsule 100 mg PO BID sertraline 50 mg tablet 50 mg PO DAILY ropinirole 1 mg tablet 1 mg PO BEDTIME lisinopril 20 mg tablet 20 mg PO DAILY albuterol sulfate 90 mcg/actuation HFA aerosol inhaler 90 mcg inhalation Q4H PRN (Reason: Shortness Of Breath) Discharge Orders: Discharge Order (Routine); Ordered 09/21/23 Ordered By: Sunita Eubanks Diet: Advance to usual diet Activity on Discharge: As tolerated Stand Alone Forms: Patient Portal Discharge page Care Plan Goals: Patient was admitted for community-acquired pneumonia: No leukocytosis, no fever, chest x-ray shows lingular pneumonia: blood cultures sent which is negative for 48 hour, patient was given IV antibiotics. viral -influenza a and B negative, RSV negative, COVID negative also. Patient seems to be improved significantly. Going home with p.o. antibiotics. Consider chest imaging study in 3-4 weeks to see resolution of pneumonia. Patient will need 7 more days of antibiotics p.o. Ceftin 500 mg p.o. b.i.d., azithromycin 500 mg daily. Health Concerns: As above. Plan of Treatment: As above. Assessment: As above. Patient Instructions: Pneumonia (DC)
[2023-09-21] MEDS: cefuroxime axetiL 500 MG TABLET PO (12:16)
[2023-09-21] MEDS: Azithromycin 500 MG TABLET PO (12:16)
== END 2023-09-21 13:16 | disposition home or self-care (01) | DRG 139 ==
LOC: HO.ED 15:09 → HO.EDOVER 18:15 → HO.IMC 20:18
PROVIDERS: Physician Assistant Medical; Student in an Organized Health Care Education/Training Program; Admitting Provider Internal Medicine; Emergency Provider Emergency Medicine Emergency Medical Services; PCP Internal Medicine; Visit Provider Internal Medicine
DX: J18.9 Pneumonia, unspecified organism (principal); D84.89 Other immunodeficiencies; E87.21 Acute metabolic acidosis; E66.09 Other obesity due to excess calories; Z68.42 Body mass index [BMI] 45.0-49.9, adult; G71.00 Muscular dystrophy, unspecified; G47.33 Obstructive sleep apnea (adult) (pediatric); Z20.822 Contact with and (suspected) exposure to COVID-19; Z87.891 Personal history of nicotine dependence; Z79.52 Long term (current) use of systemic steroids; Z79.899 Other long term (current) drug therapy
CPT/HCPCS: 0241U; 36415; 71046; 80048; 80076; 83605; 83880; 84484; 85025; 87040; 93005; 94640; 94660; 99222; 99285; J0456; J0696; J1650

== ENCOUNTER → 2023-09-19 11:03 | Outpatient (BNV) | payer OTHER, SELFPAY | PROVIDERS: Admitting Provider Internal Medicine; Emergency Provider Emergency Medicine Emergency Medical Services; PCP Internal Medicine; Visit Provider Internal Medicine Cardiovascular Disease | DX: R94.31 Abnormal electrocardiogram [ECG] [EKG] (principal); R07.9 Chest pain, unspecified | CPT/HCPCS: 93010 ==

== ENCOUNTER → 2023-09-19 18:07 | Outpatient (BNV) | payer OTHER, SELFPAY | PROVIDERS: Admitting Provider Internal Medicine; Emergency Provider Emergency Medicine Emergency Medical Services; PCP Internal Medicine; Visit Provider Internal Medicine | DX: J18.9 Pneumonia, unspecified organism (principal) | CPT/HCPCS: 99222; 99239 ==

== ENCOUNTER 2023-12-09 15:30 | Outpatient (REF) | payer OTHER, SELFPAY ==
[2023-12-09 16:52] LABS: Erythrocyte Sedimentation Rate 14 MM/HR (0-15)
[2023-12-09 16:55] LABS: Lactate Dehydrogenase 211 U/L (118-273)
[2023-12-12 09:07] LABS: Aldolase 7.8 U/L (<=8.1)
== END 2023-12-09 15:31 | disposition home or self-care (01) ==
LOC: HO.LAB 15:30
PROVIDERS: Visit Provider Psychiatry & Neurology Neurology
DX: G71.00 Muscular dystrophy, unspecified (principal)
CPT/HCPCS: 36415; 82085; 82550; 83615; 85652

== ENCOUNTER → 2024-01-01 15:54 | Outpatient (REF) | payer OTHER, SELFPAY ==
--- NOTE | 2024-01-01 15:59 | CA_ITS ---
Transthoracic Echocardiogram Patient (Last, First, Middle): Baron Pickering A Gender: Male Date of : 1985 Age: 38 Procedure Date: 01/01/2024 Procedure Type: Transthoracic Echocardiogram Location: OP Height: 170.18 cm Weight: 127.01 kg BSA: 2.33 m2 Heart Rate: bpm BP: 118 / 84 mmHg Seat Cover Installer: DELIA Referring MD: New Marks MD Contact Lens Technician: Tano Brown MD Symptoms: MUSCULAR DYSTROPHY Study Quality: Fair ECG Rhythm: Sinus Conclusions: - 1. Technically limited study despite use of contrast agent 2. Normal LV systolic function with LVEF of 65-70% 3. Cardiac valvular Doppler within normal limits Findings Procedure Information Contrast agent, definity, is being given per protocol without apparent complications. Left Ventricle Normal left ventricular size, thickness, and systolic function. The visually estimated ejection fraction is between 65-70%. Spectral Doppler is indicative of a normal filling pattern. Right Ventricle The right ventricle was not well visualized. Atria The left atrium is normal in size. Interatrial shunt cannot be excluded. The right atrium was not well visualized. Aortic Valve The aortic valve was not well visualized. There is no aortic valve stenosis. There is no aortic valve regurgitation. Mitral Valve The mitral valve was not well visualized. There is trace mitral valve regurgitation. There is no mitral valve stenosis. Pulmonic Valve The pulmonic valve was not well visualized. Tricuspid Valve The tricuspid valve was not well visualized. Tricuspid regurgitation envelope is inadequate for calculation of right ventricular systolic pressure. Normal right atrial pressure. Great Vessels The aorta was not well visualized. The pulmonary artery was not well visualized. Venous The inferior vena cava is normal in size. Pericardium/Pleural The pericardium was not well visualized. Prior Study Comparison No prior study available for comparison. Measurements 2D Linear Measurements IVSd: 0.97 0.6-0.9/0.6-1.0 cm LVIDd: 4.54 3.9-5.3/4.2-5.9 cm LVIDd Index: 1.95 2.4-3.2/2.2-3.1 cm/m2 LVIDs: 2.76 2.0-3.6 cm LVPWd: 1.11 0.7-1.1 cm LA Diam: 3.30 2.7-3.8/3.0-4.0 cm LAIDs Index: 1.42 1.5-2.3 cm/m2 LV Mass: 204.13 67-162/88-224 g LV Mass Index: 87.61 43-95/49-115 g/m2 LVOT Diam: 2.10 3.0+(-)1.3 cm 2D Systolic Function EF 4C: 67.40 >55% EF 2C: 67.50 >55% EF BiP: 67.40 >55% Mitral Valve MV Pk E: 0.68 MV PK A: 0.51 MV Decel Time: 281.00 E/A: 1.30 E'Lateral: 10.00 E'Medial: 8.16 E/E' Med: 8.30 E/E' Lat: 6.80 PHT: 82.00 MVA PHT: 2.68 Decel [place]: 2.41 Aortic Valve AoV Pk [place]: 1.42 AoV Mn [place]: 0.97 AoV VTI: 0.28 AoV Pk Grad: 8.00 Aov Mn Grad: 4.00 FANG Cont.VTI: 2.71 LVOT LVOT Pk [place]: 1.13 LVOT Mn [place]: 0.74 LVOT VTI: 0.22 LVOT Pk Grad: 5.00 LVOT Mn Grad: 3.00 LVOT Diam: 2.10 LVOT Area: 3.46 Diastolic Function MV Pk E: 0.68 MV Pk A: 0.51 E/A: 1.30 E'Medial: 8.16 E/E' Med: 8.30 E' Laterial: 10.00 E/E' Lat: 6.80 Right Ventricle TAPSE (mm): 25.40 TVS' [place]: 16.30 Tricuspid Valve RA Press: 3.00 Great Vessels Aorta Sinus of Valsalva: 2.90 2.0-3.[address] [place]: 2.73 1.7-3.4 cm Ao Asc: 3.20 2.1-3.4 cm Updated in Other Vendor System with Status of Final Tano Brown MD electronically signed on 01/02/2024 4:57:45 PM with status of Final
== END ==
LOC: HO.CARD 15:54
PROVIDERS: PCP Internal Medicine; Visit Provider Psychiatry & Neurology Neurology
DX: G71.00 Muscular dystrophy, unspecified (principal)
CPT/HCPCS: 93306; Q9957

== ENCOUNTER → 2024-01-01 15:59 | Outpatient (BNV) | payer OTHER, SELFPAY | PROVIDERS: PCP Internal Medicine; Visit Provider Internal Medicine Cardiovascular Disease | DX: R94.31 Abnormal electrocardiogram [ECG] [EKG] (principal); G71.02 Facioscapulohumeral muscular dystrophy | CPT/HCPCS: 93306 ==

== ENCOUNTER 2024-05-07 15:19 | Emergency (ER) | payer OTHER, SELFPAY ==
--- NOTE | ~2024-05-07 | US_ITS ---
EXAMINATION: US ABDOMEN LIMITED CLINICAL INFORMATION: Right upper quadrant abdominal pain. Gallbladder obstruction?. COMPARISON: Abdomen CT from 05/17/2023 TECHNIQUE: Real-time imaging of the right upper quadrant abdominal viscera. FINDINGS: PANCREAS: Normal. LIVER: The right lobe of the liver is 20.9 cm in craniocaudal dimension. The liver parenchyma is diffusely hyperechoic from steatosis. No focal lesion or intrahepatic ductal dilatation. GALLBLADDER: The gallbladder is physiologically distended without evidence of sludge, polyps, wall thickening or pericholecystic fluid. A 0.6 cm gallstone is noted. However, there is no evidence of any impacted stone within the gallbladder neck. COMMON BILE DUCT: Normal in caliber measuring 0.3 cm in diameter. RIGHT KIDNEY: Normal. No hydronephrosis. No renal calculi or focal parenchymal lesions. The kidney measures 14 cm in maximum dimension. FREE FLUID: None. US/US abdomen limited IMPRESSION: * No acute sonographic abnormalities in the right upper quadrant. * Cholelithiasis without evidence of cholecystitis or biliary tract obstruction. * Mild hepatomegaly and diffuse hepatic steatosis.
[2024-05-07 15:26] VITALS: BP 135/73; PULSE 100; RESP 20; TEMP 36.4; O2SAT 98; BMI 44.3
--- NOTE | 2024-05-07 15:29 | ECG_ITS ---
Test Reason : abd pain Blood Pressure : / mmHG Vent. Rate : 088 BPM Atrial Rate : 088 BPM P-R Int : 134 ms QRS Dur : 074 ms QT Int : 350 ms P-R-T Axes : 067 025 -32 degrees QTc Int : 423 ms Normal sinus rhythm Low voltage QRS Inferior infarct (cited on or before 31-JUL-2023) Cannot rule out Anterior infarct , age undetermined Abnormal ECG When compared with ECG of 19-SEP-2023 11:21, Nonspecific T wave abnormality now evident in Lateral leads Referred By: Loren Luz Electronically Signed By:VLADIMIR GOINS MD
[2024-05-07 16:36] LABS: MANUAL DIFF FLAG NO
[2024-05-07 16:38] LABS: Basophils Absolute Auto 0.1 X10*3/uL (0.0-0.2); Basophils Percent Auto 0.7 % (0-2); Eosinophils Absolute Auto 0.1 X10*3/uL (0.0-0.4); Eosinophils Percent Auto 1.7 % (0-4); Hematocrit 44.7 % (42.0-52.0); Imm Gran Abs Auto 0.03 X10*3/uL (0.00-0.03); Imm Gran Pct Auto 0.4 % (0.0-0.4); Lymphocytes Absolute Auto 2.5 X10*3/uL (1.2-4.9); Lymphocytes Percent Auto 32.4 % (20-40); Mean Corpuscular HGB Conc 33.6 g/dl (31.0-36.0); Mean Corpuscular Hemoglobin 32.2 pg (27.0-33.0); Mean Corpuscular Volume 95.9 fL (80.0-98.0); Mean Platelet Volume 10.7 fL (9.4-12.4); Monocytes Absolute Auto 0.6 X10*3/uL (0.1-1.2); Monocytes Percent Auto 7.9 % (2-11); Neutrophils Absolute Auto 4.3 x10*3/uL (2.0-8.3); Neutrophils Percent Auto 56.9 % (45-73); Platelet Count 236 X10*3/uL (160-400); Red Blood Count 4.66 X10*6/uL (4.60-5.80); Red Cell Distribution Width 13.2 % (11.0-16.0); White Blood Count 7.6 X10*3/uL (4.8-10.8)
[2024-05-07 16:40] LABS: Appearance Urine Clear; Color Urine Yellow; Glucose Urine UA >=1000 mg/dL (Negative); Leukocyte Esterase Urine Negative (Negative); Nitrite Urine Negative (Negative); PH 5.5 (5.0-9.0); Specific Gravity - Urine >= 1.030 (1.005-1.025); UMIC TRIGGER UACC YES; Urine Blood Negative (Negative); Urine Ketones Trace mg/dL (Negative); Urine Protein Negative (Neg-Trace)
[2024-05-07 16:43] LABS: Bacteria Urine None Seen (None Seen); Hyaline Casts Urine 0-2 /LPF (0-2); RBC Urine 0-2 /HPF (0-2); WBC Urine 0-5 /HPF (0-5)
[2024-05-07 16:54] LABS: Alanine Aminotransferase 57 U/L (0-40); Alkaline Phosphatase 67 U/L (39-117); Anion Gap 18 (12-20); Aspartate Amino Transferase 47 U/L (5-37); Bilirubin Total 0.6 mg/dL (0.0-1.0); Blood Urea Nitrogen 9 mg/dL (9-16); Calcium 9.8 mg/dL (8.4-10.2); Carbon Dioxide 23 mmol/L (22-29); Chloride 106 mmol/L (96-108); Creatinine Clr Calc Pharmacy 186.8; Estimated Glomerular Filt Rate > 60; Glucose Random 129 mg/dL (60-115); Lipase 25 U/L (8-78); Potassium 4.3 mmol/L (3.3-5.1); Sodium 143 mmol/L (135-145); Total Protein 7.3 g/dL (6.5-8.0)
[2024-05-07 17:00] LABS: Troponin-I High Sensitivity 3.8 ng/L (<3.5-35.0)
--- NOTE | 2024-05-07 18:31 | ED.ABDPAIN ---
HPI - Abdominal Pain General Chief Complaint: Abdominal Pain Stated Complaint: gallbladder obstruction? Time Seen by Provider: 05/07/24 18:17 Source: patient Mode of arrival: ambulatory History of Present Illness ED Provider: Dr Vera HPI narrative: 38-year-old male with history of muscular dystrophy, hypertension, COPD, who presents with right-sided abdominal discomfort, this is been intermittent in nature for several weeks and he was referred for ultrasound yesterday by his primary care doctor which demonstrated cholelithiasis, he has not had any reported nausea, vomiting, fevers or chills. Although in the triage note it states that patient has had nausea and vomiting. Related Data Home Medications ?Medication ?Instructions ?Recorded ?Confirmed albuterol sulfate 90 mcg/actuation 90 mcg inhalation Q4H PRN 08/20/22 09/19/23 aerosol inhaler Shortness Of Breath lisinopril 20 mg tablet 20 mg PO DAILY 08/20/22 09/19/23 doxycycline monohydrate 100 mg 100 mg PO BID 09/19/23 09/19/23 tablet gabapentin 100 mg capsule 100 mg PO BID 09/19/23 09/19/23 prednisone 20 mg tablet 40 mg PO DAILY 09/19/23 09/19/23 sertraline 50 mg tablet 50 mg PO DAILY 09/19/23 09/19/23 ropinirole 1 mg tablet 1 mg PO BEDTIME 09/20/23 09/20/23 Previous Rx's ?Medication ?Instructions ?Recorded lorazepam 1 mg tablet 1 mg PO BEDTIME PRN anxiety #7 tabs 07/31/23 azithromycin 500 mg tablet 500 mg PO DAILY 6 days #7 tabs 09/21/23 cefuroxime axetil 500 mg tablet 500 mg PO BID #18 tabs 09/21/23 guaifenesin 600 mg tablet, 600 mg PO BID #10 tabs 09/21/23 extended release 12 hr (Mucinex) Allergies Allergy/AdvReac Type Severity Reaction Status Date / Time naproxen Allergy Mild Unknown Verified 05/07/24 15:28 acetaminophen [From Vicodin] Allergy Unknown Itching Verified 05/07/24 15:28 baclofen Allergy Unknown ITCH, Verified 05/07/24 15:28 Dizziness hydrocodone [From Vicodin] Allergy Unknown Itching Verified 05/07/24 15:28 tramadol [TRAMADOL] Allergy Unknown ITCH Verified 05/07/24 15:28 Review of Systems Review of Systems Pertinent positives and negatives as stated in HPI [facility] Past Medical History Source: nursing notes reviewed Medical History Carpal tunnel syndrome Right hip pain Numbness and tingling in both hands Scoliosis Back pain Hyperlipidemia GERD (gastroesophageal reflux disease) HTN (hypertension) GABRIEL on CPAP Hypoxemia Tobacco use disorder Opioid use disorder WPW (Rnzjx-Drdvjwkyu-Cakfu syndrome) Muscular dystrophy Family History Family History Mother Hypotension Muscular dystrophy Father Heart disease Social History Social History Household Members: Family Housing: House Do you presently have visiting nurse or other home services: No Unable to assess alcohol history related to: Unknown Alcohol intake: current Alcohol intake frequency: does not drink Patient Tobacco Use Status: Former Tobacco user Cigarette Packs Per Day: 1 Years Smoked: 20 e-Cigarette/Vaping Use: Never Used Substance Use Type: Marijuana service: No Physical Exam ED Vital Signs: Vital Signs - 24 hr 05/07/24 15:26 Temperature 97.5 F Pulse Rate 100 Respiratory Rate 20 Blood Pressure 135/73 Pulse Oximetry 98 Oxygen Delivery Method Room Air BMI result Body Mass Index 44.3 VITAL SIGNS: Reviewed. GENERAL: Elevated BMI, Well developed, well nourished, in no acute distress. HEAD: Normocephalic/atraumatic EYES: PERRLA, EOMI EARS: Ext canals without abnormality NOSE: Nares patent bilateral OROPHARYNX: no oral lesions noted, posterior pharynx clear NECK: Supple, no adenopathy LUNGS: Normal breath sounds. No adventitious sounds or accessory muscle use. SpO2<98> CARDIOVASCULAR: Regular rate and rhythm without noted murmurs ABDOMEN: Soft, non-tender, non-distended with bowel sounds. MUSCULOSKELETAL: No tenderness, deformities, or effusions noted on gross inspection. EXTREMITIES: No cyanosis, clubbing or edema. SKIN: Inspection of the skin reveals no rashes NEUROLOGIC: Alert and oriented x 4. Strength and sensation to light touch were grossly intact x 4. Medical Decision Making Medical Decision Making MDM Narrative: 38-year-old male with history and clinical presentation, DDX: Biliary colic, musculoskeletal pain, fatty liver, lower clinical suspicion for cholecystitis or choledocholithiasis. I reviewed and interpreted all investigations and hematologic indices are negative for leukocytosis/anemia/thrombocytopenia. Chemistry indices are negative for PATRICIO or electrolyte derangements, there is a slight transaminase elevation that is likely reflective of underlying fatty liver disease otherwise alkaline phosphatase is within normal limits and not consistent with choledocho lithiasis. Lipase is within normal limits and high sensitivity troponin is detectable but not elevated and there are no acute changes on EKG. I do not have any concerns regarding ACS at this time. Urinalysis is negative for UTI or hematuria. Ultrasound does not demonstrate any gallbladder wall thickening or pericholecystic fluid and although there are stones there is no evidence of cholecystitis. EKG: Normal sinus rhythm, HR-88, no STEMI, NM/QRS/QTC is within normal limits. My interpretation is that patient has cholelithiasis and likely is experiencing intermittent biliary colic, patient was encouraged to use atwv-djh-[id number] analgesics and will be provided with a referral to follow-up with general surgery. Differential Diagnosis Differential Diagnoses: The differential diagnosis associated with the presentation includes Please see the discussion above Admission/Observation Consideration of admission/observation: Escalation of care including admission/observation considered Please see the discussion above Lab Data MDM Lab Attestation statement: I reviewed the patient's lab results. Please see the discussion above 05/07/24 16:31 05/07/24 16:31 Labs: Lab Results 05/07/24 05/07/24 Range/Units 16:31 16:32 WBC 7.6 (4.8-10.8) X10*3/uL RBC 4.66 (4.60-5.80) X10*6/uL Hgb 15.0 (14.0-18.0) g/dl Hct 44.7 (42.0-52.0) % MCV 95.9 (80.0-98.0) fL MCH 32.2 (27.0-33.0) pg MCHC 33.6 (31.0-36.0) g/dl RDW 13.2 (11.0-16.0) % Plt Count 236 (160-400) X10*3/uL MPV 10.7 (9.4-12.4) fL Immature Gran % (Auto) 0.4 (0.0-0.4) % Neut % (Auto) 56.9 (45-73) % Lymph % (Auto) 32.4 (20-40) % [place] % (Auto) 7.9 (2-11) % Eos % (Auto) 1.7 (0-4) % Baso % (Auto) 0.7 (0-2) % Lymph # (Auto) 2.5 (1.2-4.9) X10*3/uL [place] # (Auto) 0.6 (0.1-1.2) X10*3/uL Eos # (Auto) 0.1 (0.0-0.4) X10*3/uL Baso # (Auto) 0.1 (0.0-0.2) X10*3/uL Abs Immat Gran (auto) 0.03 (0.00-0.03) X10*3/uL Absolute Neuts (auto) 4.3 (2.0-8.3) x10*3/uL Absolute Nucleated RBC 0.000 (0.0-0.012) X10*3/uL Nucleated RBC % (auto) 0.0 (0.0-0.2) /100WBC Sodium 143 (135-145) mmol/L Potassium 4.3 (3.3-5.1) mmol/L Chloride 106 (96-108) mmol/L Carbon Dioxide 23 (22-29) mmol/L Anion Gap 18 (12-20) BUN 9 (9-16) mg/dL Creatinine 0.69 (0.5-1.4) mg/dL Estim Creat Clear Calc 186.8 Estimated GFR > 60 Random Glucose 129 H (60-115) mg/dL Calcium 9.8 D (8.4-10.2) mg/dL Magnesium 2.0 (1.6-2.6) mg/dL Total Bilirubin 0.6 (0.0-1.0) mg/dL AST 47 H (5-37) U/L ALT 57 H (0-40) U/L Alkaline Phosphatase 67 (39-117) U/L Troponin I High Sens 3.8 (<3.5-35.0) ng/L Total Protein 7.3 (6.5-8.0) g/dL Albumin 4.0 (3.5-5.0) g/dL Lipase 25 (8-78) U/L Urine Color Yellow Urine Appearance Clear Urine pH 5.5 (5.0-9.0) Ur Specific [place] >= 1.030 H (1.005-1.025) Urine Protein Negative (Neg-Trace) mg/dL Urine Glucose (UA) >=1000 H (Negative) mg/dL Urine Ketones Trace (Negative) mg/dL Urine Blood Negative (Negative) Urine Nitrite Negative (Negative) Ur Leukocyte Esterase Negative (Negative) Urine RBC 0-2 (0-2) /HPF Urine WBC 0-5 (0-5) /HPF Ur Squamous Epith Cells 3-5 (0-2) /HPF Urine Bacteria None Seen (None Seen) Hyaline Casts 0-2 (0-2) /LPF Independent Interpretation I performed an independent interpretation of an: EKG Interpretation: Please see the discussion above Radiology Impression Discussion of test interpretation with radiology: I have reviewed the radiologist's reading. Radiologist Impression: Please see the discussion above External Record Review External record reviewed: Outpatient record, Prior outpatient labs and Prior outpatient radiology Chronic Conditions Patient?s care impacted by: Hypertension Muscular dystrophy, COPD Critical Care Time Critical Care Time Critical Care Time: Yes Total Critical Care Time: 30 Attestation: I personally attest to this time spent taking care of the patient. Discharge Plan Discharge Clinical Impression: Abdominal discomfort in right upper quadrant, Cholelithiasis Instructions: Biliary Colic (ED), Gallstones (ED) Additional Instructions: 1. Resume all home medications as prescribed. 2. Recommend avoiding fatty foods. 3. You have been provided with a referral for General surgery and should call the office in the morning to set up an appointment for evaluation and scheduling of outpatient gallbladder removal. Return to the ER for any worsening symptoms. Prescriptions: No Action lorazepam 1 mg tablet 1 mg PO BEDTIME PRN (Reason: anxiety) Qty: 7 0RF prednisone 20 mg tablet 40 mg PO DAILY doxycycline monohydrate 100 mg tablet 100 mg PO BID gabapentin 100 mg capsule 100 mg PO BID sertraline 50 mg tablet 50 mg PO DAILY ropinirole 1 mg tablet 1 mg PO BEDTIME cefuroxime axetil 500 mg tablet 500 mg PO BID Qty: 18 0RF azithromycin 500 mg tablet 500 mg PO DAILY 6 Days Qty: 7 0RF guaifenesin [Mucinex] 600 mg tablet extended release 12hr 600 mg PO BID Qty: 10 0RF lisinopril 20 mg tablet 20 mg PO DAILY albuterol sulfate 90 mcg/actuation HFA aerosol inhaler 90 mcg inhalation Q4H PRN (Reason: Shortness Of Breath) Referrals: Bebeto Proctor MD [Primary Care Provider] - Nick Lucio MD [Physician] - Print Language: Setswana
[2024-05-07 19:28] VITALS: BP 135/73; PULSE 100; RESP 20; TEMP 36.4; O2SAT 98
== END 2024-05-07 19:29 | disposition home or self-care (01) ==
PROVIDERS: Physician Assistant; Emergency Provider Student in an Organized Health Care Education/Training Program; PCP Internal Medicine
DX: K80.20 Calculus of gallbladder without cholecystitis without obstruction (principal); R10.11 Right upper quadrant pain; G71.00 Muscular dystrophy, unspecified; I10 Essential (primary) hypertension; J44.9 Chronic obstructive pulmonary disease, unspecified; R11.2 Nausea with vomiting, unspecified; Z79.899 Other long term (current) drug therapy
CPT/HCPCS: 36415; 76705; 80053; 81001; 83690; 83735; 84484; 85025; 93005; 99283; 99284

== ENCOUNTER → 2024-05-07 15:29 | Outpatient (BNV) | payer OTHER, SELFPAY | PROVIDERS: Emergency Provider Student in an Organized Health Care Education/Training Program; PCP Internal Medicine; Visit Provider Internal Medicine Cardiovascular Disease | DX: R94.31 Abnormal electrocardiogram [ECG] [EKG] (principal) | CPT/HCPCS: 93010 ==

== ENCOUNTER 2024-05-18 15:16 | Outpatient (AMB) | payer OTHER, SELFPAY ==
--- NOTE | 2024-05-18 15:17 | A.OFFVIS_ITS ---
Vital Signs 05/18/24 15:27 Height 5 ft 7 in Weight 282 lb 3.067 oz BMI 44.2 Pulse 90 Intake Visit Reasons: Cholelithiasis Intake Note: This patient presents for [facility] [place] follow-up for Cholelithiasis. 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 He has had this intermittent right upper quadrant pain for about 2 years now. His primary care physician had ordered for an ultrasound 2 weeks ago and this did show gallstones without cholecystitis. He was actually sent in the ER by his primary care physician after the report came out but he was discharged from the ER she was fairly asymptomatic then and did not have any acute cholecystitis. His LFTs were within normal. He does have multiple medical problems including muscular dystrophy, depression, COPD, hypertension, obstructive sleep apnea and chronic back pain He said he had quit smoking for about 10 years now. 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 He has difficulty walking now and has very limited range of motion of all his extremities. He gets short of breath easily. He is a CPAP machine at night. [facility] Medical History (Updated 05/18/24 @ 15:41 by Josemanuel Melo MD) Morbid obesity Gallstones Carpal tunnel syndrome Right hip pain Numbness and tingling in both hands Scoliosis Back pain Hyperlipidemia GERD (gastroesophageal reflux disease) HTN (hypertension) GABRIEL on CPAP Hypoxemia Tobacco use disorder Opioid use disorder WPW (Qoffu-Ctbozzwpo-Ysvho syndrome) Muscular dystrophy Family History Mother Hypotension Muscular dystrophy Father Heart disease Social History Household Members: Family Housing: House Do you presently have visiting nurse or other home services: No Unable to assess alcohol history related to: Unknown Alcohol intake: current Alcohol intake frequency: does not drink Patient Tobacco Use Status: Former Tobacco user Cigarette Packs Per Day: 1 Years Smoked: 20 e-Cigarette/Vaping Use: Never Used Substance Use Type: Marijuana service: No Review of Systems Const Denies chills and Denies fever(s) Card Denies chest pain, Denies dyspnea and Reports dyspnea on exertion Resp Denies cough, Denies dyspnea and Reports dyspnea on exertion GI Denies hematochezia and Denies change in bowel habits Denies hematuria and Denies difficulty urinating Musc Reports abnormal gait, Reports back pain, Reports arthralgias, Reports limited range of motion and Reports muscle weakness Neuro Reports abnormal gait, Denies focal weakness and Denies convulsions Psych Denies depression and Denies mood swings Physical Exam Vital Signs: Last Vital Signs Pulse 90 05/18/24 15:27 BMI result Body Mass Index 44.2 Const Other: Appears overweight, able to ambulate but with some difficulty General: comfortable and no acute distress Orientation/consciousness: patient oriented x3 Neck Neck: Yes no lymphadenopathy Resp Auscultation: clear to auscultation bilaterally Cardio Rhythm: regular rhythm GI Palpation (GI): Soft to palpation, nontender and no guarding Neuro Other: Has progressive muscle weakness General: patient oriented x3 Assessment & Plan Assessment & Plan (1) Gallstones: Code(s): K80.20 - Calculus of gallbladder without cholecystitis without obstruction Category: Medical Plan: He has known gallstones and appears to frequent right upper quadrant pain. I explained to him the option of proceeding with cholecystectomy for symptomatic gallstones. I discussed with him the technique of laparoscopic cholecystectomy and possible open cholecystectomy. I reviewed the risks including but not limited to bleeding, infections, injury to other organs including bowel, liver and the bile ducts, retained stones, bile leak, as well as the benefits and alternatives. I did explain to him that there is no guarantee that his symptoms will completely resolve with cholecystectomy He does understand that he has significant perioperative risks in view of his multiple medical problems. He wants to proceed with a cholecystectomy. His was with him during the visit. Coding Level of Care Code New Pt Level 3 (15264) Diagnoses Gallstones K80.20
[2024-05-18 15:27] VITALS: PULSE 90; BMI 44.2
== END 2024-05-18 15:37 | disposition home or self-care (01) ==
PROVIDERS: PCP Internal Medicine; Visit Provider Surgery
DX: K80.20 Calculus of gallbladder without cholecystitis without obstruction (principal)
CPT/HCPCS: 99204

== ENCOUNTER → 2024-05-18 15:16 | Outpatient (BNVA) | payer OTHER, SELFPAY | PROVIDERS: PCP Internal Medicine; Visit Provider Surgery | DX: K80.20 Calculus of gallbladder without cholecystitis without obstruction (principal) | CPT/HCPCS: 99202 ==

== ENCOUNTER 2024-06-09 10:24 | Day surgery (SDC) | payer OTHER, SELFPAY ==
[2024-06-03 14:34] VITALS: BMI 44.8
--- NOTE | 2024-06-08 12:26 | P.CONAN_ITS ---
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 WORLEY for eval DOS. [facility] Active Problems Active Problems: All Active Problems Lingular pneumonia (Acute) Fasciohumeroscapular dystrophy (Acute) Morbid obesity (Acute) Gallstones (Acute) Carpal tunnel syndrome (Acute) Right hip pain (Acute) Numbness and tingling in both hands (Acute) Scoliosis (Acute) Back pain (Acute) Hyperlipidemia (Acute) GERD (gastroesophageal reflux disease) (Acute) HTN (hypertension) (Acute) GABRIEL on CPAP (Acute) Hypoxemia (Acute) Opioid use disorder (Acute) Tobacco use disorder (Acute) WPW (Nrzfs-Ewacopfyl-Ogwcb syndrome) (Acute) Muscular dystrophy (Acute) Past Medical History Medical History Walker as ambulation aid Quit smoking (~04/2023) Elevated LFTs RLS (restless legs syndrome) Chronic pain syndrome Insomnia Morbid obesity Gallstones Carpal tunnel syndrome Right hip pain Numbness and tingling in both hands Scoliosis Back pain Hyperlipidemia GERD (gastroesophageal reflux disease) HTN (hypertension) GABRIEL on CPAP Hypoxemia Tobacco use disorder Opioid use disorder WPW (Buayx-Fsiczyuzg-Nwjrw syndrome) Muscular dystrophy Family History Family History Mother Hypotension Muscular dystrophy Father Heart disease Surgical History Surgical History H/O cardiac radiofrequency ablation (~2009) Social History Social History Household Members: Family Housing: House Are you a primary spiritual care coordinator to a significant other at home: No Do you presently have visiting nurse or other home services: No Unable to assess alcohol history related to: Unknown Alcohol intake: current Alcohol intake frequency: holidays/special occasions only Patient Tobacco Use Status: Former Tobacco user Tobacco use type: Cigarette Cigarette Packs Per Day: 1 Years Smoked: 20 Smoked in Last 30 Days: No e-Cigarette/Vaping Use: Never Used Use of substances other than those prescribed or required for medical reasons: No Substance Use Type: Marijuana Have you been hit, kicked, punched, or otherwise hurt by someone within the past year? If so, by whom?: No Are you DNR?: No Advance Directives: No Advance Directives Information Provided: Yes Advance Directives on File: No Healthcare Proxy: No Recently lost weight without trying: No Poor oral hygiene: No service: No Meds Allergies Allergy/AdvReac Type Severity Reaction Status Date / Time baclofen Allergy Unknown ITCH, Verified 06/09/24 10:37 Dizziness hydrocodone [From Vicodin] Allergy Unknown Itching Verified 06/09/24 10:37 naproxen Allergy Unknown Unknown Verified 06/09/24 10:37 tramadol [TRAMADOL] Allergy Unknown ITCH Verified 06/09/24 10:37 Home Medications ?Medication ?Instructions ?Recorded ?Confirmed ?Last Taken ?Type albuterol sulfate 90 mcg/actuation 90 mcg inhalation Q4H PRN 08/20/22 06/09/24 06/08/24 History aerosol inhaler Shortness Of Breath duloxetine 60 mg capsule,delayed 60 mg PO DAILY 05/18/24 06/09/24 06/08/24 History release ergocalciferol (vitamin D2) 1,250 1,250 mcg PO QWEEK 05/18/24 06/09/24 06/08/24 History mcg (50,000 unit) capsule (Vitamin D2) lisinopril 20 mg tablet 10 mg PO DAILY 05/18/24 06/09/24 06/08/24 History ropinirole 2 mg tablet 6 mg PO BEDTIME 05/18/24 06/09/24 06/08/24 History tizanidine 2 mg capsule 2 mg PO TID PRN Pain 05/18/24 06/09/24 06/08/24 History trazodone 50 mg tablet 50 mg PO BEDTIME 05/18/24 06/09/24 06/08/24 History ipratropium 20 mcg-albuterol 100 1 puff inhalation QID 06/03/24 06/09/24 06/08/24 History mcg/actuation mist for inhalation (Combivent Respimat) lorazepam 1 mg tablet 1 mg PO BID PRN anxiety 06/03/24 06/09/24 06/09/24 09:30 History Exam Height,Weight and Vital Signs: Height 5 ft 7 in Weight 129.727 kg Pertinent Lab Results Pertinent Lab Results: Laboratory Tests 05/07/24 16:31 WBC 7.6 Hgb 15.0 Hct 44.7 Plt Count 236 Sodium 143 Potassium 4.3 Chloride 106 Carbon Dioxide 23 BUN 9 Creatinine 0.69 Narrative Narrative: EKG 04/2024 Vent. Rate : 088 BPM Atrial Rate : 088 BPM P-R Int : 134 ms QRS Dur : 074 ms QT Int : 350 ms P-R-T Axes : 067 025 -32 degrees QTc Int : 423 ms Normal sinus rhythm Low voltage QRS Inferior infarct (cited on or before 31-JUL-2023) Cannot rule out Anterior infarct , age undetermined Abnormal ECG When compared with ECG of 19-SEP-2023 11:21, Nonspecific T wave abnormality now evident in Lateral leads ECHO 12/2023 Conclusions: - 1. Technically limited study despite use of contrast agent 2. Normal LV systolic function with LVEF of 65-70% 3. Cardiac valvular Doppler within normal limits Assessment and Plan Assessment Anesthesia Assessment: Chart Reviewed
[2024-06-09 11:22] VITALS: BP 122/81; PULSE 77; RESP 16; TEMP 36.6; O2SAT 95; BMI 44.8
--- NOTE | 2024-06-09 11:42 | PC.NURSE ---
Pt evaluated by anesthesia, Dr. Saleh and approved for surgery.
[2024-06-09] MEDS: Lactated Ringers 1,000 ML 100 ML IVCONT (11:55)
--- NOTE | 2024-06-09 12:25 | MHC.SHP ---
Pre-Procedural Eval Section A - 24 Hr Update-Section A only Date of Service: 06/09/24 The patient is an INPATIENT: No Changes since office visit: No Cold of Flu in the past 2 weeks, No New Medical Problems, No Changes in Medication and No Patient answered all questions The patient has been examined within 24 hours of the surgical procedure. The History & Physical has been completed within 30 days and I have reviewed it.: Yes Section B - Complete if H&P > 30 days Chief Complaint: Calculus of gallbladder without cholecystitis with Allergies: Allergies Allergy/AdvReac Type Severity Reaction Status Date / Time baclofen Allergy Unknown ITCH, Verified 06/09/24 10:37 Dizziness hydrocodone [From Vicodin] Allergy Unknown Itching Verified 06/09/24 10:37 naproxen Allergy Unknown Unknown Verified 06/09/24 10:37 tramadol [TRAMADOL] Allergy Unknown ITCH Verified 06/09/24 10:37 Plan I have reviewed the history and physical and performed a pertinent physical examination on my patient. No changes have occurred unless specified. Time Spent With Patient Time: Total time managing care of this patient today ____ minutes.
--- NOTE | 2024-06-09 13:49 | HO.ANESPROP2 ---
[facility] Active Problems Active Problems: All Active Problems (Updated 06/03/24 @ 14:34 by Janie Balderrama, NICKIE) Lingular pneumonia (Acute) Fasciohumeroscapular dystrophy (Acute) Morbid obesity (Acute) Gallstones (Acute) Carpal tunnel syndrome (Acute) Right hip pain (Acute) Numbness and tingling in both hands (Acute) Scoliosis (Acute) Back pain (Acute) Hyperlipidemia (Acute) GERD (gastroesophageal reflux disease) (Acute) HTN (hypertension) (Acute) GABRIEL on CPAP (Acute) Hypoxemia (Acute) Opioid use disorder (Acute) Tobacco use disorder (Acute) WPW (Ffnxe-Omnsqreks-Emjav syndrome) (Acute) Muscular dystrophy (Acute) Past Medical History Medical History Walker as ambulation aid Quit smoking (~04/2023) Elevated LFTs RLS (restless legs syndrome) Chronic pain syndrome Insomnia Morbid obesity Gallstones Carpal tunnel syndrome Right hip pain Numbness and tingling in both hands Scoliosis Back pain Hyperlipidemia GERD (gastroesophageal reflux disease) HTN (hypertension) GABRIEL on CPAP Hypoxemia Tobacco use disorder Opioid use disorder WPW (Gizwx-Mtkuvqfee-Hlicc syndrome) Muscular dystrophy Functional capacity: independent ambulation Family History Family History Mother Hypotension Muscular dystrophy Father Heart disease Family history of problems with anesthesia: No Surgical History Surgical History H/O cardiac radiofrequency ablation (~2009) History of Problems with Anesthesia: No Social History Social History Household Members: Family Housing: House Are you a primary transitional care liaison to a significant other at home: No Do you presently have visiting nurse or other home services: No Unable to assess alcohol history related to: Unknown Alcohol intake: current Alcohol intake frequency: holidays/special occasions only Patient Tobacco Use Status: Former Tobacco user Tobacco use type: Cigarette Cigarette Packs Per Day: 1 Years Smoked: 20 Smoked in Last 30 Days: No e-Cigarette/Vaping Use: Never Used Use of substances other than those prescribed or required for medical reasons: No Substance Use Type: Marijuana Have you been hit, kicked, punched, or otherwise hurt by someone within the past year? If so, by whom?: No Are you DNR?: No Advance Directives: No Advance Directives Information Provided: Yes Advance Directives on File: No Healthcare Proxy: No Recently lost weight without trying: No Poor oral hygiene: No service: No Meds Allergies Allergy/AdvReac Type Severity Reaction Status Date / Time baclofen Allergy Unknown ITCH, Verified 06/09/24 10:37 Dizziness hydrocodone [From Vicodin] Allergy Unknown Itching Verified 06/09/24 10:37 naproxen Allergy Unknown Unknown Verified 06/09/24 10:37 tramadol [TRAMADOL] Allergy Unknown ITCH Verified 06/09/24 10:37 Active Medications: Current Medications Lactated Ringer's (Lr) 1,000 mls @ 100 mls/hr IVCONT .Q10H FABIO Last Admin: 06/09/24 11:55 Dose: 100 mls/hr Home Medications ?Medication ?Instructions ?Recorded ?Confirmed ?Last Taken ?Type albuterol sulfate 90 mcg/actuation 90 mcg inhalation Q4H PRN 08/20/22 06/09/24 06/08/24 History aerosol inhaler Shortness Of Breath duloxetine 60 mg capsule,delayed 60 mg PO DAILY 05/18/24 06/09/24 06/08/24 History release ergocalciferol (vitamin D2) 1,250 1,250 mcg PO QWEEK 05/18/24 06/09/24 06/08/24 History mcg (50,000 unit) capsule (Vitamin D2) lisinopril 20 mg tablet 10 mg PO DAILY 05/18/24 06/09/24 06/08/24 History ropinirole 2 mg tablet 6 mg PO BEDTIME 05/18/24 06/09/24 06/08/24 History tizanidine 2 mg capsule 2 mg PO TID PRN Pain 05/18/24 06/09/24 06/08/24 History trazodone 50 mg tablet 50 mg PO BEDTIME 05/18/24 06/09/24 06/08/24 History ipratropium 20 mcg-albuterol 100 1 puff inhalation QID 06/03/24 06/09/24 06/08/24 History mcg/actuation mist for inhalation (Combivent Respimat) lorazepam 1 mg tablet 1 mg PO BID PRN anxiety 06/03/24 06/09/24 06/09/24 09:30 History Exam Height,Weight and Vital Signs: Height 5 ft 7 in Weight 129.727 kg Last Vital Signs Temp 97.9 F 06/09/24 11:22 Pulse 77 06/09/24 11:22 Resp 16 06/09/24 11:22 BP 122/81 06/09/24 11:22 Pulse Ox 95 06/09/24 11:22 O2 Del Method Room Air 06/09/24 11:22 Airway Mallampati Class: IV TM Dist: >3cm Neck ROM: Full Heart: RRR Lungs: CTA Assessment and Plan Assessment Anesthesia Assessment: Anesthesia Plan Discussed and Chart Reviewed Final Anesthetic Review Family History of Problems with Anesthesia: No History of Problems with Anesthesia: No NPO: Yes ASA Class: III and Emergency Final Preanesthetic Review: Meds/Allgs Chart Reviewed, Consent Obtained/Reviewed and Anes Risks/Benef Reviewed Patient Risk: Intermediate Procedure Risk: Intermediate Anesthetic Plan Anesthetic Plan: GA Disposition: Standard PACU
--- NOTE | 2024-06-09 14:36 | P.OP_ITS ---
Operative Note Operative Note Date of Service: 06/09/24 Narrative: Preop diagnosis: Gallstones with symptoms Postop diagnosis: Gallstones, chronic cholecystitis Procedure: Laparoscopic cholecystectomy Surgeon: Josemanuel Melo MD assistant professor of nursing: JAKE Ochoa The patient is a 38-year-old male, with morbid obesity, muscular dystrophy, obstructive sleep apnea, with recurrent and chronic right upper quadrant pain and tenderness. He had an ultrasound in the ER showing gallstones. Review of his symptoms, he wanted to proceed with cholecystectomy. He understood the technique of laparoscopic cholecystectomy as well as the risks, benefits and alternatives. He was brought to the operating room. She was placed supine under general anesthesia via endotracheal tube. The abdomen was prepped and draped in the usual sterile fashion. A surgical time-out was done. The patient received Cefotan preoperatively. I made a short supraumbilical incision using blade 15. This carried down through the full-thickness of the skin and subcutaneous fat down to the fascia. The fascia was incised. The peritoneum was entered. Through this incision Shah port was introduced. Pneumoperitoneum was introduced to a pressure of 15 mm Hg. From here on the rest of the procedure was done under vision with the 10 mm laparoscope. With laparoscopic visualization I inserted a 5/12 mm port in the epigastric area below the subcostal margin. Two 5 mm ports introduced a small incisions below the subcostal margin along the anterior axillary line in the midclavicular line. Graspers were placed through these working ports. The patient was placed in head up and [id number] position. The gallbladder was seen. This was distended but soft with mild erythematous changes. I was able to apply a grasper at the fundus and this was used to retract the gallbladder cephalad. There was note of a lot of adherent omentum as well as fibrous tissue surrounding the rest of the anterior wall. I did do a lot of careful dissection with the [place] dissector to dissect this and clear up the entire anterior wall of the gallbladder. By doing so was able to apply another grasper towards the pouch of the gallbladder to retract this laterally. The gallbladder was therefore being retracted in a cephalad and lateral fashion to put the area of the cystic duct on stretch. I carefully used the [place] dissector to define the neck of the gallbladder. However, there was note of very thick, fibroareolar tissue surrounding the neck and we could not initially identify the cystic duct. The gallbladder appeared to be a very long. There was note of duodenum adherent to the area as well we had to carefully stripped this off using blunt dissection with the laparoscopic suction tip Eventually as able to separate the duodenum from the gallbladder. I had to do a lot of careful dissection using the [place] dissector as well as the suction tip bluntly to carefully separate very dense fatty tissue surrounding the neck. This part of the procedure took an extended period time. Eventually I was able to see what appeared to be the cystic duct and we were able to trace it all the way to the neck confirming this to be the cystic duct. With critical view of the hepatocystic triangle achieved, I then applied clips on the cystic duct with 2 clips being applied distally. The cystic duct was transected between clips with Endo scissors. I gently the inferior edge of the gallbladder from the rest of the hilum . I had to do more dissection of the hilum in view of the presence of very thick fatty areolar tissue. I was able to visualize the cystic artery. Clips were applied with 2 clips being applied distally and the cystic artery was transected between clips with Endo scissors I proceeded to use the L hook electrocautery to divide through the hilum until I reached the interface the gallbladder wall and the liver bed. I the gallbladder wall from the liver bed using a combination of electrocautery as well as with blunt dissection using the tip of the spatula to separate the gallbladder from the liver bed. I followed this plane of dissection. I continued to separate the gallbladder from the liver bed along this well-defined plane all the way to the fundus. I was able to eventually completely separate the gallbladder from the liver bed and this was retrieved with an endobag. I then reinserted the ports and examined laparoscopically. I copiously irrigated until the irrigant fluid was clear. There had been a tear in the gallbladder wall with some leakage of bile so we had to copiously irrigate. I examined the subhepatic space. There was no evidence of any bleeding or any bile leak . I examined all 4 quadrants. There was no evidence of any bowel injury I re-examined the subhepatic space and this remained hemostatic. I therefore desufflated through the port sites. I removed all ports under vision with the laparoscope. I removed the umbilical port last. The fascia of the umbilical incision was closed with a [id number] Polysorb 0 stitch. Skin closure was achieved on all incisions using Polysorb 4-0 subcuticular running sutures. All incisions were infiltrated with Marcaine 0.5% for postop analgesia. Steri-Strips and dressings were applied. The procedure was completed. The patient tolerated the procedure well. There were no immediate complications. Initial and final counts of sponges and instruments were correct. Estimated blood loss was about 50 cc The patient was extubated without difficulty and transferred to the recovery room with stable vital signs.
[2024-06-09 14:59] VITALS: BP 151/99; PULSE 95; RESP 18; TEMP 36.4; O2SAT 99
[2024-06-09 15:04] VITALS: BP 159/97; PULSE 94; RESP 18; O2SAT 98
[2024-06-09 15:13] VITALS: BP 143/88; PULSE 90; RESP 18
[2024-06-09 15:30] VITALS: BP 126/82; PULSE 74; RESP 20; O2SAT 96
[2024-06-09 15:45] VITALS: BP 127/86; PULSE 63; RESP 18; TEMP 36.4; O2SAT 96
== END 2024-06-09 16:03 | disposition home or self-care (01) ==
PROVIDERS: PCP Internal Medicine; Visit Provider Surgery
PROC: 0FT44ZZ Resection of Gallbladder, Percutaneous Endoscopic Approach (ICD-10-PCS; CPT 47562; principal; 2024-06-09 12:50)
DX: K80.10 Calculus of gallbladder with chronic cholecystitis without obstruction (principal); G71.00 Muscular dystrophy, unspecified; I45.6 Pre-excitation syndrome; M54.9 Dorsalgia, unspecified; G89.29 Other chronic pain; J44.9 Chronic obstructive pulmonary disease, unspecified; I10 Essential (primary) hypertension; F32.A Depression, unspecified; G47.33 Obstructive sleep apnea (adult) (pediatric); R06.02 Shortness of breath; R26.2 Difficulty in walking, not elsewhere classified; R20.0 Anesthesia of skin; R20.2 Paresthesia of skin; E66.01 Morbid (severe) obesity due to excess calories; Z68.41 Body mass index [BMI] 40.0-44.9, adult; Z99.89 Dependence on other enabling machines and devices; F11.99 Opioid use, unspecified with unspecified opioid-induced disorder; Z88.5 Allergy status to narcotic agent; Z88.6 Allergy status to analgesic agent; Z87.891 Personal history of nicotine dependence; Z98.890 Other specified postprocedural states
CPT/HCPCS: 47562; 88304; J0131; J1100; J1596; J1885; J2250; J2405; J2704; J2795; J3010

== ENCOUNTER → 2024-06-09 10:24 | Outpatient (BNV) | payer OTHER, SELFPAY | PROVIDERS: PCP Internal Medicine; Visit Provider Surgery | DX: K80.10 Calculus of gallbladder with chronic cholecystitis without obstruction (principal) | CPT/HCPCS: 47562 ==

== ENCOUNTER 2024-08-21 15:34 | Inpatient (IN) | payer OTHER, SELFPAY ==
--- NOTE | 2024-08-21 15:42 | MHC.CARE ---
Skylar from [place] [employer] Co-response brought in PT with EMS secondary to Pt taking a video of himself intentionally overdosing on Lorazepam and sending it to his . Pt reportedly called Cher JESSICA earlier in the day stating that someone was threatening him with a gun. Pt reportedly also sent a video of himself taking pills to his last week however the video was not saved and [facility]'s disposition was current providers. Pt is reportedly under the influence of alcohol and cocaine and did admit to taking the pills when [facility] and [facility] arrived to his home. Pt is endorsing SI and stating he does not want to live to [facility]. [facility]'s disposition is [facility] and they will send the assessment.
[2024-08-21 15:43] VITALS: BP 160/98; PULSE 111; O2SAT 99
[2024-08-21 15:50] VITALS: BP 183/94; PULSE 115; RESP 22; TEMP 36.5; O2SAT 99; BMI 43.2
--- NOTE | 2024-08-21 16:03 | ED_ITS ---
HPI - Psych General Chief Complaint: Psychiatric Symptoms Stated Complaint: SI WITH PLAN ETOH Time Seen by Provider: 08/21/24 15:59 Source: patient, EMS and old records reviewed Mode of arrival: EMS Limitations: no limitations History of Present Illness ED Provider: ALYSSA OSORIO Narrative: 38 yo male with PMH of GERD, HTN, GABRIEL on CPAP, HLD, WPW, substance abuse disorder, ETOH abuse here with c/o SI and depression with ETOH use after recent life stressors including loss of brother, girlfriend, job. He has plans to overdose. Today went to [email or web address] and laid on ground for 3 hours thought about taking motrin but spit it out. He denies trauma, falls, actual ingestion. He reports depression and SI. MD complaint: suicidal ideation, feels depressed and alcohol abuse Onset (ago): week(s) Duration: getting worse History of same: Yes Relieving factors: none Exacerbating factors: alcohol Context: recent alcohol abuse and significant life stressor Associated psychiatric symptoms: depression and suicidal ideation Associated symptoms: denies other symptoms Treatments prior to arrival: none If self harm: admits thoughts of self harm and has plan Related Data Home Medications ?Medication ?Instructions ?Recorded ?Confirmed albuterol sulfate 90 mcg/actuation 90 mcg inhalation Q4H PRN 08/20/22 08/21/24 aerosol inhaler Shortness Of Breath duloxetine 60 mg capsule,delayed 60 mg PO DAILY 05/18/24 08/21/24 release ergocalciferol (vitamin D2) 1,250 1,250 mcg PO QWEEK 05/18/24 08/21/24 mcg (50,000 unit) capsule (Vitamin D2) lisinopril 20 mg tablet 10 mg PO DAILY 05/18/24 08/21/24 ropinirole 2 mg tablet 6 mg PO BEDTIME 05/18/24 08/21/24 tizanidine 2 mg capsule 2 mg PO TID PRN Pain 05/18/24 08/21/24 trazodone 50 mg tablet 50 mg PO BEDTIME 05/18/24 08/21/24 ipratropium 20 mcg-albuterol 100 1 puff inhalation QID 06/03/24 08/21/24 mcg/actuation mist for inhalation (Combivent Respimat) lorazepam 1 mg tablet 1 mg PO BID PRN anxiety 06/03/24 08/21/24 duloxetine 30 mg capsule,delayed 30 mg PO QAM 08/21/24 08/21/24 release Previous Rx's ?Medication ?Instructions ?Recorded oxycodone-acetaminophen 5 mg-325 1 tab PO Q4-6H PRN pain #25 tabs 06/09/24 mg tablet (Percocet) Allergies Allergy/AdvReac Type Severity Reaction Status Date / Time baclofen Allergy Unknown ITCH, Verified 08/21/24 15:53 Dizziness hydrocodone [From Vicodin] Allergy Unknown Itching Verified 08/21/24 15:53 naproxen Allergy Unknown Unknown Verified 08/21/24 15:53 tramadol [TRAMADOL] Allergy Unknown ITCH Verified 08/21/24 15:53 Review of Systems 2 Review of Systems: Constitutional : No Fever, No Chills ENT/Mouth : No Ear Pain, No Nasal Congestion, No sore throat Eyes: No Eye Pain, No Swelling, No Redness Cardiovascular : No Chest Pain, No SOB Respiratory : No Cough, No Sputum, No Dyspnea Gastrointestinal : No Nausea, No Vomiting, No Diarrhea, No Hematochezia, No Melena Genitourinary : No Dysuria, No Urinary Frequency, No Hematuria Musculoskeletal : No Myalgias Skin : No Skin Lesions, No rash Neuro : No Weakness, No Numbness, No Paresthesias, No Dizziness, No Headache Psych : positive Anxiety, positive Depression, positive SI no HI All other systems reviewed and are negative PMFSH Past Medical History Attestation statement: The following information was validated with the patient. Source: old records reviewed Medical History Walker as ambulation aid Quit smoking (~04/2023) Elevated LFTs RLS (restless legs syndrome) Chronic pain syndrome Insomnia Morbid obesity Gallstones Carpal tunnel syndrome Right hip pain Numbness and tingling in both hands Scoliosis Back pain Hyperlipidemia GERD (gastroesophageal reflux disease) HTN (hypertension) GABRIEL on CPAP Hypoxemia Tobacco use disorder Opioid use disorder WPW (Qdnvw-Dxnljarwd-Epapp syndrome) Muscular dystrophy Surgical History History of laparoscopic cholecystectomy (~06/09/24) H/O cardiac radiofrequency ablation (~2009) Family History Family History Mother Hypotension Muscular dystrophy Father Heart disease Social History Social History Household Members: Family Housing: House Are you a primary care coordination manager to a significant other at home: No Do you presently have visiting nurse or other home services: No Unable to assess alcohol history related to: Unknown Alcohol intake: current Alcohol intake frequency: a few times a week Patient Tobacco Use Status: Former Tobacco user Tobacco use type: Cigarette Cigarette Packs Per Day: 1 Years Smoked: 20 Smoked in Last 30 Days: No e-Cigarette/Vaping Use: Never Used Use of substances other than those prescribed or required for medical reasons: No Substance Use Type: Marijuana Advance Directives: No Advance Directives Information Provided: Yes service: No Physical Exam 2 Vital Signs: Vital Signs: Last Vital Signs Temp 98 F 08/21/24 17:36 Pulse 88 08/21/24 17:36 Resp 18 08/21/24 17:36 BP 140/92 H 08/21/24 17:36 Pulse Ox 97 08/21/24 17:36 O2 Del Method Room Air 08/21/24 17:36 BMI result Body Mass Index 43.2 Appearance: Alert. Oriented X3. No acute distress. Eyes: Pupils equal, round and reactive to light. ENT: Pharynx normal. Neck: Normal inspection. Neck supple. CVS: Normal heart rate and rhythm. Pulses normal. Respiratory: No respiratory distress. Breath sounds normal. Abdomen: Soft and nontender. Skin: Skin warm and dry. Normal skin color. Normal skin turgor. Extremities: No lower extremity edema. No calf ttp Neuro: Oriented X 3. No motor deficit. No sensory deficit. CN2-12 intact Course Course Course Narrative: observation care revealed that the patient does meet psychiatric necessity for hospitalization. final disposition discussed with the patient. The patient completed observation care at 947pm Medications Administered Generic Name Dose Route Start Last Admin Trade Name Freq PRN Reason Stop Dose Admin Lorazepam 2 mg 08/21/24 16:11 08/21/24 17:43 Lorazepam 1 Mg Tablet PO 2 mg Q3H PRN Administration Alcohol Withdrawal Ropinirole HCl 6 mg 08/21/24 21:00 08/21/24 21:44 Ropinirole Hcl 2 Mg Tablet PO 6 mg BEDTIME FABIO Administration Trazodone HCl 50 mg 08/21/24 21:00 08/21/24 21:48 Trazodone Hcl 50 Mg Tablet PO 50 mg BEDTIME FABIO Administration Discontinued Medications Generic Name Dose Route Start Last Admin Trade Name Ivone PRN Reason Stop Dose Admin Duloxetine HCl 30 mg 08/21/24 19:45 08/21/24 21:25 Duloxetine Hcl 30 Mg Capsule.Dr [place] Not Given DAILY FABIO Medical Decision Making Medical Decision Making [facility] Narrative: 38 yo male with PMH of GERD, HTN, GABRIEL on CPAP, HLD, WPW, substance abuse disorder, ETOH abuse here with c/o SI and depression along with recent ETOH abuse - denies hx of withdrawal seizures will need labs, EKG given WPW hx, tox screens, PRN ativan and CIWA will refer to CARE team. Differential Diagnosis Differential Diagnoses: The differential diagnosis associated with the presentation includes ETOH abuse, depression, SI Admission/Observation Consideration of admission/observation: Escalation of care including admission/observation considered CIWA and PRN ativan ordered physician observation started at 424pm pending CARE team Consult Healthcare Provider Management of the patient was discussed with: Behavioral Health Provider Lab Data [facility] Lab Attestation statement: I reviewed the patient's lab results. 08/21/24 17:09 08/21/24 17:09 Labs: Lab Results 08/21/24 08/21/24 08/21/24 Range/Units 16:15 16:18 17:09 WBC 7.1 (4.8-10.8) X10*3/uL RBC 4.74 (4.60-5.80) X10*6/uL Hgb 15.3 (14.0-18.0) g/dl Hct 44.2 (42.0-52.0) % MCV 93.2 (80.0-98.0) fL MCH 32.3 (27.0-33.0) pg MCHC 34.6 (31.0-36.0) g/dl RDW 12.9 (11.0-16.0) % Plt Count 253 (160-400) X10*3/uL MPV 10.5 (9.4-12.4) fL Immature Gran % (Auto) 0.1 (0.0-0.4) % Neut % (Auto) 58.8 (45-73) % Lymph % (Auto) 29.7 (20-40) % [place] % (Auto) 8.7 (2-11) % Eos % (Auto) 2.4 (0-4) % Baso % (Auto) 0.3 (0-2) % Lymph # (Auto) 2.1 (1.2-4.9) X10*3/uL [place] # (Auto) 0.6 (0.1-1.2) X10*3/uL Eos # (Auto) 0.2 (0.0-0.4) X10*3/uL Baso # (Auto) 0.0 (0.0-0.2) X10*3/uL Abs Immat Gran (auto) 0.01 (0.00-0.03) X10*3/uL Absolute Neuts (auto) 4.2 (2.0-8.3) x10*3/uL Absolute Nucleated RBC 0.000 (0.0-0.012) X10*3/uL Nucleated RBC % (auto) 0.0 (0.0-0.2) /100WBC Sodium 145 (135-145) mmol/L Potassium 3.5 (3.3-5.1) mmol/L Chloride 108 (96-108) mmol/L Carbon Dioxide 22 (22-29) mmol/L Anion Gap 19 (12-20) BUN 7 L (9-16) mg/dL Creatinine 0.63 (0.5-1.4) mg/dL Estim Creat Clear Calc 201.6 Estimated GFR > 60 Random Glucose 102 (60-115) mg/dL Calcium 9.4 (8.4-10.2) mg/dL Total Bilirubin 1.1 H (0.0-1.0) mg/dL AST 79 H (5-37) U/L ALT 96 H (0-40) U/L Alkaline Phosphatase 86 (39-117) U/L Total Creatine Kinase 256 H (38-174) U/L Total Protein 7.3 (6.5-8.0) g/dL Albumin 4.1 (3.5-5.0) g/dL Urine Color Dark Yellow Urine Appearance Cloudy Urine pH 5.5 (5.0-9.0) Ur Specific [place] >= 1.030 H (1.005-1.025) Urine Protein 30 (1+) H (Neg-Trace) mg/dL Urine Glucose (UA) 500 H (Negative) mg/dL Urine Ketones Trace (Negative) mg/dL Urine Blood Negative (Negative) Urine Nitrite Negative (Negative) Ur Leukocyte Esterase Trace H (Negative) Urine RBC 0-2 (0-2) /HPF Urine WBC 6-10 H (0-5) /HPF Ur Squamous Epith Cells 11-20 (0-2) /HPF Urine Bacteria Trace (None Seen) Hyaline Casts 6-10 (0-2) /LPF Salicylates < 5.0 L (15-30) mg/dL Urine Opiates Screen Not Detected (Not Detect) Ur Buprenorphine Scrn Not Detected (Not Detect) ng/mL Ur Oxycodone Screen Not Detected (Not Detect) ng/mL Urine Methadone Screen Not Detected (Not Detect) ng/mL Urine Fentanyl Screen Not Detected (Not Detect) Acetaminophen < 3 (<30) mcg/mL Ur Barbiturates Screen Not Detected (Not Detect) Ur Phencyclidine Scrn Not Detected (Not Detect) Ur Amphetamines Screen Not Detected (Not Detect) U Benzodiazepines Scrn Not Detected (Not Detect) Urine Cocaine Screen POSITIVE H (Not Detect) U Marijuana (THC) Screen Not Detected (Not Detect) Ethyl Alcohol 12 mg/dL Independent Interpretation I performed an independent interpretation of an: EKG Interpretation: Rate: 81 Rhythm: NSR [place]: left Normal P waves. Normal FABIOLA. Normal QRS complex. ST T wave : nonspecific ST T wave changes inf leads qTC:453 prior studies: no acute ischemia The study has been interpreted contemporaneously by me. . Independent Historian Clinical information obtained from an independent historian. History obtained from or confirmed by: EMS External Record Review External record reviewed: Inpatient record Social Determinants Patient?s care significantly limited by Social Determinants of Health including: Problems related to primary support group Discharge Plan Discharge Clinical Impression: Suicidal ideation, Alcohol abuse Patient Disposition: Admitted As Inpatient Interventions: [place]-Suicide Risk Severity Scale Last Done: 08/21/24 17:36
--- NOTE | 2024-08-21 16:03 | ECG_ITS ---
Test Reason : QTC Blood Pressure : / mmHG Vent. Rate : 081 BPM Atrial Rate : 081 BPM P-R Int : 140 ms QRS Dur : 084 ms QT Int : 390 ms P-R-T Axes : 062 019 -20 degrees QTc Int : 453 ms Normal sinus rhythm Low voltage QRS Possible Inferior infarct (cited on or before 19-SEP-2023) Cannot rule out Anterior infarct (cited on or before 31-JUL-2023) Abnormal ECG When compared with ECG of 07-MAY-2024 16:34, Nonspecific T wave abnormality no longer evident in Lateral leads Referred By: Silvina Calvo Electronically Signed By:PB RUSHING
[2024-08-21 16:29] LABS: Appearance Urine Cloudy; Color Urine Dark Yellow; Glucose Urine UA 500 mg/dL (Negative); Leukocyte Esterase Urine Trace (Negative); Nitrite Urine Negative (Negative); PH 5.5 (5.0-9.0); Specific Gravity - Urine >= 1.030 (1.005-1.025); UMIC TRIGGER UACC YES; Urine Blood Negative (Negative); Urine Ketones Trace mg/dL (Negative); Urine Protein 30 (1+) mg/dL (Neg-Trace)
[2024-08-21 16:42] LABS: Amphetamine Screen Urine Not Detected (Not Detect); Barbiturates, Urine Not Detected (Not Detect); Benzodiazepines Screen Urine Not Detected (Not Detect); Buprenorphine Scr Not Detected (Not Detect); Cannabinoid Screen Urine Not Detected (Not Detect); Cocaine Screen Urine POSITIVE (Not Detect); Fentanyl, urine Not Detected (Not Detect); Methadone Screen, Urine Not Detected (Not Detect); Opiate Screen Urine Not Detected (Not Detect); Oxycodone Screen Urine Not Detected (Not Detect); Phencyclidine Screen Urine Not Detected (Not Detect)
[2024-08-21 17:14] LABS: MANUAL DIFF FLAG NO
[2024-08-21 17:16] LABS: Basophils Percent Auto 0.3 % (0-2); Eosinophils Absolute Auto 0.2 X10*3/uL (0.0-0.4); Eosinophils Percent Auto 2.4 % (0-4); Hematocrit 44.2 % (42.0-52.0); Hemoglobin 15.3 g/dl (14.0-18.0); Imm Gran Abs Auto 0.01 X10*3/uL (0.00-0.03); Imm Gran Pct Auto 0.1 % (0.0-0.4); Lymphocytes Absolute Auto 2.1 X10*3/uL (1.2-4.9); Lymphocytes Percent Auto 29.7 % (20-40); Mean Corpuscular HGB Conc 34.6 g/dl (31.0-36.0); Mean Corpuscular Hemoglobin 32.3 pg (27.0-33.0); Mean Corpuscular Volume 93.2 fL (80.0-98.0); Mean Platelet Volume 10.5 fL (9.4-12.4); Monocytes Absolute Auto 0.6 X10*3/uL (0.1-1.2); Monocytes Percent Auto 8.7 % (2-11); Neutrophils Absolute Auto 4.2 x10*3/uL (2.0-8.3); Neutrophils Percent Auto 58.8 % (45-73); Platelet Count 253 X10*3/uL (160-400); Red Blood Count 4.74 X10*6/uL (4.60-5.80); Red Cell Distribution Width 12.9 % (11.0-16.0); White Blood Count 7.1 X10*3/uL (4.8-10.8)
[2024-08-21 17:28] LABS: Acetaminophen LAB < 3 mcg/mL (<30); Salicylate < 5.0 mg/dL (15-30)
[2024-08-21 17:29] LABS: Alanine Aminotransferase 96 U/L (0-40); Albumin Level 4.1 g/dL (3.5-5.0); Alkaline Phosphatase 86 U/L (39-117); Anion Gap 19 (12-20); Aspartate Amino Transferase 79 U/L (5-37); Bilirubin Total 1.1 mg/dL (0.0-1.0); Blood Urea Nitrogen 7 mg/dL (9-16); Calcium 9.4 mg/dL (8.4-10.2); Carbon Dioxide 22 mmol/L (22-29); Chloride 108 mmol/L (96-108); Creatinine Clr Calc Pharmacy 201.6; Estimated Glomerular Filt Rate > 60; Ethanol 12 mg/dL; Glucose Random 102 mg/dL (60-115); Potassium 3.5 mmol/L (3.3-5.1); Sodium 145 mmol/L (135-145); Total Protein 7.3 g/dL (6.5-8.0)
[2024-08-21 17:36] VITALS: BP 140/92; PULSE 88; RESP 18; TEMP 36.6; O2SAT 97
[2024-08-21] MEDS: LORazepam 1 MG TABLET 2 MG PO (17:43)
--- NOTE | 2024-08-21 18:26 | PC.NURSE ---
In pod. Eating and drinking. Steady on feet. Able to ambulate and make needs known. Awaits CARE Team.
[2024-08-21 19:01] LABS: Bacteria Urine Trace (None Seen); RBC Urine 0-2 /HPF (0-2); UACC Culture Trigger YES
[2024-08-21] MEDS: rOPINIRole HCL 2 MG TABLET 6 MG PO (21:44)
[2024-08-21] MEDS: traZODone HCL 50 MG TABLET PO (21:48)
[2024-08-21 22:00] VITALS: BP 143/95; PULSE 106; RESP 18; TEMP 36.4; O2SAT 97
[2024-08-22] VITALS: BMI 39.8
--- NOTE | 2024-08-22 00:14 | PC.RT ---
Paged/[place] Texted MD about discontinuing the Duoneb as pt is refusing and does not take at home. Home respiratory medications are only Albuterol MDI Q4PRN. Pt stated he also wears Auto CPAP 17-5 nocturnal, RN stated they do not have a sitter tonight but can start tomorrow evening. paged to order Auto CPAP.
[2024-08-22 04:00] VITALS: BP 146/95; PULSE 98; RESP 18
--- NOTE | 2024-08-22 06:47 | PC.ADMIT ---
Pt is a 38 yo cisgender male who arrives from [facility] for SI. Pt reports drinking 1 pint of alcohol after 18 years sobriety, lying on the ground outside for multiple hours contemplating suicide, at one point put large handful of pills in mouth changed mind and spat out all pills, then self presented to ER. Pt has a hx of Alcohol use disorder, opioid use, Facioscapulohumeral (FSH) Muscular Dystrophy, Ypdpo-Rimtyhvoi-Trqxv syndrome, hyperlipidemia, GERD, HTN, Obstructive sleep apnea. Pt also reports weekly cocaine use. Pt indicates recent stressors including of 39yo brother 1 year ago to COPD, followed by pt's extended ICU stay for complicated pneumonia, loss of job, and GF/fiance of 22 years leaving pt. Pt states I feel like God just hates me endorses ongoing depression and vague SI. Pt is cooperative though tearful during interview, skin check unremarkable, VSS. Pt reports no history of falls but uses walker for extended walking, difficulty standing from sitting at times. Pt also reports sleep apnea for which pt uses CPAP, assessed by respiratory therapy on unit.
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
[2024-08-22 08:29] VITALS: BP 124/70; PULSE 77; TEMP 36.4; O2SAT 98
[2024-08-22 08:30] LABS: Estimated Average Glucose 111 mg/dL; Hemoglobin A1C 145.3124 umol/L; Hemoglobin A1c % 5.5 % (<6.0); Total Hemoglobin (HGBA1C) 3974.5179 umol/L
[2024-08-22 08:56] LABS: Alanine Aminotransferase 78 U/L (0-40); Albumin Level 3.8 g/dL (3.5-5.0); Alkaline Phosphatase 92 U/L (39-117); Anion Gap 14 (12-20); Aspartate Amino Transferase 67 U/L (5-37); Bilirubin Total 0.9 mg/dL (0.0-1.0); Blood Urea Nitrogen 12 mg/dL (9-16); Calcium 9.5 mg/dL (8.4-10.2); Carbon Dioxide 29 mmol/L (22-29); Chloride 104 mmol/L (96-108); Cholesterol 159 mg/dL (<200); Creatinine Clr Calc Pharmacy 171.2; Estimated Glomerular Filt Rate > 60; Glucose Fasting 112 mg/dL (60-99); HDL Cholesterol 40 mg/dL (>40); LDL Cholesterol Calculated 85 mg/dL (<100); Potassium 4.1 mmol/L (3.3-5.1); Sodium 143 mmol/L (135-145); TSH reflex Free T4 1.09 uIU/mL (0.32-4.0); Total Protein 7.1 g/dL (6.5-8.0); Triglycerides 173 mg/dL (<150)
[2024-08-22] MEDS: lisinopriL 10 MG TABLET PO (09:34)
[2024-08-22] MEDS: DULoxetine HCl 60 MG CAPSULE.DR PO (09:34)
[2024-08-22] MEDS: DULoxetine HCl 30 MG CAPSULE.DR PO (09:34)
[2024-08-22] MEDS: Thiamine HCL 100 MG TABLET PO (09:35)
[2024-08-22] MEDS: Folic Acid 1 MG TABLET PO (09:35)
[2024-08-22] MEDS: LORazepam 1 MG TABLET PO (10:17)
[2024-08-22] MEDS: TiZANidine HCL 4 MG TABLET 2 MG PO ×2 (15:16→21:25)
[2024-08-22 20:00] VITALS: BP 130/80; PULSE 77; RESP 18; TEMP 536.8; TEMP 998.2; O2SAT 96
[2024-08-22] MEDS: rOPINIRole HCL 2 MG TABLET 6 MG PO (21:26)
[2024-08-22] MEDS: cloNIDine HCL 0.1 MG TABLET PO (21:27)
[2024-08-22] MEDS: traZODone HCL 50 MG TABLET PO (21:27)
[2024-08-23 00:08] VITALS: PULSE 89; RESP 16; O2SAT 97
[2024-08-23 01:44] VITALS: PULSE 86; O2SAT 97
[2024-08-23] MEDS: Loperamide HCl 2 MG CAPSULE 4 MG PO (02:34)
[2024-08-23 08:04] VITALS: BP 143/77; PULSE 70; TEMP 36.6; O2SAT 99
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
[2024-08-23 09:20] VITALS: BP 138/76
[2024-08-23] MEDS: DULoxetine HCl 30 MG CAPSULE.DR PO (09:20)
[2024-08-23] MEDS: lisinopriL 10 MG TABLET PO (09:20)
[2024-08-23] MEDS: DULoxetine HCl 60 MG CAPSULE.DR PO (09:21)
[2024-08-23] MEDS: Thiamine HCL 100 MG TABLET PO (09:21)
[2024-08-23] MEDS: buPROPion HCl XL 150 MG TAB.ER.24H PO (09:21)
[2024-08-23] MEDS: Folic Acid 1 MG TABLET PO (09:21)
[2024-08-23] MEDS: Simethicone 80 MG TAB.CHEW PO (13:11)
[2024-08-23] MEDS: hydrOXYzine HCL 25 MG TABLET PO ×2 (13:11→21:36)
[2024-08-23] MEDS: Loperamide HCl 2 MG CAPSULE PO (13:11)
[2024-08-23] MEDS: Ergocalciferol (Vitamin D2) 1,250 MCG CAPSULE 1250 MCG PO (14:36)
[2024-08-23 20:00] VITALS: BP 123/82; PULSE 104; TEMP 36.3; O2SAT 99
[2024-08-23 21:32] VITALS: BP 123/82
[2024-08-23] MEDS: cloNIDine HCL 0.1 MG TABLET PO (21:32)
[2024-08-23] MEDS: traZODone HCL 50 MG TABLET PO (21:33)
[2024-08-23] MEDS: TiZANidine HCL 4 MG TABLET 2 MG PO (21:33)
[2024-08-23] MEDS: rOPINIRole HCL 2 MG TABLET 6 MG PO (21:33)
[2024-08-23] MEDS: OLANZapine 5 MG TABLET PO (23:22)
[2024-08-24 00:39] VITALS: BP 118/80
[2024-08-24] MEDS: cloNIDine HCL 0.1 MG TABLET PO ×2 (00:39→21:48)
[2024-08-24] MEDS: hydrOXYzine HCL 50 MG TABLET PO (00:39)
[2024-08-24] MEDS: QUEtiapine Fumarate 25 MG TABLET PO ×2 (00:39→21:50)
[2024-08-24] MEDS: rOPINIRole HCL 2 MG TABLET PO ×2 (00:39→22:55)
[2024-08-24 00:45] VITALS: PULSE 90; O2SAT 96
--- NOTE | 2024-08-24 00:49 | PC.NURSE ---
At approximately 2129, this patient requested his HS medications. This telegraphic typewriter installer administered same, whereupon the patient stated I should have percocet for my pain, and Ativan for my anxiety. This telegraphic typewriter installer replied that these medications were not ordered. Patient stated I don't understand. They gave them to me at [facility]. They should be in there, too. This telegraphic typewriter installer replied that I would reach out to the friction welding machine operator to enquire, and offered some PRN medications for anxiety and muscle spasms, which the patient accepted. At 2229, the patient reported that his pain and anxiety had continued unabated, and that he required 2 more miligrams of ropinerole for restless leg syndrome. At approximately 0, new orders were placed by provider Dr Flores. When this telegraphic typewriter installer relayed the new orders to the patient, the patient stated This is bullshit. I got all these at [facility]. I get these at home. Can't they see that? I can't sleep without those. This telegraphic typewriter installer was apologetic, and offered the new PRN orders, which the patient accepted. He appeared mollified at the time, relaxing somewhat and stating my friend takes seroquel. I guess these work pretty good. I think this'll help. The patient is currently having a snack and states I'll go to bed in about 20 minutes.
[2024-08-24 08:00] VITALS: BP 132/60; PULSE 81; RESP 16; TEMP 36.6; O2SAT 98
[2024-08-24] MEDS: lisinopriL 10 MG TABLET PO (08:54)
[2024-08-24] MEDS: DULoxetine HCl 60 MG CAPSULE.DR PO (08:54)
[2024-08-24] MEDS: buPROPion HCl XL 300 MG TAB.ER.24H PO (08:54)
[2024-08-24] MEDS: Thiamine HCL 100 MG TABLET PO (08:54)
[2024-08-24] MEDS: DULoxetine HCl 30 MG CAPSULE.DR PO (08:55)
[2024-08-24] MEDS: Folic Acid 1 MG TABLET PO (08:55)
[2024-08-24] MEDS: LORazepam 1 MG TABLET PO ×2 (14:20→21:48)
[2024-08-24] MEDS: TiZANidine HCL 4 MG TABLET 2 MG PO ×2 (14:39→21:46)
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
--- NOTE | 2024-08-24 17:16 | PC.RT ---
Pt has q6 svn currently ordered. Pt declines as they mke him very 'jittery' per Nurse. Pt has mdi at home, gorge. RT reccomend order albuterol mdi 2p prn. Nurse aware.
[2024-08-24 20:00] VITALS: BP 106/72; PULSE 99; TEMP 36.8; O2SAT 97
[2024-08-24 21:48] VITALS: BP 106/72
[2024-08-24] MEDS: rOPINIRole HCL 2 MG TABLET 6 MG PO (21:48)
[2024-08-24] MEDS: traZODone HCL 50 MG TABLET PO (21:48)
[2024-08-25 08:00] VITALS: BP 115/60; PULSE 76; RESP 14; TEMP 36.3; O2SAT 96
[2024-08-25] MEDS: Thiamine HCL 100 MG TABLET PO (09:20)
[2024-08-25] MEDS: buPROPion HCl XL 300 MG TAB.ER.24H PO (09:20)
[2024-08-25] MEDS: Folic Acid 1 MG TABLET PO (09:20)
[2024-08-25] MEDS: DULoxetine HCl 60 MG CAPSULE.DR PO (09:20)
[2024-08-25] MEDS: LORazepam 1 MG TABLET PO (09:20)
[2024-08-25] MEDS: DULoxetine HCl 30 MG CAPSULE.DR PO (09:20)
[2024-08-25] MEDS: lisinopriL 10 MG TABLET PO (09:20)
--- NOTE | 2024-08-25 09:53 | PM.PSYDC ---
DS: Providers Provider Date of Service: 08/25/24 Date of admission: 08/21/24 20:15 Date of discharge: 08/25/24 Primary care physician: Unknown Physician Admitting clinician: Sumanth Flores Attending physician on admission: Sumanth Flores Attending physician on discharge: Ac Izquierdo Discharging clinician: Radhika Landaverde DS: Diagnosis Discharge Diagnosis (1) MDD (major depressive disorder), recurrent severe, without psychosis: Status: Acute (2) Fasciohumeroscapular dystrophy: Status: Acute (3) Hyperlipidemia: Status: Acute (4) WPW (Dmjnc-Akzukjrjz-Nukfj syndrome): Status: Acute (5) HTN (hypertension): Status: Acute (6) Carpal tunnel syndrome: Status: Acute (7) GABRIEL on CPAP: Status: Acute (8) GERD (gastroesophageal reflux disease): Status: Acute DS: Medications Discharge Medications Home Medications: Home Medications ?Medication ?Instructions ?Recorded ?Confirmed albuterol sulfate 90 mcg/actuation 90 mcg inhalation Q4H PRN 08/20/22 08/21/24 aerosol inhaler Shortness Of Breath duloxetine 60 mg capsule,delayed 60 mg PO DAILY 05/18/24 08/21/24 release ergocalciferol (vitamin D2) 1,250 1,250 mcg PO QWEEK 05/18/24 08/21/24 mcg (50,000 unit) capsule (Vitamin D2) lisinopril 20 mg tablet 10 mg PO DAILY 05/18/24 08/21/24 ropinirole 2 mg tablet 6 mg PO BEDTIME 05/18/24 08/21/24 tizanidine 2 mg capsule 2 mg PO TID PRN Pain 05/18/24 08/21/24 trazodone 50 mg tablet 50 mg PO BEDTIME 05/18/24 08/21/24 ipratropium 20 mcg-albuterol 100 1 puff inhalation QID 06/03/24 08/21/24 mcg/actuation mist for inhalation (Combivent Respimat) lorazepam 1 mg tablet 1 mg PO BID PRN anxiety 06/03/24 08/21/24 duloxetine 30 mg capsule,delayed 30 mg PO QAM 08/21/24 08/21/24 release Previous Rx's ?Medication ?Instructions ?Recorded oxycodone-acetaminophen 5 mg-325 1 tab PO Q4-6H PRN pain #25 tabs 06/09/24 mg tablet (Percocet) Mental Status Exam Mental Status Exam Patient Appearance: Appropriate Patient Orientation: Person, Place, Time and Situation Level of Consciousness: Alert Patient Behavior: Appropriate, Talkative and Good Eye Contact Mood Description: Apprehensive (identifies several stressors currently) Affect Description: Apprehensive Patient Cognition Impaired: No Ability to Follow Directions: Good Speech Pattern: Spontaneous Speech Memory Description: Intact Hallucinations: None Delusions: Not Present Thought Process: Goal Oriented Thought Content: positive for Goal Oriented Judgement: Good Data Data Completed and Pending Completed studies during hospitalization [Text1]: 08/21/24 08/21/24 08/21/24 16:15 16:18 17:09 WBC 7.1 RBC 4.74 Hgb 15.3 Hct 44.2 MCV 93.2 MCH 32.3 MCHC 34.6 RDW 12.9 Plt Count 253 MPV 10.5 Immature Gran % (Auto) 0.1 Neut % (Auto) 58.8 Lymph % (Auto) 29.7 [place] % (Auto) 8.7 Eos % (Auto) 2.4 Baso % (Auto) 0.3 Lymph # (Auto) 2.1 [place] # (Auto) 0.6 Eos # (Auto) 0.2 Baso # (Auto) 0.0 Abs Immat Gran (auto) 0.01 Absolute Neuts (auto) 4.2 Absolute Nucleated RBC 0.000 Nucleated RBC % (auto) 0.0 Sodium 145 Potassium 3.5 Chloride 108 Carbon Dioxide 22 Anion Gap 19 BUN 7 L Creatinine 0.63 Estim Creat Clear Calc 201.6 Estimated GFR > 60 Random Glucose 102 Fasting Glucose Estimat Average Glucose Hemoglobin A1c % Calcium 9.4 Total Bilirubin 1.1 H AST 79 H ALT 96 H Alkaline Phosphatase 86 Total Creatine Kinase 256 H Total Protein 7.3 Albumin 4.1 Triglycerides Cholesterol LDL Cholesterol, Calc HDL Cholesterol TSH Urine Color Dark Yellow Urine Appearance Cloudy Urine pH 5.5 Ur Specific Encinal >= 1.030 H Urine Protein 30 (1+) H Urine Glucose (UA) 500 H Urine Ketones Trace Urine Blood Negative Urine Nitrite Negative Ur Leukocyte Esterase Trace H Urine RBC 0-2 Urine WBC 6-10 H Ur Squamous Epith Cells 11-20 Urine Bacteria Trace Hyaline Casts 6-10 Salicylates < 5.0 L Urine Opiates Screen Not Detected Ur Buprenorphine Scrn Not Detected Ur Oxycodone Screen Not Detected Urine Methadone Screen Not Detected Urine Fentanyl Screen Not Detected Acetaminophen < 3 Ur Barbiturates Screen Not Detected Ur Phencyclidine Scrn Not Detected Ur Amphetamines Screen Not Detected U Benzodiazepines Scrn Not Detected Urine Cocaine Screen POSITIVE H U Marijuana (THC) Screen Not Detected Ethyl Alcohol 12 08/22/24 07:46 WBC RBC Hgb Hct MCV MCH MCHC RDW Plt Count MPV Immature Gran % (Auto) Neut % (Auto) Lymph % (Auto) [place] % (Auto) Eos % (Auto) Baso % (Auto) Lymph # (Auto) [place] # (Auto) Eos # (Auto) Baso # (Auto) Abs Immat Gran (auto) Absolute Neuts (auto) Absolute Nucleated RBC Nucleated RBC % (auto) Sodium 143 Potassium 4.1 Chloride 104 Carbon Dioxide 29 Anion Gap 14 BUN 12 Creatinine 0.71 Estim Creat Clear Calc 171.2 Estimated GFR > 60 Random Glucose Fasting Glucose 112 H Estimat Average Glucose 111 Hemoglobin A1c % 5.5 Calcium 9.5 Total Bilirubin 0.9 AST 67 H ALT 78 H Alkaline Phosphatase 92 Total Creatine Kinase Total Protein 7.1 Albumin 3.8 Triglycerides 173 H Cholesterol 159 LDL Cholesterol, Calc 85 HDL Cholesterol 40 L TSH 1.09 Urine Color Urine Appearance Urine pH Ur Specific Enc[place] Urine Protein Urine Glucose (UA) Urine Ketones Urine Blood Urine Nitrite Ur Leukocyte Esterase Urine RBC Urine WBC Ur Squamous Epith Cells Urine Bacteria Hyaline Casts Salicylates Urine Opiates Screen Ur Buprenorphine Scrn Ur Oxycodone Screen Urine Methadone Screen Urine Fentanyl Screen Acetaminophen Ur Barbiturates Screen Ur Phencyclidine Scrn Ur Amphetamines Screen U Benzodiazepines Scrn Urine Cocaine Screen U Marijuana (THC) Screen Ethyl Alcohol DS: Summary Hospital Course Hospital Course: Admission to adult psychiatry for an increase in sx of recurrent major depression with SI, and a brief relapse of alcohol and cocaine. 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 Reports on the anniversary of when he first met ex partner he relapsed on cocaine and alcohol, sent a video to her of him taking medications and was brought to the ER with EMS. Recently he had just had Duloxetine increased, but with little effect currently. Pt was admitted and Wellbutrin was added to his regime, which he reported was helpful. He was able to participate in the milieu, however asked to discharge to attend to a pending court date this week which he felt he could not miss without consequences. He will continue with out patient providers and agreed to continue treatment with [facility]. He reports when he learns what responsibility he has with the court he will make his intake appt to begin further treatment. He was welcomed to call/return as needed should symptoms increase. He denied current SI/HI/AH/VH. There were not sx of milana or psychosis and he did place a priority on current legal responsibilities that needed to be addressed before he could return for further care. Status at Discharge Functional status at discharge: independent ambulation Overall status at discharge: patient is progressing back to baseline Time Spent with Patient Time attestation: Total time managing care of this patient today ____ minutes. Time spent: Less than 30 minutes Discharge Plan Discharge Anticipated Discharge Date/Time: 08/25/24 12:00 Patient Disposition: Home, Self-Care Discharge Diagnosis: Recurrent Major Depression Alcohol Abuse Fasciohumeroscapular Dystrophy Thea- Parkinson White Syndrome Carpal Tunnel Syndrome Hyperlipidemia GERD HTN GABRIEL-CPAP Referrals: [facility]ication [facility] [Other] - 1 Week (Please call if you have not heard about your appointments by the end of the week ) [facility] (PHP) [Other] - 1 Week (Please call if you have not heard by the end of the week for an intake appointment ) Physician,Unknown J [Primary Care Provider] - 1 Week (Pt declined for [facility] to schedule follow up appointment with PCP. Pt to follow up with PCP after discharge. ) Discharge Medications: New clonidine HCl 0.1 mg Tablet 0.1 mg PO BEDTIME Qty: 15 1RF Protocol: Hold for SBP< HOLD for SBP < : 90 olanzapine 5 mg Tablet 5 mg PO TID PRN (Reason: agitation) Qty: 15 0RF folic acid 1 mg Tablet 1 mg PO DAILY Qty: 30 0RF bupropion HCl 300 mg Tablet Extended Release 24 Hr 300 mg PO DAILY Qty: 15 1RF thiamine mononitrate (vit B1) 100 mg Tablet 100 mg PO DAILY Qty: 30 0RF Continued Combivent Respimat 20-100 mcg/actuation mist 1 puff INHALATION QID lorazepam 1 mg tablet 1 mg PO BID PRN (Reason: anxiety) oxycodone-acetaminophen [Percocet] 5-325 mg tablet 1 tab PO Q4-6H PRN (Reason: pain) Qty: 25 0RF Rx Instructions: Partial Fill upon patient request. duloxetine 30 mg capsule,delayed release(DR/EC) 30 mg PO QAM Qty: 30 0RF duloxetine 60 mg capsule,delayed release(DR/EC) 60 mg PO DAILY Qty: 30 0RF albuterol sulfate 90 mcg/actuation HFA aerosol inhaler 90 mcg inhalation Q4H PRN (Reason: Shortness Of Breath) lisinopril 20 mg tablet 10 mg PO DAILY ergocalciferol (vitamin D2) [Vitamin D2] 1,250 mcg (50,000 unit) capsule 1,250 mcg PO QWEEK ropinirole 2 mg tablet 6 mg PO BEDTIME trazodone 50 mg tablet 50 mg PO BEDTIME tizanidine 2 mg capsule 2 mg PO TID PRN (Reason: Pain) Discharge Orders: Discharge Order (Routine); Ordered 08/25/24 Ordered By: Radhika Landaverde Diet: Advance to usual diet Activity on Discharge: As tolerated Stand Alone Forms: Patient Portal Discharge page, Community Support Print Language: Namibian Care Plan Goals: Mood and Behavioral Stabilization Health Concerns: Mood and Behavioral Stabilization Plan of Treatment: Attend scheduled appointments Take medications as directed Assessment: Denies SI/HI/AH/VH No overt sx of milana or psychosis. Pt requesting discharge, believes he has achieved maximum hospital benefit. Discharge Date/Time: 08/25/24 11:44
== END 2024-08-25 11:44 | disposition home or self-care (01) | DRG 751 ==
LOC: HO.ED 17:51 → HO.PM5 20:23
PROVIDERS: Admitting Provider Psychiatry & Neurology Psychiatry; Emergency Provider Emergency Medicine; Visit Provider Psychiatry & Neurology Psychiatry
DX: F33.2 Major depressive disorder, recurrent severe without psychotic features (principal); R45.851 Suicidal ideations; G71.02 Facioscapulohumeral muscular dystrophy; G47.33 Obstructive sleep apnea (adult) (pediatric); I45.6 Pre-excitation syndrome; E78.5 Hyperlipidemia, unspecified; I10 Essential (primary) hypertension; F10.10 Alcohol abuse, uncomplicated; K21.9 Gastro-esophageal reflux disease without esophagitis; J44.9 Chronic obstructive pulmonary disease, unspecified; Z87.891 Personal history of nicotine dependence; Z91.51 Personal history of suicidal behavior; Z63.4 Disappearance and death of family member; Z79.899 Other long term (current) drug therapy
CPT/HCPCS: 36415; 80053; 80061; 80143; 80179; 80307; 81001; 82550; 83036; 84443; 85025; 93005; 94660; 99285

== ENCOUNTER → 2024-08-21 16:03 | Outpatient (BNV) | payer MEDICAID, SELFPAY | PROVIDERS: Admitting Provider Psychiatry & Neurology Psychiatry; Emergency Provider Emergency Medicine; Visit Provider Internal Medicine | DX: R94.31 Abnormal electrocardiogram [ECG] [EKG] (principal) | CPT/HCPCS: 93010 ==

== ENCOUNTER → 2024-08-21 20:15 | Outpatient (BNV) | payer OTHER, SELFPAY | PROVIDERS: Admitting Provider Psychiatry & Neurology Psychiatry; Emergency Provider Emergency Medicine; Visit Provider Psychiatry & Neurology Psychiatry | DX: F33.2 Major depressive disorder, recurrent severe without psychotic features (principal); G71.02 Facioscapulohumeral muscular dystrophy; E78.5 Hyperlipidemia, unspecified; I45.6 Pre-excitation syndrome | CPT/HCPCS: 99231; 99232 ==

== ENCOUNTER 2024-10-07 08:06 | Inpatient (IN) | payer OTHER, SELFPAY ==
[2024-10-07 08:19] VITALS: BP 185/86; PULSE 97; O2SAT 98
--- NOTE | 2024-10-07 08:20 | MHC.EDTECH ---
Patient changed over with the security, belongings in closet shelf #4, Urine and blood work completed, Patient resting quietly in his bed within call belt in reach.
--- NOTE | 2024-10-07 08:21 | ED_ITS ---
HPI - Psych General Chief Complaint: Psychiatric Symptoms Stated Complaint: SEC 12,CRISIS EVAL,CUFFED,PD ON BOARD PER EMS Time Seen by Provider: 10/07/24 08:08 Source: patient Mode of arrival: EMS Limitations: no limitations History of Present Illness HPI Narrative: This is a 38 years old the patient with a history of major depression, prior psych hospitalization, polysubstance abuse including alcohol and cocaine sent on a Section 12 because SI. He denies now to me. He stated that he does not feel suicidal at this time MD complaint: suicidal ideation Onset (ago): day(s) (1) Duration: changing over time History of same: Yes Exacerbating factors: none Associated psychiatric symptoms: depression and suicidal ideation Associated symptoms: denies other symptoms Treatments prior to arrival: none Related Data Home Medications ?Medication ?Instructions ?Recorded ?Confirmed albuterol sulfate 90 mcg/actuation 90 mcg inhalation Q4H PRN 08/20/22 10/07/24 aerosol inhaler Shortness Of Breath lisinopril 20 mg tablet 10 mg PO DAILY 05/18/24 10/07/24 ropinirole 2 mg tablet 6 mg PO BEDTIME 05/18/24 10/07/24 tizanidine 2 mg capsule 2 mg PO TID PRN Pain 05/18/24 10/07/24 trazodone 50 mg tablet 50 mg PO BEDTIME 05/18/24 10/07/24 ipratropium 20 mcg-albuterol 100 1 puff inhalation QID 06/03/24 10/07/24 mcg/actuation mist for inhalation (Combivent Respimat) lorazepam 1 mg tablet 1 mg PO BID PRN anxiety 06/03/24 10/07/24 Previous Rx's ?Medication ?Instructions ?Recorded bupropion HCl 300 mg 24 hr tablet, 300 mg PO DAILY #15 tabs 08/25/24 extended release clonidine HCl 0.1 mg tablet 0.1 mg PO BEDTIME #15 tabs 08/25/24 duloxetine 30 mg capsule,delayed 30 mg PO QAM #30 caps 08/25/24 release duloxetine 60 mg capsule,delayed 60 mg PO DAILY #30 caps 08/25/24 release folic acid 1 mg tablet 1 mg PO DAILY #30 tabs 08/25/24 olanzapine 5 mg tablet 5 mg PO TID PRN agitation #15 tabs 08/25/24 thiamine mononitrate (vit B1) 100 100 mg PO DAILY #30 tabs 08/25/24 mg tablet Allergies Allergy/AdvReac Type Severity Reaction Status Date / Time baclofen Allergy Unknown ITCH, Verified 10/07/24 08:31 Dizziness hydrocodone [From Vicodin] Allergy Unknown Itching Verified 10/07/24 08:31 naproxen Allergy Unknown Unknown Verified 10/07/24 08:31 tramadol [TRAMADOL] Allergy Unknown ITCH Verified 10/07/24 08:31 Review of Systems 2 Constitutional: Constitutional: Reports no additional constitutional complaints ENT: Reports system reviewed and no additional complaints, except as documented Psychiatric: Psychiatric: Reports as per [facility] Past Medical History Medical History MDD (major depressive disorder), recurrent severe, without psychosis Walker as ambulation aid Quit smoking (~04/2023) Elevated LFTs RLS (restless legs syndrome) Chronic pain syndrome Insomnia Morbid obesity Gallstones Carpal tunnel syndrome Right hip pain Numbness and tingling in both hands Scoliosis Back pain Hyperlipidemia GERD (gastroesophageal reflux disease) HTN (hypertension) GABRIEL on CPAP Hypoxemia Tobacco use disorder Opioid use disorder WPW (Gegln-Knbzdezvp-Fpeed syndrome) Muscular dystrophy Surgical History History of laparoscopic cholecystectomy (~06/09/24) H/O cardiac radiofrequency ablation (~2009) Family History Family History Mother Hypotension Muscular dystrophy Father Heart disease Social History Social History Household Members: Family Household Members Other:: Mother Housing: House Are you a primary healthcare economics consultant to a significant other at home: No Do you presently have visiting nurse or other home services: No Unable to assess alcohol history related to: Unknown Alcohol intake: current Alcohol intake frequency: holidays/special occasions only Patient Tobacco Use Status: Former Tobacco user Tobacco use type: Cigarette Cigarette Packs Per Day: 1 Years Smoked: 20 Smoked in Last 30 Days: No e-Cigarette/Vaping Use: Never Used Use of substances other than those prescribed or required for medical reasons: Yes Substance Use Type: Crack/Cocaine Substance Use Frequency: Occasionally Advance Directives: No Advance Directives Information Provided: Yes Do you have a plan to hurt others: Vague service: No Sexual orientation: Straight/Heterosexual Physical Exam 2 Vital Signs: Vital Signs: Last Vital Signs Temp 97.6 F 10/07/24 11:13 Pulse 87 10/07/24 11:13 Resp 20 10/07/24 11:13 BP 148/95 H 10/07/24 11:13 Pulse Ox 98 10/07/24 11:13 O2 Del Method Room Air 10/07/24 11:13 BMI result Body Mass Index 42.3 He looks well is not in distress Const: General: cooperative Nutritional Appearance: well nourished O rientation/consciousness: patient oriented x3 Limitations: no limitations HEENT: Head: Yes normal to inspection General nose exam: Normal external nose present Face and sinus: Yes normal facial exam Neck: Neck: Yes normal visual inspection Chest: Chest palpation & inspection: normal inspection of the chest Resp: Effort & Inspection: normal respiratory effort and able to speak in complete sentences Auscultation: clear to auscultation bilaterally Cardio: Jugular venous distension: no JVD Rate: regular rate Rhythm: r egular rhythm GI: Inspection: Yes normal to inspection Palpation (GI): Soft to palpation, not firm, nontender and no guarding Auscultation: normal bowel sounds Skin: General skin exam: no rashes or lesions noted and elasticity normal L esions: no lesions Rashes: no rashes Neuro: General: patient oriented x3 Course Reevaluation(s) Reevaluation #1: waiting for crisis eval Medications Administered Discontinued Medications Generic Name Dose Route Start Last Admin Trade Name Ivone PRSmiley Reason Stop Dose Admin Lorazepam 2 mg 10/07/24 13:53 10/07/24 14:17 Lorazepam 1 Mg Tablet PO 10/07/24 13:54 2 mg ONCE ONE Administration Olanzapine 5 mg 10/07/24 13:53 10/07/24 14:17 Olanzapine 5 Mg Tablet PO 10/07/24 13:54 5 mg ONCE ONE Administration Ropinirole HCl 2 mg 10/07/24 10:19 10/07/24 11:14 Ropinirole Hcl 2 Mg Tablet PO 10/07/24 10:20 2 mg ONCE ONE Administration Ropinirole HCl 2 mg 10/07/24 10:38 10/07/24 11:14 Ropinirole Hcl 2 Mg Tablet PO 10/07/24 10:39 2 mg ONCE ONE Administration Medical Decision Making Medical Decision Making [facility] Narrative: Patient presented to the emergency room complaining of depression on a Section 12 if we will get psych eval Differential Diagnosis Differential Diagnoses: The differential diagnosis associated with the presentation includes Major depression/anxiety/substance abuse Lab Data [facility] Lab Attestation statement: I reviewed the patient's lab results. 10/07/24 09:10 10/07/24 09:10 Labs: Lab Results 10/07/24 10/07/24 Range/Units 09:10 09:13 WBC 7.7 (4.8-10.8) X10*3/uL RBC 4.37 L (4.60-5.80) X10*6/uL Hgb 14.1 (14.0-18.0) g/dl Hct 41.4 L (42.0-52.0) % MCV 94.7 (80.0-98.0) fL MCH 32.3 (27.0-33.0) pg MCHC 34.1 (31.0-36.0) g/dl RDW 13.3 (11.0-16.0) % Plt Count 229 (160-400) X10*3/uL MPV 10.9 (9.4-12.4) fL Immature Gran % (Auto) 0.3 (0.0-0.4) % Neut % (Auto) 65.6 (45-73) % Lymph % (Auto) 23.3 (20-40) % Boyle % (Auto) 8.4 (2-11) % Eos % (Auto) 1.8 (0-4) % Baso % (Auto) 0.6 (0-2) % Lymph # (Auto) 1.8 (1.2-4.9) X10*3/uL Boyle # (Auto) 0.7 (0.1-1.2) X10*3/uL Eos # (Auto) 0.1 (0.0-0.4) X10*3/uL Baso # (Auto) 0.1 (0.0-0.2) X10*3/uL Abs Immat Gran (auto) 0.02 (0.00-0.03) X10*3/uL Absolute Neuts (auto) 5.1 (2.0-8.3) x10*3/uL Absolute Nucleated RBC 0.000 (0.0-0.012) X10*3/uL Nucleated RBC % (auto) 0.0 (0.0-0.2) /100WBC Sodium 143 (135-145) mmol/L Potassium 3.9 (3.3-5.1) mmol/L Chloride 109 H (96-108) mmol/L Carbon Dioxide 26 (22-29) mmol/L Anion Gap 12 (12-20) BUN 10 (9-16) mg/dL Creatinine 0.58 (0.5-1.4) mg/dL Estim Creat Clear Calc 216.5 Estimated GFR > 60 Random Glucose 106 (60-115) mg/dL Calcium 8.4 D (8.4-10.2) mg/dL Total Bilirubin 0.5 (0.0-1.0) mg/dL AST 57 H (5-37) U/L ALT 65 H (0-40) U/L Alkaline Phosphatase 73 (39-117) U/L Total Protein 6.9 (6.5-8.0) g/dL Albumin 3.6 (3.5-5.0) g/dL Urine Color Yellow Urine Appearance Cloudy Urine pH 5.5 (5.0-9.0) Ur Specific [place] >= 1.030 H (1.005-1.025) Urine Protein Negative (Neg-Trace) mg/dL Urine Glucose (UA) 500 H (Negative) mg/dL Urine Ketones Trace (Negative) mg/dL Urine Blood Negative (Negative) Urine Nitrite Negative (Negative) Ur Leukocyte Esterase Negative (Negative) Urine Opiates Screen Not Detected (Not Detect) Ur Buprenorphine Scrn Not Detected (Not Detect) ng/mL Ur Oxycodone Screen Not Detected (Not Detect) ng/mL Urine Methadone Screen Not Detected (Not Detect) ng/mL Urine Fentanyl Screen Not Detected (Not Detect) Ur Barbiturates Screen Not Detected (Not Detect) Ur Phencyclidine Scrn Not Detected (Not Detect) Ur Amphetamines Screen Not Detected (Not Detect) U Benzodiazepines Scrn Not Detected (Not Detect) Urine Cocaine Screen POSITIVE H (Not Detect) U Marijuana (THC) Screen POSITIVE H (Not Detect) Ethyl Alcohol < 10 mg/dL Discharge Plan Discharge Clinical Impression: Cocaine abuse Depressed Qualifiers: Depression Type: unspecified Qualified Code(s): F32.A - Depression, unspecified Prescriptions: No Action Combivent Respimat 20-100 mcg/actuation mist 1 puff INHALATION QID lorazepam 1 mg tablet 1 mg PO BID PRN (Reason: anxiety) clonidine HCl 0.1 mg Tablet 0.1 mg PO BEDTIME Qty: 15 1RF Protocol: Hold for SBP< HOLD for SBP < : 90 olanzapine 5 mg Tablet 5 mg PO TID PRN (Reason: agitation) Qty: 15 0RF folic acid 1 mg Tablet 1 mg PO DAILY Qty: 30 0RF bupropion HCl 300 mg Tablet Extended Release 24 Hr 300 mg PO DAILY Qty: 15 1RF thiamine mononitrate (vit B1) 100 mg Tablet 100 mg PO DAILY Qty: 30 0RF duloxetine 30 mg capsule,delayed release(DR/EC) 30 mg PO QAM Qty: 30 0RF duloxetine 60 mg capsule,delayed release(DR/EC) 60 mg PO DAILY Qty: 30 0RF albuterol sulfate 90 mcg/actuation HFA aerosol inhaler 90 mcg inhalation Q4H PRN (Reason: Shortness Of Breath) lisinopril 20 mg tablet 10 mg PO DAILY ropinirole 2 mg tablet 6 mg PO BEDTIME trazodone 50 mg tablet 50 mg PO BEDTIME tizanidine 2 mg capsule 2 mg PO TID PRN (Reason: Pain) Interventions: [place]-Suicide Risk Severity Scale Last Done: 10/07/24 08:41 Print Language: Turkish
[2024-10-07 08:26] VITALS: BP 152/92; PULSE 89; RESP 20; TEMP 36.6; O2SAT 96; BMI 42.3
[2024-10-07 08:39] VITALS: RESP 20
--- NOTE | 2024-10-07 09:00 | MHC.EDTECH ---
Patient has 1:1 sitter beside the bed , very camp and rest quietly in his bed.
[2024-10-07 09:14] LABS: MANUAL DIFF FLAG NO
[2024-10-07 09:17] LABS: Basophils Absolute Auto 0.1 X10*3/uL (0.0-0.2); Basophils Percent Auto 0.6 % (0-2); Eosinophils Absolute Auto 0.1 X10*3/uL (0.0-0.4); Eosinophils Percent Auto 1.8 % (0-4); Hematocrit 41.4 % (42.0-52.0); Hemoglobin 14.1 g/dl (14.0-18.0); Imm Gran Abs Auto 0.02 X10*3/uL (0.00-0.03); Imm Gran Pct Auto 0.3 % (0.0-0.4); Lymphocytes Absolute Auto 1.8 X10*3/uL (1.2-4.9); Lymphocytes Percent Auto 23.3 % (20-40); Mean Corpuscular HGB Conc 34.1 g/dl (31.0-36.0); Mean Corpuscular Hemoglobin 32.3 pg (27.0-33.0); Mean Corpuscular Volume 94.7 fL (80.0-98.0); Mean Platelet Volume 10.9 fL (9.4-12.4); Monocytes Absolute Auto 0.7 X10*3/uL (0.1-1.2); Monocytes Percent Auto 8.4 % (2-11); Neutrophils Absolute Auto 5.1 x10*3/uL (2.0-8.3); Neutrophils Percent Auto 65.6 % (45-73); Platelet Count 229 X10*3/uL (160-400); Red Blood Count 4.37 X10*6/uL (4.60-5.80); Red Cell Distribution Width 13.3 % (11.0-16.0); White Blood Count 7.7 X10*3/uL (4.8-10.8)
[2024-10-07 09:27] LABS: Amphetamine Screen Urine Not Detected (Not Detect); Barbiturates, Urine Not Detected (Not Detect); Benzodiazepines Screen Urine Not Detected (Not Detect); Buprenorphine Scr Not Detected (Not Detect); Cannabinoid Screen Urine POSITIVE (Not Detect); Cocaine Screen Urine POSITIVE (Not Detect); Fentanyl, urine Not Detected (Not Detect); Methadone Screen, Urine Not Detected (Not Detect); Opiate Screen Urine Not Detected (Not Detect); Oxycodone Screen Urine Not Detected (Not Detect); Phencyclidine Screen Urine Not Detected (Not Detect)
[2024-10-07 09:30] LABS: Alanine Aminotransferase 65 U/L (0-40); Albumin Level 3.6 g/dL (3.5-5.0); Alkaline Phosphatase 73 U/L (39-117); Anion Gap 12 (12-20); Aspartate Amino Transferase 57 U/L (5-37); Bilirubin Total 0.5 mg/dL (0.0-1.0); Blood Urea Nitrogen 10 mg/dL (9-16); Calcium 8.4 mg/dL (8.4-10.2); Carbon Dioxide 26 mmol/L (22-29); Chloride 109 mmol/L (96-108); Creatinine Clr Calc Pharmacy 216.5; Estimated Glomerular Filt Rate > 60; Ethanol < 10 mg/dL; Glucose Random 106 mg/dL (60-115); Potassium 3.9 mmol/L (3.3-5.1); Sodium 143 mmol/L (135-145); Total Protein 6.9 g/dL (6.5-8.0)
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
--- NOTE | 2024-10-07 10:20 | PC.NURSE ---
pt is currently requesting his requip has not had it over the last 24hours, provider aware
--- NOTE | 2024-10-07 10:25 | PC.NURSE ---
care team at bedside
[2024-10-07 11:13] VITALS: BP 148/95; PULSE 87; RESP 20; TEMP 36.4; O2SAT 98
[2024-10-07] MEDS: rOPINIRole HCL 2 MG TABLET PO ×2 (11:14)
--- NOTE | 2024-10-07 11:21 | PC.NURSE ---
report given to Christiano caruso pt being moved to the pod
--- NOTE | 2024-10-07 13:06 | PC.NURSE ---
was told that he was sectioned by CARE team and became very agitated, states that the information that the CARE team has is not accurate, yelling, threatening to leave and states he doesn't care about security or getting restrained, made a couple phone calls to his mother and his friend and screamed at both of them , swearing loudly, attempts made to talk with pt but would not converse, pt stayed in his room starting at the wall for approx 30 min and then lay in bed quietly and currently laying in bed
--- NOTE | 2024-10-07 13:18 | ECG_ITS ---
Test Reason : CHECK PROLONG QT Blood Pressure : / mmHG Vent. Rate : 090 BPM Atrial Rate : 090 BPM P-R Int : 142 ms QRS Dur : 068 ms QT Int : 372 ms P-R-T Axes : 077 035 -09 degrees QTc Int : 455 ms Normal sinus rhythm with sinus arrhythmia Normal ECG When compared with ECG of 21-AUG-2024 16:50, Borderline criteria for Inferior infarct are no longer Present Referred By: Lawrence Vilchis Electronically Signed By:PB RUSHING
[2024-10-07 13:46] LABS: Appearance Urine Cloudy; Color Urine Yellow; Glucose Urine UA 500 mg/dL (Negative); Leukocyte Esterase Urine Negative (Negative); Nitrite Urine Negative (Negative); PH 5.5 (5.0-9.0); Specific Gravity - Urine >= 1.030 (1.005-1.025); Urine Blood Negative (Negative); Urine Ketones Trace mg/dL (Negative); Urine Protein Negative (Neg-Trace)
[2024-10-07] MEDS: OLANZapine 5 MG TABLET PO (14:17)
[2024-10-07] MEDS: LORazepam 1 MG TABLET 2 MG PO (14:17)
--- NOTE | 2024-10-07 14:40 | PHA.MEDREC ---
Addendum entered by Gabi Norton RPh 10/07/24 14:55: reviewed by [facility]. Original Note: Pharmacy Consult ? Medication Reconciliation Pharmacy has completed the medication reconciliation. Spoke to Patient mother and son over the phone to confirm med list. Mother was able to read off patients bottles. Mother was only able to confirm a few medication, Albuterol sul 90 mg HFA inhaler, Clonidine 0.1 mg , Duloxetine 30 mg and 60 mg, Folic acid 1 mg, Lisinopril 20 mg, Lorazapam 1 mg, Ropinirole 2 mg, Vitamin B1 100 mg, and Trazadone 50 mg. Spoke to patient to confirm all other medications . Patient said yes you everything on the med rec. [place] [facility] [place] he states there was no change in his medications. discharge packet new medications for Bupropion 300 mg, last filled 08/25/24 for 15 days, Clonidine 0.1 mg (last filled 08/25/24 for 15 days), Olonzapine 5 mg last filled 08/25/24 for 15 days. Couldn't confirm if patient was still taking. So, left unconfirmed. Patient states he still take Vitamin D2 50,000 every Saturday, however patient last filled 01/01/24 for 84 day left off med rec.
--- NOTE | 2024-10-07 19:39 | PC.NURSE ---
Addendum entered by Eden Ngo RN 10/08/24 07:19: Pt admitted for SI, arrived to ED as section 12 after friends and mother were concerned about comments pt was making about wanting to . Pt denies meaning anything when he made these statements. Currently denies SI/HI/AVH. Recent relapse on cocaine, denies alcohol use for at least a couple of days Pt is pleasant but superficial, poor insight into behaviors and situation. Pt on CPAP overnight. Original Note: Baron Pickering is a 38 year old male that was admitted to at 18:40 from the [facility], where he signed a CV. Skin check was performed and unremarkable. [facility] is able to contract for safety and was placed on 15 minute checks.
[2024-10-07 20:00] VITALS: BP 150/95; PULSE 91; RESP 16; TEMP 36.4; O2SAT 98
[2024-10-07 23:48] VITALS: PULSE 75; RESP 14; O2SAT 96
[2024-10-08] VITALS (7 sets, daily range): BP systolic 138–157; BP diastolic 72–92; PULSE 73–85; RESP 16–29; TEMP 36.4–36.7; O2SAT 95–98
--- NOTE | 2024-10-08 08:55 | PC.RT ---
Rt went to the floor and pt is refusing to neb tx's. tigered Dr. Flores and he will change him to prn.
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
[2024-10-08] MEDS: DULoxetine HCl 30 MG CAPSULE.DR 90 MG PO (10:09)
[2024-10-08] MEDS: buPROPion HCl XL 300 MG TAB.ER.24H PO (10:09)
[2024-10-08] MEDS: lisinopriL 10 MG TABLET PO (10:10)
[2024-10-08] MEDS: Thiamine HCL 100 MG TABLET PO (10:11)
[2024-10-08] MEDS: OLANZapine 5 MG TABLET PO ×3 (10:56→22:56)
[2024-10-08] MEDS: LORazepam 1 MG TABLET PO ×2 (12:32→22:53)
[2024-10-08] MEDS: rOPINIRole HCL 2 MG TABLET PO (14:53)
[2024-10-08] MEDS: rOPINIRole HCL 2 MG TABLET 6 MG PO (22:35)
[2024-10-08] MEDS: cloNIDine HCL 0.1 MG TABLET PO (22:35)
[2024-10-08] MEDS: traZODone HCL 50 MG TABLET PO (22:36)
[2024-10-08] MEDS: lamoTRIgine 25 MG TABLET PO (22:36)
[2024-10-08] MEDS: Magnesium Hydrox/Alum Hydrox 30 ML ORAL.SUSP PO (22:53)
[2024-10-09 08:00] VITALS: BP 137/88; PULSE 86; TEMP 36.9; O2SAT 98
[2024-10-09] MEDS: lisinopriL 10 MG TABLET PO (08:21)
[2024-10-09] MEDS: OLANZapine 5 MG TABLET PO ×2 (08:21→20:38)
[2024-10-09] MEDS: DULoxetine HCl 30 MG CAPSULE.DR 90 MG PO (08:22)
[2024-10-09] MEDS: Folic Acid 1 MG TABLET PO (08:22)
[2024-10-09] MEDS: buPROPion HCl XL 150 MG TAB.ER.24H PO (08:22)
[2024-10-09] MEDS: Thiamine HCL 100 MG TABLET PO (08:22)
--- NOTE | 2024-10-09 10:27 | HO.PSYCHPN ---
Subjective Subjective Date of Service: 10/09/24 Reason For Visit: SI Subjective Notes: Conditional Voluntary Healthcare Proxy: No Guardianship: No Medical Problems Affecting Mental Status: No Interim History: Reviewed with Baron concerns from partner, family, CHD. He acknowledges all are factual and did occur, yet is puzzled with the concern. Discussed family meeting for next week. He will consider. Tolerating Lamictal/Olanzapine Discussed that current admission will not be brief as we will need to sort out what is happending with his depression and threats of suicide. He accepted this well. We discussed his current concern of hacking/ransom threat. Contacted [employer] and they will be able to help him, he just needs to call them and they will come to the unit to see him and advise Medication Compliance: Yes Side effects from medications: No Attending Groups: No Review of Systems Acute medical concerns: No Review of Systems Review of Systems Yes all other systems are reviewed and are negative Mental Status Exam Mental Status Exam Patient Appearance: Fatigued and Disheveled Patient Orientation: Person, Place, Time and Situation Level of Consciousness: Alert Patient Behavior: Guarded and Talkative Mood Description: Withdrawn, Depressed and Apprehensive Affect Description: Apprehensive Patient Cognition Impaired: No Ability to Follow Directions: Good Speech Pattern: Spontaneous Speech Memory Description: Episodic Impaired Hallucinations: None Delusions: Not Present Perceptual Disturbances: Derealization Thought Process: Distracted and Rumination Thought Content: positive for Circumstantial, positive for Goal Oriented and positive for Suicidal Ideation (denies) Depressive Symptoms: Increased Irritability, Thoughts of /Suicide (denies) and Loss of Energy Abnormal Motor Activity Signs and Symptoms: Restlessness Judgement: Poor Diagnostics Vital Signs (24Hr): Vital Signs - 24 hr 10/08/24 20:00 10/08/24 22:35 10/08/24 23:22 Temperature 98.1 F Pulse Rate 77 Respiratory Rate 16 29 H Blood Pressure 154/85 H 138/72 Pulse Oximetry 96 Oxygen Delivery Method Room Air 10/09/24 08:00 Temperature 98.4 F Pulse Rate 86 Respiratory Rate Blood Pressure 137/88 Pulse Oximetry 98 Oxygen Delivery Method Room Air BMI result Body Mass Index 42.3 Labs 10/07/24 09:10 10/07/24 09:10 Labs: Laboratory Results - last 48 hr 10/07/24 09:13 Urine Color Yellow Urine Appearance Cloudy Urine pH 5.5 Ur Specific [place] >= 1.030 H Urine Protein Negative Urine Glucose (UA) 500 H Urine Ketones Trace Urine Blood Negative Urine Nitrite Negative Ur Leukocyte Esterase Negative Medications Medications Current Medications Acetaminophen (Acetaminophen 325 Mg Tablet) 650 mg PO Q6H PRN PRN Reason: Headache/Pain Mild Scale (1-3) Al Hydroxide/Mg Hydroxide (Magnesium Hydrox/Alum Hydrox 30 Ml Oral.Susp) 30 ml PO Q6H PRN PRN Reason: Heartburn/Nausea Last Admin: 10/08/24 22:53 Dose: 30 ml Albuterol Sulfate (Albuterol Sulfate 90 Mcg 8 Gm Inhaler) 2 puff INHALE RQ4H PRN PRN Reason: Shortness of Breath Albuterol/Ipratropium (Albuterol/Iprat 2.5/0.5mg 3 Ml Ampul.Neb) 3 ml INHALE RQID PRN PRN Reason: Shortness of Breath Bupropion HCl (Bupropion Hcl Xl 150 Mg Tab.Er.24h) 150 mg PO DAILY [facility] Last Admin: 10/09/24 08:22 Dose: 150 mg Clonidine HCl (Clonidine Hcl 0.1 Mg Tablet) 0.1 mg PO BEDTIME [facility]; Protocol Last Admin: 10/08/24 22:35 Dose: 0.1 mg Duloxetine HCl (Duloxetine Hcl 30 Mg Capsule.Dr) 90 mg PO DAILY [facility] Last Admin: 10/09/24 08:22 Dose: 90 mg Folic Acid (Folic Acid 1 Mg Tablet) 1 mg PO DAILY [facility] Last Admin: 10/09/24 08:22 Dose: 1 mg Hydroxyzine HCl (Hydroxyzine Hcl 25 Mg Tablet) 25 mg PO Q6H PRN PRN Reason: Anxiety Lamotrigine (Lamotrigine 25 Mg Tablet) 25 mg PO BEDTIME [facility] Last Admin: 10/08/24 22:36 Dose: 25 mg Lisinopril (Lisinopril 10 Mg Tablet) 10 mg PO DAILY [facility]; Protocol Last Admin: 10/09/24 08:21 Dose: 10 mg Lorazepam (Lorazepam 1 Mg Tablet) 1 mg PO BID PRN PRN Reason: Anxiety Last Admin: 10/08/24 22:53 Dose: 1 mg Magnesium Hydroxide (Milk Of Magnesia 30 Ml Oral.Susp) 30 ml PO DAILY PRN PRN Reason: Constipation Nicotine (Nicotine 21 Mg Patch.Td24) 21 mg TRANSDERMA DAILY PRN PRN Reason: smoking cessation Nicotine Polacrilex (Nicotine Polacrilex 2 Mg Gum) 4 mg BUCCAL Q2H PRN PRN Reason: Nicotine Cravings Nicotine Polacrilex (Nicotine Polacrilex 2 Mg Gum) 4 mg BUCCAL Q2H PRN PRN Reason: nicotine cravings Olanzapine (Olanzapine 5 Mg Tablet) 5 mg PO TID PRN PRN Reason: agitation Last Admin: 10/08/24 22:56 Dose: 5 mg Olanzapine (Olanzapine 5 Mg Tablet) 5 mg PO TID PRN PRN Reason: agitation Olanzapine (Olanzapine 5 Mg Tablet) 5 mg PO BID [facility] Last Admin: 10/09/24 08:21 Dose: 5 mg Ropinirole HCl (Ropinirole Hcl 2 Mg Tablet) 6 mg PO BEDTIME [facility] Last Admin: 10/08/24 22:35 Dose: 6 mg Thiamine HCl (Thiamine Hcl 100 Mg Tablet) 100 mg PO DAILY [facility] Last Admin: 10/09/24 08:22 Dose: 100 mg Tizanidine HCl (Tizanidine Hcl 4 Mg Tablet) 2 mg PO TID PRN PRN Reason: Pain, Mild (Pain Scale 1-3) Trazodone HCl (Trazodone Hcl 50 Mg Tablet) 50 mg PO BEDTIME MRX1 PRN PRN Reason: Insomnia Trazodone HCl (Trazodone Hcl 50 Mg Tablet) 50 mg PO BEDTIME [facility] Last Admin: 10/08/24 22:36 Dose: 50 mg Allergies Allergies Allergy/AdvReac Type Severity Reaction Status Date / Time baclofen Allergy Unknown ITCH, Verified 10/07/24 08:31 Dizziness hydrocodone [From Vicodin] Allergy Unknown Itching Verified 10/07/24 08:31 naproxen Allergy Unknown Unknown Verified 10/07/24 08:31 tramadol [TRAMADOL] Allergy Unknown ITCH Verified 10/07/24 08:31 Assessment & Plan Assessment & Plan (1) MDD (major depressive disorder), recurrent severe, without psychosis: Status: Acute Code(s): F33.2 - Major depressive disorder, recurrent severe without psychotic features (2) Cocaine abuse: Status: Acute Code(s): F14.10 - Cocaine abuse, uncomplicated (3) Alcohol abuse: Status: Acute Code(s): F10.10 - Alcohol abuse, uncomplicated (4) Cannabis use disorder: Status: Acute Code(s): F12.90 - Cannabis use, unspecified, uncomplicated Plan Recurrent MDD, R/O Mood disorder, substance induced Cocaine Use Disorder, Cannabis Use Disorder, Alcohol Use Disorder. 10/09/24: Continue current plan. Plan: Admit, CV, 15 minute checks Collateral contact Diagnostics as needed Medication eval. --Lamictal 25 mg HS-mood stabilization --Olanzapine 5 mg bid--mood stabilization --Decrease Wellbutrin to 150 mg XL daily Reason for continued inpatient stay Substantial Risk for: rapid decompensation Time Spent With Patient Time: Total time managing care of this patient today ____ minutes.
[2024-10-09 20:00] VITALS: BP 151/69; PULSE 92; RESP 14; TEMP 36.4; O2SAT 95
[2024-10-09] MEDS: cloNIDine HCL 0.1 MG TABLET PO (20:37)
[2024-10-09] MEDS: traZODone HCL 50 MG TABLET PO (20:38)
[2024-10-09] MEDS: rOPINIRole HCL 2 MG TABLET 6 MG PO (20:38)
[2024-10-09] MEDS: lamoTRIgine 25 MG TABLET PO (20:38)
[2024-10-10 00:03] VITALS: PULSE 88; RESP 14; O2SAT 96
[2024-10-10 08:49] VITALS: BP 134/85; PULSE 98; RESP 16; TEMP 36.5; O2SAT 96
[2024-10-10] MEDS: Folic Acid 1 MG TABLET PO (09:16)
[2024-10-10] MEDS: DULoxetine HCl 30 MG CAPSULE.DR 90 MG PO (09:16)
[2024-10-10] MEDS: Thiamine HCL 100 MG TABLET PO (09:16)
[2024-10-10] MEDS: lisinopriL 10 MG TABLET PO (09:16)
[2024-10-10] MEDS: buPROPion HCl XL 150 MG TAB.ER.24H PO (09:16)
[2024-10-10] MEDS: OLANZapine 5 MG TABLET PO ×2 (09:16→20:57)
--- NOTE | 2024-10-10 10:31 | HO.PSYCHPN ---
Subjective Subjective Date of Service: 10/10/24 Reason For Visit: SI Subjective Notes: Conditional Voluntary Healthcare Proxy: No Guardianship: No Medical Problems Affecting Mental Status: No Interim History: Patient was seen and discussed in rounds today. Records and plans were reviewed. He has been stable, eating and sleeping adequately. He is tolerating the medication changes. He is going to be pursuing the issue of being ?act? by the police who have agreed to investigate. Still having moderate depression and anxiety. No SI. No changes were made today Review of Systems Review of Systems Yes all other systems are reviewed and are negative Mental Status Exam Mental Status Exam Narrative: In today's visit he is alert, oriented and pleasant. Normal speech. Little eye contact. Affect is appropriate and constricted. No acute signs of psychosis. No overt delusions. He is able to move all limbs. No abnormalities of gait. No SI/HI. Cognitively is grossly intact. Judgment is intact Diagnostics Vital Signs (24Hr): Vital Signs - 24 hr 10/09/24 20:00 10/10/24 00:03 10/10/24 08:49 Temperature 97.5 F 97.7 F Pulse Rate 92 98 Respiratory Rate 14 14 16 Blood Pressure 151/69 H 134/85 Pulse Oximetry 95 96 Oxygen Delivery Method Room Air Room Air BMI result Body Mass Index 42.3 Labs 10/07/24 09:10 10/07/24 09:10 Medications Medications Current Medications Acetaminophen (Acetaminophen 325 Mg Tablet) 650 mg PO Q6H PRN PRN Reason: Headache/Pain Mild Scale (1-3) Al Hydroxide/Mg Hydroxide (Magnesium Hydrox/Alum Hydrox 30 Ml Oral.Susp) 30 ml PO Q6H PRN PRN Reason: Heartburn/Nausea Last Admin: 10/08/24 22:53 Dose: 30 ml Albuterol Sulfate (Albuterol Sulfate 90 Mcg 8 Gm Inhaler) 2 puff INHALE RQ4H PRN PRN Reason: Shortness of Breath Albuterol/Ipratropium (Albuterol/Iprat 2.5/0.5mg 3 Ml Ampul.Neb) 3 ml INHALE RQID PRN PRN Reason: Shortness of Breath Bupropion HCl (Bupropion Hcl Xl 150 Mg Tab.Er.24h) 150 mg PO DAILY [facility] Last Admin: 10/10/24 09:16 Dose: 150 mg Clonidine HCl (Clonidine Hcl 0.1 Mg Tablet) 0.1 mg PO BEDTIME [facility]; Protocol Last Admin: 10/09/24 20:37 Dose: 0.1 mg Duloxetine HCl (Duloxetine Hcl 30 Mg Capsule.Dr) 90 mg PO DAILY [facility] Last Admin: 10/10/24 09:16 Dose: 90 mg Folic Acid (Folic Acid 1 Mg Tablet) 1 mg PO DAILY [facility] Last Admin: 10/10/24 09:16 Dose: 1 mg Hydroxyzine HCl (Hydroxyzine Hcl 25 Mg Tablet) 25 mg PO Q6H PRN PRN Reason: Anxiety Lamotrigine (Lamotrigine 25 Mg Tablet) 25 mg PO BEDTIME [facility] Last Admin: 10/09/24 20:38 Dose: 25 mg Lisinopril (Lisinopril 10 Mg Tablet) 10 mg PO DAILY [facility]; Protocol Last Admin: 10/10/24 09:16 Dose: 10 mg Lorazepam (Lorazepam 1 Mg Tablet) 1 mg PO BID PRN PRN Reason: Anxiety Last Admin: 10/08/24 22:53 Dose: 1 mg Magnesium Hydroxide (Milk Of Magnesia 30 Ml Oral.Susp) 30 ml PO DAILY PRN PRN Reason: Constipation Nicotine (Nicotine 21 Mg Patch.Td24) 21 mg TRANSDERMA DAILY PRN PRN Reason: smoking cessation Nicotine Polacrilex (Nicotine Polacrilex 2 Mg Gum) 4 mg BUCCAL Q2H PRN PRN Reason: Nicotine Cravings Nicotine Polacrilex (Nicotine Polacrilex 2 Mg Gum) 4 mg BUCCAL Q2H PRN PRN Reason: nicotine cravings Olanzapine (Olanzapine 5 Mg Tablet) 5 mg PO TID PRN PRN Reason: agitation Last Admin: 10/08/24 22:56 Dose: 5 mg Olanzapine (Olanzapine 5 Mg Tablet) 5 mg PO TID PRN PRN Reason: agitation Olanzapine (Olanzapine 5 Mg Tablet) 5 mg PO BID [facility] Last Admin: 10/10/24 09:16 Dose: 5 mg Ropinirole HCl (Ropinirole Hcl 2 Mg Tablet) 6 mg PO BEDTIME [facility] Last Admin: 10/09/24 20:38 Dose: 6 mg Thiamine HCl (Thiamine Hcl 100 Mg Tablet) 100 mg PO DAILY [facility] Last Admin: 10/10/24 09:16 Dose: 100 mg Tizanidine HCl (Tizanidine Hcl 4 Mg Tablet) 2 mg PO TID PRN PRN Reason: Pain, Mild (Pain Scale 1-3) Trazodone HCl (Trazodone Hcl 50 Mg Tablet) 50 mg PO BEDTIME MRX1 PRN PRN Reason: Insomnia Trazodone HCl (Trazodone Hcl 50 Mg Tablet) 50 mg PO BEDTIME [facility] Last Admin: 10/09/24 20:38 Dose: 50 mg Allergies Allergies Allergy/AdvReac Type Severity Reaction Status Date / Time baclofen Allergy Unknown ITCH, Verified 10/07/24 08:31 Dizziness hydrocodone [From Vicodin] Allergy Unknown Itching Verified 10/07/24 08:31 naproxen Allergy Unknown Unknown Verified 10/07/24 08:31 tramadol [TRAMADOL] Allergy Unknown ITCH Verified 10/07/24 08:31 Assessment & Plan Assessment & Plan (1) MDD (major depressive disorder), recurrent severe, without psychosis: Status: Acute Code(s): F33.2 - Major depressive disorder, recurrent severe without psychotic features (2) Cocaine abuse: Status: Acute Code(s): F14.10 - Cocaine abuse, uncomplicated (3) Alcohol abuse: Status: Acute Code(s): F10.10 - Alcohol abuse, uncomplicated (4) Cannabis use disorder: Status: Acute Code(s): F12.90 - Cannabis use, unspecified, uncomplicated Plan Recurrent MDD, R/O Mood disorder, substance induced Cocaine Use Disorder, Cannabis Use Disorder, Alcohol Use Disorder. 10/09/24: Continue current plan. Plan: Admit, CV, 15 minute checks Collateral contact Diagnostics as needed Medication eval. --Lamictal 25 mg HS-mood stabilization --Olanzapine 5 mg bid--mood stabilization --Decrease Wellbutrin to 150 mg XL daily 10/10:Continue current regimen and plans. Reason for continued inpatient stay Substantial Risk for: rapid decompensation Time Spent With Patient Time: Total time managing care of this patient today ____ minutes.
[2024-10-10] MEDS: Acetaminophen 325 MG TABLET 650 MG PO (10:40)
[2024-10-10] MEDS: LORazepam 1 MG TABLET PO ×2 (10:41→21:00)
[2024-10-10 12:21] LABS: Estimated Average Glucose 117 mg/dL; Hemoglobin A1C 152.3669 umol/L; Hemoglobin A1c % 5.7 % (<6.0); Total Hemoglobin (HGBA1C) 3965.9339 umol/L
[2024-10-10] MEDS: rOPINIRole HCL 2 MG TABLET 6 MG PO ×2 (15:20→20:56)
[2024-10-10 20:00] VITALS: BP 120/69; PULSE 66; RESP 14; O2SAT 95
[2024-10-10] MEDS: cloNIDine HCL 0.1 MG TABLET PO (20:56)
[2024-10-10] MEDS: lamoTRIgine 25 MG TABLET PO (20:56)
[2024-10-11 00:13] VITALS: RESP 14
[2024-10-11 08:35] VITALS: BP 124/88; PULSE 93; RESP 16; TEMP 36.6; O2SAT 97
[2024-10-11 08:49] VITALS: BP 124/88
[2024-10-11] MEDS: OLANZapine 5 MG TABLET PO ×2 (08:49→21:04)
[2024-10-11] MEDS: lisinopriL 10 MG TABLET PO (08:49)
[2024-10-11] MEDS: DULoxetine HCl 30 MG CAPSULE.DR 90 MG PO (08:49)
[2024-10-11] MEDS: Thiamine HCL 100 MG TABLET PO (08:50)
[2024-10-11] MEDS: Folic Acid 1 MG TABLET PO (08:50)
--- NOTE | 2024-10-11 08:51 | P.PNPSI_ITS ---
Subjective Subjective Date of Service: 10/11/24 Reason For Visit: SI Subjective Notes: Conditional Voluntary Healthcare Proxy: No Guardianship: No Medical Problems Affecting Mental Status: No Interim History: Patient was seen and discussed in rounds today. Records and plans were reviewed. He states that he did very well with the extra dose of Requip yesterday afternoon so I changed his order to 6 mg b.i.d.. He also states that his Wellbutrin should be 300 mg a day which I will change. Eating and sleeping adequately. He is pleasant. Slept 9 hours. No other changes were made Review of Systems Review of Systems Yes all other systems are reviewed and are negative Mental Status Exam Mental Status Exam Narrative: In today's visit he is alert, oriented and pleasant. Normal speech. Little eye contact. Affect is appropriate and constricted. No acute signs of psychosis. No overt delusions. He is able to move all limbs. No abnormalities of gait. No SI/HI. Cognitively is grossly intact. Judgment is intact Diagnostics Vital Signs (24Hr): Vital Signs - 24 hr 10/10/24 20:00 10/11/24 00:13 Pulse Rate 66 Respiratory Rate 14 14 Blood Pressure 120/69 Pulse Oximetry 95 Oxygen Delivery Method Room Air BMI result Body Mass Index 42.3 Labs 10/07/24 09:10 10/07/24 09:10 Labs: Laboratory Results - last 48 hr 10/10/24 12:06 Estimat Average Glucose 117 Hemoglobin A1c % 5.7 Medications Medications Current Medications Acetaminophen (Acetaminophen 325 Mg Tablet) 650 mg PO Q6H PRN PRN Reason: Headache/Pain Mild Scale (1-3) Last Admin: 10/10/24 10:40 Dose: 650 mg Al Hydroxide/Mg Hydroxide (Magnesium Hydrox/Alum Hydrox 30 Ml Oral.Susp) 30 ml PO Q6H PRN PRN Reason: Heartburn/Nausea Last Admin: 10/08/24 22:53 Dose: 30 ml Albuterol Sulfate (Albuterol Sulfate 90 Mcg 8 Gm Inhaler) 2 puff INHALE RQ4H PRN PRN Reason: Shortness of Breath Albuterol/Ipratropium (Albuterol/Iprat 2.5/0.5mg 3 Ml Ampul.Neb) 3 ml INHALE RQID PRN PRN Reason: Shortness of Breath Bupropion HCl (Bupropion Hcl Xl 150 Mg Tab.Er.24h) 150 mg PO DAILY [facility] Last Admin: 10/10/24 09:16 Dose: 150 mg Clonidine HCl (Clonidine Hcl 0.1 Mg Tablet) 0.1 mg PO BEDTIME [facility]; Protocol Last Admin: 10/10/24 20:56 Dose: 0.1 mg Duloxetine HCl (Duloxetine Hcl 30 Mg Capsule.Dr) 90 mg PO DAILY [facility] Last Admin: 10/10/24 09:16 Dose: 90 mg Folic Acid (Folic Acid 1 Mg Tablet) 1 mg PO DAILY [facility] Last Admin: 10/10/24 09:16 Dose: 1 mg Hydroxyzine HCl (Hydroxyzine Hcl 25 Mg Tablet) 25 mg PO Q6H PRN PRN Reason: Anxiety Lamotrigine (Lamotrigine 25 Mg Tablet) 25 mg PO BEDTIME [facility] Last Admin: 10/10/24 20:56 Dose: 25 mg Lisinopril (Lisinopril 10 Mg Tablet) 10 mg PO DAILY [facility]; Protocol Last Admin: 10/10/24 09:16 Dose: 10 mg Lorazepam (Lorazepam 1 Mg Tablet) 1 mg PO BID PRN PRN Reason: Anxiety Last Admin: 10/10/24 21:00 Dose: 1 mg Magnesium Hydroxide (Milk Of Magnesia 30 Ml Oral.Susp) 30 ml PO DAILY PRN PRN Reason: Constipation Nicotine (Nicotine 21 Mg Patch.Td24) 21 mg TRANSDERMA DAILY PRN PRN Reason: smoking cessation Nicotine Polacrilex (Nicotine Polacrilex 2 Mg Gum) 4 mg BUCCAL Q2H PRN PRN Reason: Nicotine Cravings Nicotine Polacrilex (Nicotine Polacrilex 2 Mg Gum) 4 mg BUCCAL Q2H PRN PRN Reason: nicotine cravings Olanzapine (Olanzapine 5 Mg Tablet) 5 mg PO TID PRN PRN Reason: agitation Last Admin: 10/08/24 22:56 Dose: 5 mg Olanzapine (Olanzapine 5 Mg Tablet) 5 mg PO TID PRN PRN Reason: agitation Olanzapine (Olanzapine 5 Mg Tablet) 5 mg PO BID [facility] Last Admin: 10/10/24 20:57 Dose: 5 mg Thiamine HCl (Thiamine Hcl 100 Mg Tablet) 100 mg PO DAILY [facility] Last Admin: 10/10/24 09:16 Dose: 100 mg Tizanidine HCl (Tizanidine Hcl 4 Mg Tablet) 2 mg PO TID PRN PRN Reason: Pain, Mild (Pain Scale 1-3) Trazodone HCl (Trazodone Hcl 50 Mg Tablet) 50 mg PO BEDTIME MRX1 PRN PRN Reason: Insomnia Trazodone HCl (Trazodone Hcl 50 Mg Tablet) 50 mg PO BEDTIME [facility] Last Admin: 10/09/24 20:38 Dose: 50 mg Allergies Allergies Allergy/AdvReac Type Severity Reaction Status Date / Time baclofen Allergy Unknown ITCH, Verified 10/07/24 08:31 Dizziness hydrocodone [From Vicodin] Allergy Unknown Itching Verified 10/07/24 08:31 naproxen Allergy Unknown Unknown Verified 10/07/24 08:31 tramadol [TRAMADOL] Allergy Unknown ITCH Verified 10/07/24 08:31 Assessment & Plan Assessment & Plan (1) MDD (major depressive disorder), recurrent severe, without psychosis: Status: Acute Code(s): F33.2 - Major depressive disorder, recurrent severe without psychotic features (2) Cocaine abuse: Status: Acute Code(s): F14.10 - Cocaine abuse, uncomplicated (3) Alcohol abuse: Status: Acute Code(s): F10.10 - Alcohol abuse, uncomplicated (4) Cannabis use disorder: Status: Acute Code(s): F12.90 - Cannabis use, unspecified, uncomplicated Plan Recurrent MDD, R/O Mood disorder, substance induced Cocaine Use Disorder, Cannabis Use Disorder, Alcohol Use Disorder. 10/09/24: Continue current plan. Plan: Admit, CV, 15 minute checks Collateral contact Diagnostics as needed Medication eval. --Lamictal 25 mg HS-mood stabilizati 10/11: Continue current regimen and planson --Olanzapine 5 mg bid--mood stabilization --Decrease Wellbutrin to 150 mg XL daily 10/10:Continue current regimen and plans. 10/11: Continue current regimen and plans. Increase Requip to 6 mg b.i.d. and Wellbutrin XL to 300 mg Guardian/Caregiver educated on: medication risk/benefits Reason for continued inpatient stay Substantial Risk for: med/psych decompensation Time Spent With Patient Time: Total time managing care of this patient today ____ minutes.
[2024-10-11] MEDS: buPROPion HCl XL 300 MG TAB.ER.24H PO (09:36)
[2024-10-11] MEDS: LORazepam 1 MG TABLET PO ×2 (09:39→21:04)
[2024-10-11] MEDS: rOPINIRole HCL 2 MG TABLET 6 MG PO ×2 (13:15→21:04)
[2024-10-11 19:46] VITALS: BP 130/89; PULSE 94; RESP 16; TEMP 36.7; O2SAT 95
[2024-10-11 21:03] VITALS: BP 130/89
[2024-10-11] MEDS: cloNIDine HCL 0.1 MG TABLET PO (21:03)
[2024-10-11] MEDS: lamoTRIgine 25 MG TABLET PO (21:04)
[2024-10-11] MEDS: traZODone HCL 50 MG TABLET PO (21:04)
[2024-10-12 00:35] VITALS: PULSE 79; RESP 16; O2SAT 97
[2024-10-12 08:34] VITALS: BP 143/79; PULSE 85; TEMP 36.4; O2SAT 96
[2024-10-12] MEDS: lisinopriL 10 MG TABLET PO (09:02)
[2024-10-12] MEDS: OLANZapine 5 MG TABLET PO ×2 (09:02→20:51)
[2024-10-12] MEDS: buPROPion HCl XL 300 MG TAB.ER.24H PO (09:03)
[2024-10-12] MEDS: Thiamine HCL 100 MG TABLET PO (09:03)
[2024-10-12] MEDS: rOPINIRole HCL 2 MG TABLET 6 MG PO ×2 (09:03→20:51)
[2024-10-12] MEDS: DULoxetine HCl 30 MG CAPSULE.DR 90 MG PO (09:03)
[2024-10-12] MEDS: Folic Acid 1 MG TABLET PO (09:03)
[2024-10-12] MEDS: LORazepam 1 MG TABLET PO ×2 (09:07→20:50)
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
[2024-10-12 20:00] VITALS: BP 133/78; PULSE 105; RESP 16; TEMP 36.5; O2SAT 96
[2024-10-12] MEDS: traZODone HCL 50 MG TABLET PO ×2 (20:49)
[2024-10-12 20:50] VITALS: BP 133/78
[2024-10-12] MEDS: cloNIDine HCL 0.1 MG TABLET PO (20:50)
[2024-10-12] MEDS: lamoTRIgine 25 MG TABLET PO (20:51)
[2024-10-13 00:18] VITALS: PULSE 75; RESP 16; O2SAT 96
[2024-10-13] MEDS: OLANZapine 5 MG TABLET PO ×3 (03:34→16:09)
[2024-10-13] MEDS: traZODone HCL 50 MG TABLET PO ×2 (03:34→21:10)
[2024-10-13] MEDS: buPROPion HCl XL 300 MG TAB.ER.24H PO (08:30)
[2024-10-13] MEDS: Thiamine HCL 100 MG TABLET PO (08:30)
[2024-10-13] MEDS: rOPINIRole HCL 2 MG TABLET 6 MG PO ×2 (08:30→21:10)
[2024-10-13] MEDS: DULoxetine HCl 30 MG CAPSULE.DR 90 MG PO (08:30)
[2024-10-13] MEDS: lisinopriL 10 MG TABLET PO (08:30)
[2024-10-13] MEDS: Folic Acid 1 MG TABLET PO (08:31)
[2024-10-13] MEDS: LORazepam 1 MG TABLET PO ×2 (08:31→21:13)
[2024-10-13 08:45] VITALS: BP 132/88; PULSE 104; RESP 16; TEMP 36.9; O2SAT 96
[2024-10-13 09:09] VITALS: BP 133/60; PULSE 86; RESP 18; TEMP 36.7; O2SAT 96
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
[2024-10-13] MEDS: Magnesium Hydrox/Alum Hydrox 30 ML ORAL.SUSP PO (16:09)
[2024-10-13] MEDS: Ibuprofen 600 MG TABLET PO (16:09)
[2024-10-13] MEDS: TiZANidine HCL 4 MG TABLET 2 MG PO ×2 (16:10→21:13)
[2024-10-13] MEDS: OLANZapine 2.5 MG TABLET PO (21:10)
[2024-10-13] MEDS: lamoTRIgine 25 MG TABLET PO (21:10)
[2024-10-13] MEDS: cloNIDine HCL 0.1 MG TABLET PO (21:10)
--- NOTE | 2024-10-14 08:51 | HO.PSYCHPN ---
Subjective Subjective Date of Service: 10/14/24 Reason For Visit: SI Subjective Notes: Conditional Voluntary and 3 Day Healthcare Proxy: No Guardianship: No Medical Problems Affecting Mental Status: No Interim History: Pt was seen, reviewed with team. Preparing for discharge on 10/15. Denies SI/HI/AH/VH. I will stay with the medicine this time . Medication Compliance: Yes Side effects from medications: No Attending Groups: Intermittent Review of Systems Acute medical concerns: No Medical Review of Systems: unchanged Review of Systems Review of Systems Yes all other systems are reviewed and are negative Mental Status Exam Mental Status Exam Patient Appearance: Disheveled Patient Orientation: Person, Place, Time and Situation Level of Consciousness: Alert Patient Behavior: Talkative and Good Eye Contact Mood Description: Constricted Affect Description: Constricted Patient Cognition Impaired: No Ability to Follow Directions: Good Speech Pattern: Spontaneous Speech Memory Description: Episodic Impaired Hallucinations: None Delusions: Not Present Thought Process: Evasive Thought Content: positive for Circumstantial and positive for Suicidal Ideation (denies) Depressive Symptoms: Thoughts of /Suicide (denies) Judgement: Fair Diagnostics Vital Signs (24Hr): Vital Signs - 24 hr 10/13/24 09:09 Temperature 98.0 F Pulse Rate 86 Respiratory Rate 18 Blood Pressure 133/60 Pulse Oximetry 96 Oxygen Delivery Method Room Air BMI result Body Mass Index 42.3 Labs 10/07/24 09:10 10/07/24 09:10 Medications Medications Current Medications Acetaminophen (Acetaminophen 325 Mg Tablet) 650 mg PO Q6H PRN PRN Reason: Headache/Pain Mild Scale (1-3) Last Admin: 10/10/24 10:40 Dose: 650 mg Al Hydroxide/Mg Hydroxide (Magnesium Hydrox/Alum Hydrox 30 Ml Oral.Susp) 30 ml PO Q6H PRN PRN Reason: Heartburn/Nausea Last Admin: 10/13/24 16:09 Dose: 30 ml Albuterol Sulfate (Albuterol Sulfate 90 Mcg 8 Gm Inhaler) 2 puff INHALE RQ4H PRN PRN Reason: Shortness of Breath Albuterol/Ipratropium (Albuterol/Iprat 2.5/0.5mg 3 Ml Ampul.Neb) 3 ml INHALE RQID PRN PRN Reason: Shortness of Breath Bupropion HCl (Bupropion Hcl Xl 300 Mg Tab.Er.24h) 300 mg PO DAILY [facility]IO Last Admin: 10/13/24 08:30 Dose: 300 mg Clonidine HCl (Clonidine Hcl 0.1 Mg Tablet) 0.1 mg PO BEDTIME [facility]; Protocol Last Admin: 10/13/24 21:10 Dose: 0.1 mg Duloxetine HCl (Duloxetine Hcl 30 Mg Capsule.Dr) 90 mg PO DAILY [facility] Last Admin: 10/13/24 08:30 Dose: 90 mg Folic Acid (Folic Acid 1 Mg Tablet) 1 mg PO DAILY [facility] Last Admin: 10/13/24 08:31 Dose: 1 mg Hydroxyzine HCl (Hydroxyzine Hcl 25 Mg Tablet) 25 mg PO Q6H PRN PRN Reason: Anxiety Ibuprofen (Ibuprofen 600 Mg Tablet) 600 mg PO Q8H PRN PRN Reason: Pain, Moderate(Pain Scale 4-6) Last Admin: 10/13/24 16:09 Dose: 600 mg Lamotrigine (Lamotrigine 25 Mg Tablet) 25 mg PO BEDTIME [facility] Last Admin: 10/13/24 21:10 Dose: 25 mg Lisinopril (Lisinopril 10 Mg Tablet) 10 mg PO DAILY [facility]; Protocol Last Admin: 10/13/24 08:30 Dose: 10 mg Lorazepam (Lorazepam 1 Mg Tablet) 1 mg PO BID PRN PRN Reason: Anxiety Last Admin: 10/13/24 21:13 Dose: 1 mg Magnesium Hydroxide (Milk Of Magnesia 30 Ml Oral.Susp) 30 ml PO DAILY PRN PRN Reason: Constipation Nicotine (Nicotine 21 Mg Patch.Td24) 21 mg TRANSDERMA DAILY PRN PRN Reason: smoking cessation Nicotine Polacrilex (Nicotine Polacrilex 2 Mg Gum) 4 mg BUCCAL Q2H PRN PRN Reason: Nicotine Cravings Nicotine Polacrilex (Nicotine Polacrilex 2 Mg Gum) 4 mg BUCCAL Q2H PRN PRN Reason: nicotine cravings Olanzapine (Olanzapine 5 Mg Tablet) 5 mg PO TID PRN PRN Reason: agitation Last Admin: 10/13/24 16:09 Dose: 5 mg Olanzapine (Olanzapine 5 Mg Tablet) 5 mg PO TID PRN PRN Reason: agitation Olanzapine (Olanzapine 2.5 Mg Tablet) 2.5 mg PO BID [facility] Last Admin: 10/13/24 21:10 Dose: 2.5 mg Ropinirole HCl (Ropinirole Hcl 2 Mg Tablet) 6 mg PO BID [facility] Last Admin: 10/13/24 21:10 Dose: 6 mg Thiamine HCl (Thiamine Hcl 100 Mg Tablet) 100 mg PO DAILY [facility] Last Admin: 10/13/24 08:30 Dose: 100 mg Tizanidine HCl (Tizanidine Hcl 4 Mg Tablet) 2 mg PO TID PRN PRN Reason: Pain, Mild (Pain Scale 1-3) Last Admin: 10/13/24 21:13 Dose: 2 mg Trazodone HCl (Trazodone Hcl 50 Mg Tablet) 50 mg PO BEDTIME MRX1 PRN PRN Reason: Insomnia Last Admin: 10/13/24 03:34 Dose: 50 mg Trazodone HCl (Trazodone Hcl 50 Mg Tablet) 50 mg PO BEDTIME [facility] Last Admin: 10/13/24 21:10 Dose: 50 mg Allergies Allergies Allergy/AdvReac Type Severity Reaction Status Date / Time baclofen Allergy Unknown ITCH, Verified 10/07/24 08:31 Dizziness hydrocodone [From Vicodin] Allergy Unknown Itching Verified 10/07/24 08:31 naproxen Allergy Unknown Unknown Verified 10/07/24 08:31 tramadol [TRAMADOL] Allergy Unknown ITCH Verified 10/07/24 08:31 Assessment & Plan Assessment & Plan (1) MDD (major depressive disorder), recurrent severe, without psychosis: Status: Acute Code(s): F33.2 - Major depressive disorder, recurrent severe without psychotic features (2) Cocaine abuse: Status: Acute Code(s): F14.10 - Cocaine abuse, uncomplicated (3) Alcohol abuse: Status: Acute Code(s): F10.10 - Alcohol abuse, uncomplicated (4) Cannabis use disorder: Status: Acute Code(s): F12.90 - Cannabis use, unspecified, uncomplicated Plan Recurrent MDD, R/O Mood disorder, substance induced Cocaine Use Disorder, Cannabis Use Disorder, Alcohol Use Disorder. 10/09/24: Continue current plan. Plan: Admit, CV, 15 minute checks Collateral contact Diagnostics as needed Medication eval. --Lamictal 25 mg HS-mood stabilizati 10/11: Continue current regimen and planson --Olanzapine 5 mg bid--mood stabilization --Decrease Wellbutrin to 150 mg XL daily 10/10:Continue current regimen and plans. 10/11: Continue current regimen and plans. Increase Requip to 6 mg b.i.d. and Wellbutrin XL to 300 mg 10/12: Continue regime/plan. Three day notice to 10/15. 10/13: Ibuprofen prn Decrease Olanzapine to 2.5 mg bid TDN to 10/15. 10/14: DC 10/15. Reason for continued inpatient stay Substantial Risk for: rapid decompensation Time Spent With Patient Time: Total time managing care of this patient today ____ minutes.
[2024-10-14 09:14] VITALS: BP 147/82; PULSE 102; RESP 15; TEMP 36.9; O2SAT 96
[2024-10-14] MEDS: buPROPion HCl XL 300 MG TAB.ER.24H PO (09:17)
[2024-10-14] MEDS: Folic Acid 1 MG TABLET PO (09:17)
[2024-10-14] MEDS: rOPINIRole HCL 2 MG TABLET 6 MG PO ×2 (09:17→22:23)
[2024-10-14] MEDS: Thiamine HCL 100 MG TABLET PO (09:17)
[2024-10-14] MEDS: lisinopriL 10 MG TABLET PO (09:17)
[2024-10-14] MEDS: DULoxetine HCl 30 MG CAPSULE.DR 90 MG PO (09:17)
[2024-10-14] MEDS: OLANZapine 2.5 MG TABLET PO ×2 (09:18→22:24)
[2024-10-14] MEDS: TiZANidine HCL 4 MG TABLET 2 MG PO ×2 (09:25→22:24)
[2024-10-14] MEDS: LORazepam 1 MG TABLET PO ×2 (09:25→22:24)
[2024-10-14 22:25] VITALS: BP 147/80; PULSE 115; RESP 16; TEMP 36.3; O2SAT 96
[2024-10-14] MEDS: lamoTRIgine 25 MG TABLET PO (22:25)
[2024-10-14] MEDS: traZODone HCL 50 MG TABLET PO (22:25)
[2024-10-14] MEDS: cloNIDine HCL 0.1 MG TABLET PO (22:26)
[2024-10-15] MEDS: Albuterol Sulfate 90 MCG 8 GM INHALER 2 PUFF INHALE (01:50)
[2024-10-15 07:53] VITALS: BP 127/71; PULSE 74; RESP 20; TEMP 36.5; O2SAT 94
[2024-10-15] MEDS: rOPINIRole HCL 2 MG TABLET 6 MG PO (08:25)
[2024-10-15] MEDS: lisinopriL 10 MG TABLET PO (08:26)
[2024-10-15] MEDS: TiZANidine HCL 4 MG TABLET 2 MG PO (08:26)
[2024-10-15] MEDS: Folic Acid 1 MG TABLET PO (08:27)
[2024-10-15] MEDS: DULoxetine HCl 30 MG CAPSULE.DR 90 MG PO (08:27)
[2024-10-15] MEDS: Thiamine HCL 100 MG TABLET PO (08:27)
[2024-10-15] MEDS: OLANZapine 2.5 MG TABLET PO (08:27)
[2024-10-15] MEDS: LORazepam 1 MG TABLET PO (08:27)
[2024-10-15] MEDS: buPROPion HCl XL 300 MG TAB.ER.24H PO (08:27)
--- NOTE | 2024-10-15 10:56 | P.DS_ITS ---
DS: Providers Provider Date of admission: 10/07/24 16:22 Primary care physician: [facility] DS: Diagnosis Discharge Diagnosis (1) MDD (major depressive disorder), recurrent severe, without psychosis: Status: Acute (2) Cocaine abuse: Status: Acute (3) Alcohol abuse: Status: Acute (4) Cannabis use disorder: Status: Acute DS: Medications Discharge Medications Home Medications: Home Medications ?Medication ?Instructions ?Recorded ?Confirmed albuterol sulfate 90 mcg/actuation 90 mcg inhalation Q4H PRN 08/20/22 10/07/24 aerosol inhaler Shortness Of Breath ropinirole 2 mg tablet 6 mg PO BEDTIME 05/18/24 10/07/24 tizanidine 2 mg capsule 2 mg PO TID PRN Pain 05/18/24 10/07/24 trazodone 50 mg tablet 50 mg PO BEDTIME 05/18/24 10/07/24 ipratropium 20 mcg-albuterol 100 1 puff inhalation QID 06/03/24 10/07/24 mcg/actuation mist for inhalation (Combivent Respimat) Previous Rx's ?Medication ?Instructions ?Recorded bupropion HCl 300 mg 24 hr tablet, 300 mg PO DAILY #15 tabs 08/25/24 extended release clonidine HCl 0.1 mg tablet 0.1 mg PO BEDTIME #15 tabs 08/25/24 duloxetine 30 mg capsule,delayed 30 mg PO QAM #30 caps 08/25/24 release duloxetine 60 mg capsule,delayed 60 mg PO DAILY #30 caps 08/25/24 release folic acid 1 mg tablet 1 mg PO DAILY #30 tabs 08/25/24 thiamine mononitrate (vit B1) 100 100 mg PO DAILY #30 tabs 08/25/24 mg tablet lamotrigine 25 mg tablet 25 mg PO BEDTIME #30 tabs 10/14/24 lisinopril 10 mg tablet 10 mg PO DAILY #30 tabs 10/14/24 lorazepam 1 mg tablet 1 mg PO BID PRN anxiety #14 tabs 10/14/24 olanzapine 2.5 mg tablet 2.5 mg PO BID #60 tabs 10/14/24 Data Data Completed and Pending Completed studies during hospitalization [Text1]: 10/10/24 12:06 Estimat Average Glucose 117 Hemoglobin A1c % 5.7 DS: Summary Time Spent with Patient Time attestation: Total time managing care of this patient today ____ minutes. Discharge Plan Discharge Anticipated Discharge Date/Time: 10/15/24 12:00 Patient Disposition: Home, Self-Care Discharge Diagnosis: Recurrent Severe Major Depression Cocaine use disorder Alcohol use disorder Cannabis use disorder Referrals: Psychiatrist: Harshil [facility] ([facility]) [Other] - 11/20/24 9:00 am (Telehealth ) [facility] ([facility]) [Other] - 1 Week (You declined referral for therapy. If you change your mind or feel you need additional services or supports, you may call the [facility] at the above number or walk-in anytime M-F 8am-6pm or Sat & Sun 9am-5pm to request to complete an intake ) [facility] [Primary Care Provider] - 1 Week Discharge Medications: New olanzapine 2.5 mg Tablet 2.5 mg PO BID Qty: 60 0RF lamotrigine 25 mg Tablet 25 mg PO BEDTIME Qty: 30 0RF lisinopril 10 mg Tablet 10 mg PO DAILY Qty: 30 0RF Protocol: Hold for SBP< HOLD for SBP < : 90 Continued lorazepam 1 mg tablet 1 mg PO BID PRN (Reason: anxiety) Qty: 14 4RF Combivent Respimat 20-100 mcg/actuation mist 1 puff INHALATION QID clonidine HCl 0.1 mg Tablet 0.1 mg PO BEDTIME Qty: 15 1RF Protocol: Hold for SBP< HOLD for SBP < : 90 folic acid 1 mg Tablet 1 mg PO DAILY Qty: 30 0RF bupropion HCl 300 mg Tablet Extended Release 24 Hr 300 mg PO DAILY Qty: 15 1RF thiamine mononitrate (vit B1) 100 mg Tablet 100 mg PO DAILY Qty: 30 0RF duloxetine 30 mg capsule,delayed release(DR/EC) 30 mg PO QAM Qty: 30 0RF duloxetine 60 mg capsule,delayed release(DR/EC) 60 mg PO DAILY Qty: 30 0RF albuterol sulfate 90 mcg/actuation HFA aerosol inhaler 90 mcg inhalation Q4H PRN (Reason: Shortness Of Breath) ropinirole 2 mg tablet 6 mg PO BEDTIME trazodone 50 mg tablet 50 mg PO BEDTIME tizanidine 2 mg capsule 2 mg PO TID PRN (Reason: Pain) Discontinued olanzapine 5 mg Tablet 5 mg PO TID PRN (Reason: agitation) Qty: 15 0RF Patient Comments: Last picked up on 08/25/2024 per pharmacy Rx Instructions: Last picked up on 08/25/2024 lisinopril 20 mg tablet 10 mg PO DAILY Discharge Orders: Discharge Order (Routine); Ordered 10/15/24 Ordered By: Radhika Landaverde Diet: Advance to usual diet Activity on Discharge: As tolerated Stand Alone Forms: Patient Portal Discharge page, Community Support Print Language: Indian Care Plan Goals: Mood and Behavioral Stabilization Abstinence from Substances Health Concerns: Mood and Behavioral Stabilization Abstinence from Substances Plan of Treatment: Attend scheduled appointments Take medications as directed Assessment: Discharge today on a three day notice of intent. Denies SI/HI/AH/VH. No sx of acute milana or psychosis Family is in agreement with discharge plan.
== END 2024-10-15 11:23 | disposition home or self-care (01) | DRG 751 ==
LOC: HO.ED 11:29 → HO.PM5 16:27
PROVIDERS: Psychiatry & Neurology Psychiatry; Admitting Provider Psychiatry & Neurology Psychiatry; Emergency Provider Emergency Medicine; Visit Provider Clinical Nurse Specialist Psychiatric/Mental Health, Adult
DX: F33.2 Major depressive disorder, recurrent severe without psychotic features (principal); R45.851 Suicidal ideations; F10.10 Alcohol abuse, uncomplicated; F14.10 Cocaine abuse, uncomplicated; Z79.899 Other long term (current) drug therapy
CPT/HCPCS: 36415; 80053; 80307; 81003; 83036; 85025; 93005; 94660; 99285

== ENCOUNTER → 2024-10-07 13:18 | Outpatient (BNV) | payer MEDICAID, SELFPAY | PROVIDERS: Admitting Provider Psychiatry & Neurology Psychiatry; Emergency Provider Emergency Medicine; Visit Provider Internal Medicine | DX: R45.851 Suicidal ideations (principal); I10 Essential (primary) hypertension | CPT/HCPCS: 93010 ==

== ENCOUNTER → 2024-10-07 16:22 | Outpatient (BNV) | payer OTHER, SELFPAY | PROVIDERS: Admitting Provider Psychiatry & Neurology Psychiatry; Emergency Provider Emergency Medicine; Visit Provider Clinical Nurse Specialist Psychiatric/Mental Health, Adult | DX: F33.2 Major depressive disorder, recurrent severe without psychotic features (principal); F14.10 Cocaine abuse, uncomplicated; F10.10 Alcohol abuse, uncomplicated; F12.90 Cannabis use, unspecified, uncomplicated | CPT/HCPCS: 99231; 99232 ==

== ENCOUNTER 2025-07-26 13:29 | Outpatient (AMB) | payer MEDICAID, SELFPAY ==
--- NOTE | 2025-07-26 13:39 | A.OFFVIS_ITS ---
Intake Visit Reasons: 1 year follow up Allergies baclofen Allergy (Unknown, Verified 10/07/24 08:31) ITCH, Dizziness hydrocodone (From Vicodin) Allergy (Unknown, Verified 10/07/24 08:31) Itching naproxen Allergy (Unknown, Verified 10/07/24 08:31) Unknown tramadol (TRAMADOL) Allergy (Unknown, Verified 10/07/24 08:31) ITCH Medication List - Last Reconciled 07/26/25 by New Marks MD albuterol sulfate 90 mcg/actuation 90 mcg inhalation Q4H PRN bupropion HCl XL 300 mg PO DAILY clonidine HCl 0.1 mg See Protocol PO BEDTIME duloxetine 60 mg PO DAILY duloxetine 30 mg PO QAM folic acid 1 mg PO DAILY ipratropium-albuterol 20-100 mcg/actuation (Combivent Respimat) 1 puff inhalation QID lamotrigine 25 mg PO BEDTIME lisinopril 10 mg See Protocol PO DAILY lorazepam 1 mg PO BID PRN olanzapine 2.5 mg PO BID ropinirole 6 mg (3 x 2 mg) PO BEDTIME thiamine mononitrate (vit B1) 100 mg PO DAILY tizanidine 2 mg PO TID PRN trazodone 50 mg PO BEDTIME HPI Comments Details: 39 yo RH man, a [place] Hungarian with family h/o musclar dystrophy, was diagnosed with when he was 14. MD has affected his limb strength. He is presenting with severe neck pain and an inability to lift his neck. Symptoms involve a grinding sensation leading to significant pain radiating into his skull and shoulders. Notably, there is an abnormal forward flexion of the neck. No imaging has been conducted yet as the patient is waiting to establish care with a primary physician. Current management for associated restless legs syndrome includes Clonidine and Lorazepam, among other medications. The patient reports substantial interference with daily activities due to the pain. [facility] Medical History (Updated 07/26/25 @ 13:44 by New Marks MD) Cannabis use disorder MDD (major depressive disorder), recurrent severe, without psychosis Walker as ambulation aid Quit smoking (~04/2023) Elevated LFTs RLS (restless legs syndrome) Chronic pain syndrome Insomnia Morbid obesity Gallstones Carpal tunnel syndrome Right hip pain Numbness and tingling in both hands Scoliosis Back pain Hyperlipidemia GERD (gastroesophageal reflux disease) HTN (hypertension) GABRIEL on CPAP Hypoxemia Tobacco use disorder Opioid use disorder WPW (Jaffg-Lxrkitqqr-Afkvy syndrome) Muscular dystrophy Surgical History History of laparoscopic cholecystectomy (~06/09/24) H/O cardiac radiofrequency ablation (~2009) Family History Mother Hypotension Muscular dystrophy Father Heart disease Social History Household Members: Family Household Members Other:: Mother Housing: House Are you a primary district manager primary care sales to a significant other at home: No Do you presently have visiting nurse or other home services: No Unable to assess alcohol history related to: Unknown Alcohol intake: current Alcohol intake frequency: holidays/special occasions only Patient Tobacco Use Status: Former Tobacco user Tobacco use type: Cigarette Cigarette Packs Per Day: 1 Years Smoked: 20 e-Cigarette/Vaping Use: Never Used Substance Use Type: Crack/Cocaine and Marijuana service: No Sexual orientation: Straight/Heterosexual Review of Systems Const Details: - Musculoskeletal: Reports inability to lift neck, neck grinding, pain into skull and shoulders - Neurological: Reports restless legs syndrome, denies taking duloxetine - Medication Use: Reports using Clonidine, Lorazepam, Lamotrigine, Olanzapine; denies taking Mesopril due to prescription issues Physical Exam Neuro Other: Mental Status: Alert and oriented to person, place, and time. Normal attention. Normal spontaneous speech, fluency, and comprehension. No obvious issues with mood and memory. Affect is appropriate. Cranial Nerves: CN II: Visual parra full to confrontation, visual acuity intact. CN III, IV, : Pupils equal, round, reactive to light and accommodation. Extraocular movements are normal. CN V: Facial sensation is normal. CN VII: Facial movements symmetrical. CN VIII: Hearing intact to bedside conversation is normal. CN IX, X: Palate elevates symmetrically. CN XI: Shoulder shrug and head turn symmetrical. CN XII: Tongue midline without atrophy or fasciculations. There was significant forward flexion abnormality of neck. Deep tendon reflexes are trace to absent. Gait is cautious. Speech: Normal; no dysarthria or tremor. Assessment & Plan Assessment & Plan (1) Muscular dystrophy: Comment: NCV/EMG RTUE/RTLE Mild right median neuropathy across the Carpal tunnel. 12/30/23. MRI LS spine at [facility] in 2021: no sig root compression, significant atrophy of paraspinals and gluteal muscles. Code(s): G71.00 - Muscular dystrophy, unspecified Category: Medical (2) Chronic pain syndrome: Code(s): G89.4 - Chronic pain syndrome Category: Medical (3) RLS (restless legs syndrome): Code(s): G25.81 - Restless legs syndrome Category: Medical (4) Cervical dystonia: Code(s): G24.3 - Spasmodic torticollis Category: Medical Plan Impression: 1. Muscular dystrophy 2. Restless legs syndrome 3. Forward cervical dystonia resulting in significant neck pain Recommendations: Ropinirole 2 mg 3 at bedtime X-ray cervical spine Orders: Orders XR cervical spine 3V Today G24.3 - Spasmodic torticollis Coding Level of Care Code Est Pt Level 4 (48674) Diagnoses Muscular dystrophy G71.00 Chronic pain syndrome G89.4 RLS (restless legs syndrome) G25.81 Cervical dystonia G24.3
--- OUTSIDE RECORDS SUMMARY | 2025-07-26 15:52 | XMS_ITS | Clinical Summary ---
Author Organization [employer] Address [address] [place] [address] Care Team Providers Care Director Of Strategic Alliances Name Role Phone Unavailable Primary Care Provider Unavailabl e Social History Tobacco Use Types Packs/Day Years Used Date Smoking Tobacco: Never Assessed Sex and Gender Information Value Date Recorded Sex Assigned at Not on file Legal Sex Male 1:37 PM EST Gender Identity Not on file Sexual Orientation Not on file Plan of Treatment Health Maintenance Due Date Last Done Comments Depression Screening 1985 HIV Screening 1985 Lipid Panel 1985 SDOH Screening 1985 Disability Screening 1985 Alcohol/Substance Use Screening 1997 Tobacco Screening 1997 Family Planning (PISQ) 2000 HPV Vaccines (1 - Male 3-dos e series) 2000 Hepatitis C Screening 2003 DTaP/Tdap/Td Vaccines (1 - Tdap) 2004 Hepatitis B Vaccines (1 of 3 - 19+ 3-dose series) 2004 COVID-19 Vaccine (1 - 2023-2 5 season) 2025 Influenza Vaccine (#1) 2025 Zoster Vaccines (1 of 2) 2035 RSV Patients and Pa tients Aged 60 years or older (1 - 1-dose 75+ series) 2060 HIB Vaccines Aged Out No longer eligi ble based on patient's age to complete this topic Hepatitis A Vaccines Aged Out No long er eligible based on patient's age to complete this topic IPV Vaccines Aged Out No longer eligi ble based on patient's age to complete this topic Meningococcal B Vaccine Aged Out No l onger eligible based on patient's age to complete this topic Meningococcal Vaccine Aged Out No landry jacque eligible based on patient's age to complete this topic Pneumococcal Vaccine: Pediat rics (0 to 5 Years) and At-Risk Patients (6 to 49) Years Aged Out No longer eligible b ased on patient's age to complete this topic RSV under 20 months Aged Out No longe r eligible based on patient's age to complete this topic Rotavirus Vaccines Aged Out No longer eligible based on patient's age to complete this topic
== END 2025-07-26 13:51 | disposition home or self-care (01) ==
LOC: HO.HSM 13:29
PROVIDERS: Visit Provider Psychiatry & Neurology Neurology
DX: G71.00 Muscular dystrophy, unspecified (principal); G89.4 Chronic pain syndrome; G25.81 Restless legs syndrome; G24.3 Spasmodic torticollis
CPT/HCPCS: 99214

== ENCOUNTER 2025-07-26 13:29 | Outpatient (REF) | payer MEDICAID, SELFPAY ==
--- NOTE | ~2025-07-26 | XR_ITS ---
EXAMINATION: XR CERVICAL SPINE CLINICAL INFORMATION: G24.3 - Spasmodic torticollis COMPARISON: None available. TECHNIQUE: 3 views of the cervical spine were obtained. FINDINGS: Mid and lower cervical spine are obscured by overlapping bony and soft tissues. There is straightening of cervical lordosis. There is subtle anterolisthesis at C2-3, C3-4, and C4-5. C6 and below are not well demonstrated on the lateral. There is no prevertebral soft tissue swelling. XR/XR cervical spine 3V IMPRESSION: There is straightening of the expected cervical lordosis. This can be idiopathic, but can also be related to degenerative change, muscle spasm, or posterior soft tissue injury. C6 and below are obscured by overlapping bony and soft tissues. Electronically signed by: Conor Alexandre MD 07/26/2025 02:35 PM EDT
== END 2025-07-26 13:30 | disposition home or self-care (01) ==
LOC: HO.XRAY 13:29
PROVIDERS: Visit Provider Psychiatry & Neurology Neurology
DX: G71.00 Muscular dystrophy, unspecified (principal); G24.3 Spasmodic torticollis; G25.81 Restless legs syndrome; G89.4 Chronic pain syndrome
CPT/HCPCS: 72040; 99212

== ENCOUNTER → 2025-07-26 14:04 | Outpatient (BNV) | payer MEDICAID, SELFPAY | PROVIDERS: Visit Provider Radiology Diagnostic Radiology | DX: G24.3 Spasmodic torticollis (principal) | CPT/HCPCS: 72040 ==